=== PATIENT | male | born 1935 | race Caucasian/White ===

== ENCOUNTER → 2016-10-31 | Outpatient (CLI) | payer MEDICARE ==
[2016-10-31 09:50] LABS: APPEARANCE,URINE CLEAR; BILIRUBIN,URINE NEGATIVE (NEGATIVE); GLUCOSE, URINE 50 mg/dL (NEGATIVE); KETONES,URINE NEGATIVE (NEGATIVE); LEUKOCYTE ESTERASE,URINE NEGATIVE (NEGATIVE); NITRITE,URINE NEGATIVE (NEGATIVE); PROTEIN,URINE NEGATIVE (NEGATIVE); URINE SPECIFIC GRAVITY 1.011; UROBILINOGEN,URINE NEGATIVE mg/dL (<2.0)
[2016-10-31 09:57] LABS: ABSOLUTE EOSINOPHILS # (AUTO) 0.1 10^3/uL (0.0-0.6); ABSOLUTE LYMPHOCYTES (AUTO) 1.9 10^3/uL (0.5-4.7); ABSOLUTE MONOCYTES (AUTO) 0.8 10^3/uL (0.1-1.4); ABSOLUTE NEUT (AUTO) 5.6 10^3/uL (1.7-8.2); BASOPHILS % (AUTO) 0.3 % (0-2); HEMATOCRIT 39.9 % (37.9-51.0); HEMOGLOBIN 12.8 g/dL (13.5-17.0); HGB HCT DIFFERENCE -1.5; LYMPHOCYTES % (AUTO) 22.7 % (13-45); MEAN CORPUSCULAR HEMOGLOBIN 29.7 pg (27.0-33.4); MEAN CORPUSCULAR VOLUME 93 fl (80-97); MONOCYTES % (AUTO) 9.5 % (3-13); RED CELL DISTRIBUTION WIDTH 14.5 % (11.5-14.0); SEGMENTED NEUTROPHILS % (AUTO) 66.5 % (42-78); WHITE BLOOD COUNT 8.4 10^3/uL (4.0-10.5)
[2016-10-31 13:05] LABS: ALANINE AMINOTRANSFERASE 29 U/L (21-72); ALBUMIN 4.4 g/dL (3.5-5.0); ALKALINE PHOSPHATASE 82 U/L (38-126); ANION GAP 12 (5-19); ASPARTATE AMINO TRANSFERASE 27 U/L (17-59); BILIRUBIN,TOTAL 0.8 mg/dL (0.2-1.3); BLOOD UREA NITROGEN 13 mg/dL (7-20); CALCIUM 9.2 mg/dL (8.4-10.2); CARBON DIOXIDE 29 mmol/L (22-30); CHLORIDE 98 mmol/L (98-107); CREATININE RESULT 0.77 mg/dL (0.52-1.25); GLUCOSE 151 mg/dL (75-110); MAGNESIUM 2.3 mg/dL (1.6-2.3); POTASSIUM 5.1 mmol/L (3.6-5.0); SODIUM 139.4 mmol/L (137-145); TOTAL PROTEIN 7.5 g/dL (6.3-8.2)
== END ==
LOC: OD 08:20
PROVIDERS: ATTEND Internal Medicine Cardiovascular Disease
DX: Z79.899 Other long term (current) drug therapy (principal); Z79.01 Long term (current) use of anticoagulants
CPT/HCPCS: 36415; 80048; 80076; 81001; 82272; 83735; 85025; 85730

== ENCOUNTER → 2016-12-05 | Outpatient (CLI) | payer MEDICARE ==
[2016-12-05 09:11] LABS: ANION GAP 12 (5-19); BLOOD UREA NITROGEN 12 mg/dL (7-20); CALCIUM 9.6 mg/dL (8.4-10.2); CARBON DIOXIDE 26 mmol/L (22-30); CHLORIDE 100 mmol/L (98-107); CREATININE RESULT 0.72 mg/dL (0.52-1.25); GLUCOSE 146 mg/dL (75-110); MAGNESIUM 2.4 mg/dL (1.6-2.3); POTASSIUM 5.3 mmol/L (3.6-5.0); SODIUM 137.8 mmol/L (137-145)
== END ==
LOC: OD 07:20
PROVIDERS: ATTEND Internal Medicine Cardiovascular Disease
DX: Z79.899 Other long term (current) drug therapy (principal); Z79.01 Long term (current) use of anticoagulants
CPT/HCPCS: 36415; 80048; 83735

== ENCOUNTER → 2016-12-13 | Outpatient (CLI) | payer MEDICARE ==
[2016-12-13 11:03] LABS: ABSOLUTE EOSINOPHILS # (AUTO) 0.1 10^3/uL (0.0-0.6); ABSOLUTE LYMPHOCYTES (AUTO) 1.9 10^3/uL (0.5-4.7); ABSOLUTE MONOCYTES (AUTO) 0.6 10^3/uL (0.1-1.4); BASOPHILS % (AUTO) 0.2 % (0-2); EOSINOPHILS % (AUTO) 1.5 % (0-6); HEMATOCRIT 36.1 % (37.9-51.0); HEMOGLOBIN 12.1 g/dL (13.5-17.0); HGB HCT DIFFERENCE 0.2; LYMPHOCYTES % (AUTO) 21.3 % (13-45); MEAN CORPUSCULAR HEMOGLOBIN 30.5 pg (27.0-33.4); MEAN CORPUSCULAR HGB CONC 33.6 g/dL (32.0-36.0); MEAN CORPUSCULAR VOLUME 91 fl (80-97); MONOCYTES % (AUTO) 7.5 % (3-13); RED BLOOD COUNT 3.98 10^6/uL (4.35-5.55); SEGMENTED NEUTROPHILS % (AUTO) 69.5 % (42-78); WHITE BLOOD COUNT 8.7 10^3/uL (4.0-10.5)
[2016-12-13 11:25] LABS: ALANINE AMINOTRANSFERASE 25 U/L (21-72); ALBUMIN 4.1 g/dL (3.5-5.0); ALKALINE PHOSPHATASE 79 U/L (38-126); ANION GAP 12 (5-19); ASPARTATE AMINO TRANSFERASE 25 U/L (17-59); BLOOD UREA NITROGEN 13 mg/dL (7-20); CALCIUM 9.5 mg/dL (8.4-10.2); CARBON DIOXIDE 28 mmol/L (22-30); CHLORIDE 100 mmol/L (98-107); CHOLESTEROL 104.87 mg/dL (0-200); CREATININE RESULT 0.76 mg/dL (0.52-1.25); Direct HDL 36 mg/dL (>40); GLUCOSE 128 mg/dL (75-110); POTASSIUM 4.7 mmol/L (3.6-5.0); SODIUM 139.8 mmol/L (137-145); TOTAL PROTEIN 7.2 g/dL (6.3-8.2); TRIGLYCERIDES 112 mg/dL (<150)
[2016-12-13 11:28] LABS: ANION GAP 12 (5-19); BLOOD UREA NITROGEN 13 mg/dL (7-20); CALCIUM 9.7 mg/dL (8.4-10.2); CARBON DIOXIDE 28 mmol/L (22-30); CHLORIDE 101 mmol/L (98-107); CREATININE RESULT 0.76 mg/dL (0.52-1.25); GLUCOSE 128 mg/dL (75-110); POTASSIUM 4.8 mmol/L (3.6-5.0); SODIUM 140.7 mmol/L (137-145)
[2016-12-13 11:36] LABS: DIRECT LDL 38 mg/dL (<100)
== END ==
LOC: OD 08:45
PROVIDERS: ATTEND Internal Medicine Geriatric Medicine
DX: E78.5 Hyperlipidemia, unspecified (principal); I10 Essential (primary) hypertension; R06.02 Shortness of breath; E87.5 Hyperkalemia
CPT/HCPCS: 36415; 80048; 80053; 80061; 83880; 85025

== ENCOUNTER → 2017-01-19 | Outpatient (CLI) | payer MEDICARE ==
[2017-01-19 08:55] LABS: ABSOLUTE EOSINOPHILS # (AUTO) 0.1 10^3/uL (0.0-0.6); ABSOLUTE MONOCYTES (AUTO) 0.7 10^3/uL (0.1-1.4); ABSOLUTE NEUT (AUTO) 4.7 10^3/uL (1.7-8.2); BASOPHILS % (AUTO) 0.2 % (0-2); EOSINOPHILS % (AUTO) 1.8 % (0-6); HEMATOCRIT 35.7 % (37.9-51.0); HEMOGLOBIN 11.9 g/dL (13.5-17.0); LYMPHOCYTES % (AUTO) 26.7 % (13-45); MEAN CORPUSCULAR HEMOGLOBIN 30.4 pg (27.0-33.4); MEAN CORPUSCULAR HGB CONC 33.3 g/dL (32.0-36.0); MEAN CORPUSCULAR VOLUME 91 fl (80-97); MONOCYTES % (AUTO) 9.3 % (3-13); RED BLOOD COUNT 3.91 10^6/uL (4.35-5.55); RED CELL DISTRIBUTION WIDTH 15.3 % (11.5-14.0); WHITE BLOOD COUNT 7.5 10^3/uL (4.0-10.5)
[2017-01-19 09:04] LABS: APPEARANCE,URINE CLEAR; BILIRUBIN,URINE NEGATIVE (NEGATIVE); GLUCOSE, URINE NEGATIVE (NEGATIVE); KETONES,URINE NEGATIVE (NEGATIVE); LEUKOCYTE ESTERASE,URINE NEGATIVE (NEGATIVE); NITRITE,URINE NEGATIVE (NEGATIVE); PROTEIN,URINE NEGATIVE (NEGATIVE); URINE SPECIFIC GRAVITY 1.014; UROBILINOGEN,URINE NEGATIVE mg/dL (<2.0)
[2017-01-19 09:18] LABS: ALANINE AMINOTRANSFERASE 19 U/L (21-72); ALKALINE PHOSPHATASE 71 U/L (38-126); ANION GAP 14 (5-19); ASPARTATE AMINO TRANSFERASE 19 U/L (17-59); BILIRUBIN,TOTAL 0.8 mg/dL (0.2-1.3); BLOOD UREA NITROGEN 12 mg/dL (7-20); CALCIUM 8.9 mg/dL (8.4-10.2); CARBON DIOXIDE 26 mmol/L (22-30); CHLORIDE 102 mmol/L (98-107); CREATININE RESULT 0.72 mg/dL (0.52-1.25); Direct HDL 33 mg/dL (>40); GLUCOSE 133 mg/dL (75-110); MAGNESIUM 2.3 mg/dL (1.6-2.3); POTASSIUM 4.4 mmol/L (3.6-5.0); SODIUM 141.7 mmol/L (137-145); TOTAL PROTEIN 6.6 g/dL (6.3-8.2); TRIGLYCERIDES 124 mg/dL (<150)
[2017-01-19 09:29] LABS: DIRECT LDL 49 mg/dL (<100)
== END ==
LOC: OD 08:09
PROVIDERS: ATTEND Internal Medicine Cardiovascular Disease
DX: E78.00 Pure hypercholesterolemia, unspecified (principal); E87.5 Hyperkalemia; Z79.899 Other long term (current) drug therapy; Z79.01 Long term (current) use of anticoagulants
CPT/HCPCS: 36415; 80048; 80061; 80076; 81001; 82272; 83735; 85025; 85730

== ENCOUNTER → 2017-04-27 | Outpatient (CLI) | payer MEDICARE ==
[2017-04-27 08:43] LABS: APPEARANCE,URINE CLEAR; BILIRUBIN,URINE NEGATIVE (NEGATIVE); GLUCOSE, URINE NEGATIVE (NEGATIVE); KETONES,URINE NEGATIVE (NEGATIVE); LEUKOCYTE ESTERASE,URINE NEGATIVE (NEGATIVE); NITRITE,URINE NEGATIVE (NEGATIVE); PROTEIN,URINE NEGATIVE (NEGATIVE); URINE SPECIFIC GRAVITY 1.006; UROBILINOGEN,URINE NEGATIVE mg/dL (<2.0)
[2017-04-27 08:51] LABS: ABSOLUTE EOSINOPHILS # (AUTO) 0.1 10^3/uL (0.0-0.6); ABSOLUTE LYMPHOCYTES (AUTO) 1.5 10^3/uL (0.5-4.7); ABSOLUTE MONOCYTES (AUTO) 0.7 10^3/uL (0.1-1.4); ABSOLUTE NEUT (AUTO) 4.5 10^3/uL (1.7-8.2); BASOPHILS % (AUTO) 0.3 % (0-2); EOSINOPHILS % (AUTO) 1.8 % (0-6); HEMATOCRIT 36.1 % (37.9-51.0); HEMOGLOBIN 12.1 g/dL (13.5-17.0); HGB HCT DIFFERENCE 0.2; LYMPHOCYTES % (AUTO) 21.8 % (13-45); MEAN CORPUSCULAR HEMOGLOBIN 30.7 pg (27.0-33.4); MEAN CORPUSCULAR HGB CONC 33.5 g/dL (32.0-36.0); MEAN CORPUSCULAR VOLUME 92 fl (80-97); RED BLOOD COUNT 3.94 10^6/uL (4.35-5.55); RED CELL DISTRIBUTION WIDTH 15.3 % (11.5-14.0); SEGMENTED NEUTROPHILS % (AUTO) 66.1 % (42-78); WHITE BLOOD COUNT 6.8 10^3/uL (4.0-10.5)
[2017-04-27 09:09] LABS: ALANINE AMINOTRANSFERASE 26 U/L (21-72); ALBUMIN 3.8 g/dL (3.5-5.0); ALKALINE PHOSPHATASE 77 U/L (38-126); ANION GAP 11 (5-19); ASPARTATE AMINO TRANSFERASE 15 U/L (17-59); BILIRUBIN,DIRECT 0.2 mg/dL (0.0-0.4); BILIRUBIN,TOTAL 0.7 mg/dL (0.2-1.3); BLOOD UREA NITROGEN 10 mg/dL (7-20); CALCIUM 8.6 mg/dL (8.4-10.2); CARBON DIOXIDE 26 mmol/L (22-30); CHLORIDE 104 mmol/L (98-107); CREATININE RESULT 0.76 mg/dL (0.52-1.25); GLUCOSE 117 mg/dL (75-110); MAGNESIUM 2.4 mg/dL (1.6-2.3); POTASSIUM 4.5 mmol/L (3.6-5.0); SODIUM 140.5 mmol/L (137-145); TOTAL PROTEIN 6.9 g/dL (6.3-8.2)
== END ==
LOC: OD 08:06
PROVIDERS: ATTEND Internal Medicine Cardiovascular Disease
DX: Z51.81 Encounter for therapeutic drug level monitoring (principal); Z79.899 Other long term (current) drug therapy; Z79.01 Long term (current) use of anticoagulants
CPT/HCPCS: 36415; 80048; 80076; 81001; 82272; 83735; 85025; 85730

== ENCOUNTER 2017-06-26 11:54 | Inpatient (IN) | payer MEDICARE ==
--- NOTE | 2017-06-26 12:36 | ER Document Report ---
ED General - General Chief Complaint: Weakness Stated Complaint: WEAKNESS Time Seen by Provider: 06/26/17 12:17 TRAVEL OUTSIDE OF THE [place] IN LAST 30 DAYS: No - HPI Notes: 81-year-old male with history of atrial fibrillation on Xarelto presents with generalized weakness and profound fatigue. He denies any other new symptoms though finally does admit to a mild amount of nausea this morning. He does have cough but this is chronic as he has a chronic lung condition but is unsure of his COPD. He has had no fever. There is no productive sputum. Denies dysuria hematuria. No fever. Denies any new discomfort, specifically no chest pain or abdominal pain. He has noted no melena or hematochezia. Denies focal weakness numbness or tingling. Symptoms have started over the last [address] Ac. - Related Data Allergies/Adverse Reactions: tetracycline [Tetracycline] Allergy (Verified 08/06/15 14:28) dairy products Allergy (Uncoded 10/28/14 21:21) Home Medications: Current Home Medications Benzonatate [Tessalon Perles 100 mg Capsule] 100 mg PO PRN PRN 06/26/17 [History ] Diltiazem HCl [Cartia Xt] 180 mg PO DAILY 06/26/17 [History] Rivaroxaban [Xarelto] 20 mg PO DAILY 06/26/17 [History] Past Medical History - Social History Smoking Status: Never Smoker Family History: Reviewed & Not Pertinent Patient has suicidal ideation: No - Past Medical History Cardiac Medical History: Reports: Hx Coronary Artery Disease, Hx Heart Attack, Hx Hypertension Pulmonary Medical History: Reports: Hx Bronchitis, Hx COPD, Hx Pneumonia Denies: Hx Asthma Neurological Medical History: Denies: Hx Cerebrovascular Accident, Hx Seizures Renal/ Medical History: Denies: Hx Peritoneal Dialysis Malignancy Medical History: Reports Hx Skin Cancer Musculoskeltal Medical History: Reports Hx Arthritis - RA Psychiatric Medical History: Reports: Hx Depression Past Surgical History: Reports: Hx Appendectomy, Hx Cardiac Catheterization - with stents, Hx Coronary Stent, Hx Orthopedic Surgery - facial, right hand - Immunizations Hx Diphtheria, Pertussis, Tetanus Vaccination: Yes Hx Pneumococcal Vaccination: 07/09/14 Review of Systems - Review of Systems -: Yes All other systems reviewed and negative Physical Exam - Vital signs Vitals: Temp Pulse Resp BP Pulse Ox 98.7 F 79 20 131/65 H 94 06/26/17 12:04 06/26/17 12:04 06/26/17 12:04 06/26/17 12:04 06/26/17 12:04 - Notes Notes: GENERAL: VS as per nursing doc. Well-appearing, well-nourished and in no acute distress. HEAD: Atraumatic, normocephalic. EYES: Pupils equal round and reactive to light, extraocular movements intact, sclera anicteric. ENT: Nares patent, oropharynx clear without exudates, moist mucous membranes. NECK: Normal range of motion, supple without lymphadenopathy. LUNGS: Breath sounds equal bilaterally. Scattered crackles include left basilar region. HEART: Regular rate and rhythm without murmurs. ABDOMEN: Soft, protuberant but non-tender, normoactive bowel sounds. No guarding, no rebound. No masses appreciated. No Herbster sign. BACK: No CVA tenderness. EXTREMITIES: Normal range of motion, no calf tenderness, no edema. NEUROLOGICAL: Cranial nerves grossly intact. Normal speech. Normal sensory and motor exams. No gross cerebellar abnormalities. PSYCH: Normal mood, normal affect. SKIN: Warm, dry, normal turgor. Course - Re-evaluation Re-evalutation: 06/26/17 14:41 Reviewed patient's prior white blood cell counts. This is elevated compared to prior at 16.2. - Vital Signs Vital signs: Temp Pulse Resp BP Pulse Ox 98.7 F 79 19 110/59 L 93 06/26/17 12:04 06/26/17 12:04 06/26/17 13:03 06/26/17 13:03 06/26/17 13:03 - Laboratory Result Diagrams: 06/26/17 12:36 06/26/17 12:36 Laboratory results interpreted by me: 06/26/17 06/26/17 06/26/17 12:36 12:36 13:50 WBC 16.2 H RBC 4.18 L Hgb 13.0 L Hct 37.5 L RDW 15.3 H Seg Neutrophils % 89.2 H Lymphocytes % 6.0 L Absolute Neutrophils 14.5 H Glucose 123 H ALT 19 L Urine Ketones TRACE H Urine Ascorbic Acid 40 H - Diagnostic Test Radiology reviewed: Image reviewed, Reports reviewed - Possible left lower lobe pneumonia. - EKG Interpretation by Me EKG shows normal: Sinus rhythm - Right bundle branch block, borderline first- degree AV block. Normal sinus rhythm. Rate 80. No significant change from October 30, 2014 though rate has decreased - Consults Dr. Ac Time consulted: 14:47 - Recommends admit to Tele Discharge - Discharge Clinical Impression: Pneumonia, Fatigue Condition: Fair Disposition: ADMITTED INPATIENT Admitting Provider: Luz Unit Admitted: Telemetry Referrals: SAMUEL AC MD [Primary Care Provider] - Follow up as needed
[2017-06-26 12:48] LABS: ABSOLUTE MONOCYTES (AUTO) 0.8 10^3/uL (0.1-1.4); ABSOLUTE NEUT (AUTO) 14.5 10^3/uL (1.7-8.2); BASOPHILS % (AUTO) 0.1 % (0-2); HEMATOCRIT 37.5 % (37.9-51.0); HGB HCT DIFFERENCE 1.5; MEAN CORPUSCULAR HGB CONC 34.5 g/dL (32.0-36.0); MEAN CORPUSCULAR VOLUME 90 fl (80-97); MONOCYTES % (AUTO) 4.7 % (3-13); RED BLOOD COUNT 4.18 10^6/uL (4.35-5.55); RED CELL DISTRIBUTION WIDTH 15.3 % (11.5-14.0); SEGMENTED NEUTROPHILS % (AUTO) 89.2 % (42-78); WHITE BLOOD COUNT 16.2 10^3/uL (4.0-10.5)
[2017-06-26 13:12] LABS: ALANINE AMINOTRANSFERASE 19 U/L (21-72); ALBUMIN 4.1 g/dL (3.5-5.0); ALKALINE PHOSPHATASE 89 U/L (38-126); ANION GAP 13 (5-19); ASPARTATE AMINO TRANSFERASE 20 U/L (17-59); BILIRUBIN,DIRECT 0.4 mg/dL (0.0-0.4); BILIRUBIN,TOTAL 1.1 mg/dL (0.2-1.3); BLOOD UREA NITROGEN 15 mg/dL (7-20); CARBON DIOXIDE 26 mmol/L (22-30); CHLORIDE 101 mmol/L (98-107); CREATININE RESULT 0.83 mg/dL (0.52-1.25); GLUCOSE 123 mg/dL (75-110); MAGNESIUM 2.3 mg/dL (1.6-2.3); POTASSIUM 4.4 mmol/L (3.6-5.0); TOTAL PROTEIN 7.3 g/dL (6.3-8.2)
--- NOTE | 2017-06-26 13:13 | RADIOLOGY REPORT (SQ) ---
EXAM DESCRIPTION: CHEST PA/LAT COMPLETED DATE/TIME: 06/26/2017 1:04 pm REASON FOR STUDY: Cough COMPARISON: 10/28/2014 EXAM PARAMETERS: NUMBER OF VIEWS: two views TECHNIQUE: Digital Frontal and Lateral radiographic views of the chest acquired. RADIATION DOSE: NA LIMITATIONS: none FINDINGS: LUNGS AND PLEURA: Chronic interstitial changes are present. There is perhaps slightly inc reased opacification in the retrocardiac area on the left. MEDIASTINUM AND HILAR STRUCTURES: No masses or contour abnormalities. HEART AND VASCULAR STRUCTURES: Heart normal size. No evidence for failure. BONES: No acute findings. HARDWARE: None in the chest. OTHER: No other significant finding. IMPRESSION: Left lower lobe pneumonia cannot be excluded. TECHNICAL DOCUMENTATION: JOB ID: [id number] [employer]- All Rights Reserved
--- NOTE | 2017-06-26 13:14 | EKG REPORT ---
SEVERITY:- ABNORMAL ECG - SINUS RHYTHM RIGHT BUNDLE BRANCH BLOCK : Confirmed by: Carlos Young MD 26-Jun-2017 13:13:36
[2017-06-26 14:16] LABS: APPEARANCE,URINE CLEAR; BILIRUBIN,URINE NEGATIVE (NEGATIVE); GLUCOSE, URINE NEGATIVE (NEGATIVE); KETONES,URINE TRACE mg/dL (NEGATIVE); LEUKOCYTE ESTERASE,URINE NEGATIVE (NEGATIVE); NITRITE,URINE NEGATIVE (NEGATIVE); PROTEIN,URINE NEGATIVE (NEGATIVE); URINE SPECIFIC GRAVITY 1.024; UROBILINOGEN,URINE NEGATIVE mg/dL (<2.0)
[2017-06-26] MEDS ORDERED: LEVOFLOXACIN 750 MG/D5W RTU 750 MG/150 ML RTUPB IV ONE (14:46)
--- NOTE | 2017-06-26 15:50 | PDOC H&P ---
History of Present Illness Admission Date/PCP: 06/26/17 15:18 SAMUEL AC Patient complains of: Weakness and Fatigue History of Present Illness: KEIRY IVERSON JR is a 81 year old male known to my practice who presented to the ED with complain of weakness and fatigue that started since yesterday while he was at [facility]. Patient reported that he administered his biweekly Methotrexate the day before onset of his symptoms. He denied any definite fever or chills. Admitted to productive coughing which is related to his chronic interstitial lung disease. Denied any significant change in the color except intermittent greenish yellow ting. No brownish or bloody component. He denied any significant chest pain. Patient reported nausea but no vomiting. No abdominal pain. He denied any urinary symptoms to suggest any ongoing infection. Morbidities include CAD s/p stent angioplasty, Old AL, Hypertension, Chronic Interstitial Lung Disease, COPD, BPH with outflow symptoms, Rheumatoid arthritis, and Depression. Past Medical History Cardiac Medical History: Reports: Coronary Artery Disease, Myocardial Infarction , Hyperlipidema, Hypertension Pulmonary Medical History: Reports: Bronchitis, Chronic Obstructive Pulmonary Disease (COPD), Pneumonia Denies: Asthma Neurological Medical History: Denies: Seizures Endocrine Medical History: Reports: Diabetes Mellitus Type 2 Malignancy Medical History: Reports: Skin Cancer Musculoskeltal Medical History: Reports: Arthritis - RA Psychiatric Medical History: Reports: Depression Hematology: Denies: Anemia Past Surgical History Past Surgical History: Reports: Appendectomy, Cardiac Catheterization - with stents, Coronary Stent, Orthopedic Surgery - facial, right hand Social History Smoking Status: Never Smoker Frequency of Alcohol Use: Rare Hx Recreational Drug Use: No Hx Prescription Drug Abuse: No Family History Family History: Reviewed & Not Pertinent Parental Family History Reviewed: Yes Children Family History Reviewed: Yes Sibling(s) Family History Reviewed.: Yes Medication/Allergy Home Medications: Methotrexate Sodium [Methotrexate] 2.5 mg PO ASDIR 08/13/13 Tamsulosin HCl [Flomax 0.4 mg Cap.sr] 0.4 mg PO QPM #30 cap.sr.24h 06/03/14 Aclidinium Camilla [Tudorza Pressair for Inh] 1 inhaler IH BID #1 [email or web address] Aspirin [Ecotrin 81 mg EC Tablet] 81 mg PO DAILY #30 tabec 11/03/14 Fluticasone Propionate [Flovent HFA 44 mcg MDI] 2 sprays IH DAILY #1 inhaler Fluticasone/Vilanterol [Breo Ellipta 100-25 Mcg INH] 1 each IH DAILY #1 aer.[email or web address] 11/03/14 Folic Acid 1 mg PO DAILY #30 tablet 11/03/14 Nitroglycerin [Nitrostat 0.4 mg (1/150 Gr) Tabs 25/Bottle] 1 tab SL Q5MP PRN #1 bottle 11/03/14 Rosuvastatin Calcium [Crestor 20 mg Tablet] 20 mg PO QHS #30 tablet 11/03/14 Furosemide [Lasix 40 mg Tablet] 20 mg PO ASDIR PRN 08/06/15 Sotalol HCl [Sotalol] 80 mg PO BID 08/06/15 Benzonatate [Tessalon Perles 100 mg Capsule] 100 mg PO PRN PRN 06/26/17 Diltiazem HCl [Cartia Xt] 180 mg PO DAILY 06/26/17 Rivaroxaban [Xarelto] 20 mg PO DAILY 06/26/17 Allergies/Adverse Reactions: tetracycline [Tetracycline] Allergy (Verified 08/06/15 14:28) dairy products Allergy (Uncoded 10/28/14 21:21) Review of Systems Constitutional: PRESENT: fatigue, weakness. ABSENT: as per HPI, anorexia, chills, fever(s), headache(s), night sweats, weight gain, weight loss, other Eyes: PRESENT: visual disturbances - macula degeneration Ears: ABSENT: hearing changes Nose, Mouth, and Throat: ABSENT: headache(s), sore throat Cardiovascular: ABSENT: chest pain, dyspnea on exertion, edema, orthropnea, palpitations Respiratory: PRESENT: cough, sputum. ABSENT: as per HPI, dyspnea, hemoptysis, other Gastrointestinal: ABSENT: abdominal pain, constipation, diarrhea, hematemesis, hematochezia, nausea, vomiting Musculoskeletal: ABSENT: joint swelling Integumentary: ABSENT: rash, wounds Neurological: ABSENT: abnormal gait, abnormal speech, confusion, dizziness, focal weakness, syncope Psychiatric: ABSENT: anxiety, depression, homidical ideation, suicidal ideation Endocrine: ABSENT: cold intolerance, heat intolerance, polydipsia, polyuria Hematologic/Lymphatic: ABSENT: easy bleeding, easy bruising, lymphadenopathy Allergic/Immunologic: PRESENT: seasonal rhinorrhea Physical Exam Vital Signs: Temp Pulse Resp BP Pulse Ox 98.7 F 79 19 110/59 L 93 06/26/17 12:04 06/26/17 12:04 06/26/17 13:03 06/26/17 13:03 06/26/17 13:03 General appearance: PRESENT: no acute distress Head exam: PRESENT: atraumatic, normocephalic Eye exam: PRESENT: conjunctiva pink, EOMI, PERRLA. ABSENT: conjunctiva pale, scleral icterus Ear exam: PRESENT: normal external ear exam Mouth exam: PRESENT: moist, tongue midline Throat exam: ABSENT: post pharyngeal erythema, tonsillar erythema, tonsillar exudate, tonsillogmegaly, other Neck exam: PRESENT: full ROM. ABSENT: carotid bruit, JVD, lymphadenopathy, thyromegaly Respiratory exam: PRESENT: crackles - scattered, bilateral, posterior, decreased breath sounds - at lung bases Cardiovascular exam: PRESENT: RRR. ABSENT: diastolic murmur, rubs, systolic murmur Pulses: PRESENT: normal dorsalis pedis pul, +2 pedal pulses bilateral Vascular exam: PRESENT: normal capillary refill. ABSENT: pallor GI/Abdominal exam: PRESENT: normal bowel sounds, soft. ABSENT: distended, guarding, mass, organolmegaly, rebound, tenderness Rectal exam: PRESENT: deferred Gentrourinary exam: ABSENT: indwelling catheter Extremities exam: ABSENT: pedal edema Musculoskeletal exam: PRESENT: normal inspection Neurological exam: PRESENT: alert, awake, oriented to person, oriented to place , oriented to time, oriented to situation, CN II-XII grossly intact. ABSENT: motor sensory deficit Psychiatric exam: PRESENT: appropriate affect, normal mood. ABSENT: homicidal ideation, suicidal ideation Skin exam: PRESENT: dry, intact, warm. ABSENT: cyanosis, rash Results Laboratory Results: I reviewed his lab results on [employer] and contribute to my medical decision making Impressions: Chest X-Ray 06/26/17 12:31 IMPRESSION: Left lower lobe pneumonia cannot be excluded. Assessment & Plan - Diagnosis (1) Lobar pneumonia, unspecified organism Is this a current diagnosis for this admission?: Yes Plan: See admitting attending physician orders. (2) COPD (chronic obstructive pulmonary disease) Qualifiers: Emphysema type: unspecified Is this a current diagnosis for this admission?: Yes Plan: See admitting attending physician orders. (3) Rheumatoid arthritis Qualifiers: Laterality: unspecified laterality Is this a current diagnosis for this admission?: Yes Plan: See admitting attending physician orders. (5) HTN (hypertension) Qualifiers: Hypertension type: unspecified Qualified Code(s): I10 - Essential (primary ) hypertension Is this a current diagnosis for this admission?: Yes Plan: See admitting attending physician orders. - Time Time Spent: 50 to 70 Minutes Medications reviewed and adjusted accordingly: Yes Anticipated discharge: Home Within: Other - Inpatient Certification Medical Necessity: Need Close Monitoring Due to Risk of Patient Decompensation, Need For IV Fluids, Need For Continuous Telemetry Monitoring, Need for Nebulizer Therapy and Monitoring of Response, Need for IV Antibiotics, Risk of Complication if Not Cared For in Hospital Post Hospital Care: D/C Systems Support Officer Documentation - Plan Summary Plan Summary: See admitting attending physician orders.
[2017-06-26] MEDS ORDERED: GUAIFENESIN SYRP 200 MG/10 ML UDC PO PRN (15:51)
[2017-06-26] MEDS ORDERED: IPRATROPIUM/ALBUTEROL 0.5-2.5 MG/3 ML AMPUL NEB PRN (15:51)
[2017-06-26] MEDS ORDERED: NITROGLYCERIN 0.4 MG/TAB 25 TAB/BOTTLE SL PRN (15:57)
[2017-06-26 16:22] LABS: PROTHROMBIN TIME 17.9 SEC (11.4-15.4)
[2017-06-26 16:23] LABS: PARTIAL THROMBOPLASTIN TIME 39.9 SEC (23.5-35.8)
[2017-06-26] MEDS ORDERED: ACLIDINIUM BROMIDE IH SCH (18:00)
[2017-06-26] MEDS ORDERED: SOTALOL HCL 80 MG TABLET PO SCH (18:00)
[2017-06-26] MEDS: TAMSULOSIN HCL 0.4 MG CAP.SR.24H PO SCH (18:34)
[2017-06-26] MEDS: RIVAROXABAN 10 MG TABLET PO SCH (18:35)
[2017-06-26] MEDS: CEFEPIME 2 GM/D5W RTU 2 GM/50 ML RTUPB IV SCH (18:39)
[2017-06-26] MEDS: NORMAL SALINE 1000 ML 1,000 ML IV PRN (19:02)
[2017-06-26] MEDS ORDERED: (PENDING PHARMACY ID) (Rosuvastatin Calcium [Crestor 20 Mg Tablet] 20 MG) PO SCH (22:00)
[2017-06-26] MEDS: FLUTICASONE NASAL SPRAY 50 MCG/SPRY 120 SPRAY/16 GM NASL SCH (23:23)
[2017-06-26] MEDS: ATORVASTATIN CALCIUM 40 MG TABLET PO SCH (23:26)
[2017-06-26] MEDS: BENZONATATE 100 MG CAPSULE PO PRN (23:32)
[2017-06-26] MEDS: GUAIFENESIN 600 MG TABLET.SA PO SCH (23:32)
[2017-06-27 04:46] LABS: ABSOLUTE EOSINOPHILS # (AUTO) 0.1 10^3/uL (0.0-0.6); ABSOLUTE LYMPHOCYTES (AUTO) 1.7 10^3/uL (0.5-4.7); ABSOLUTE MONOCYTES (AUTO) 0.8 10^3/uL (0.1-1.4); BASOPHILS % (AUTO) 0.4 % (0-2); EOSINOPHILS % (AUTO) 0.6 % (0-6); HEMATOCRIT 31.7 % (37.9-51.0); HGB HCT DIFFERENCE 1.3; LYMPHOCYTES % (AUTO) 14.4 % (13-45); MEAN CORPUSCULAR HGB CONC 34.6 g/dL (32.0-36.0); MEAN CORPUSCULAR VOLUME 90 fl (80-97); MONOCYTES % (AUTO) 7.2 % (3-13); RED BLOOD COUNT 3.54 10^6/uL (4.35-5.55); RED CELL DISTRIBUTION WIDTH 15.6 % (11.5-14.0); SEGMENTED NEUTROPHILS % (AUTO) 77.4 % (42-78); WHITE BLOOD COUNT 11.6 10^3/uL (4.0-10.5)
[2017-06-27 05:00] LABS: ALANINE AMINOTRANSFERASE 20 U/L (21-72); ALBUMIN 3.2 g/dL (3.5-5.0); ALKALINE PHOSPHATASE 68 U/L (38-126); ANION GAP 9 (5-19); ASPARTATE AMINO TRANSFERASE 14 U/L (17-59); BILIRUBIN,DIRECT 0.3 mg/dL (0.0-0.4); BILIRUBIN,TOTAL 1.1 mg/dL (0.2-1.3); BLOOD UREA NITROGEN 14 mg/dL (7-20); CALCIUM 8.3 mg/dL (8.4-10.2); CARBON DIOXIDE 27 mmol/L (22-30); CHLORIDE 103 mmol/L (98-107); CREATININE RESULT 0.72 mg/dL (0.52-1.25); GLUCOSE 109 mg/dL (75-110); POTASSIUM 4.3 mmol/L (3.6-5.0); SODIUM 138.5 mmol/L (137-145)
[2017-06-27] MEDS: SOTALOL HCL 80 MG TABLET PO SCH ×2 (06:07→18:12)
[2017-06-27] MEDS: LANSOPRAZOLE 30 MG TAB.RAP.DR PO SCH (06:07)
[2017-06-27] MEDS: CEFEPIME 2 GM/D5W RTU 2 GM/50 ML RTUPB IV SCH ×2 (06:57→19:41)
[2017-06-27] MEDS ORDERED: (PENDING PHARMACY ID) (Fluticasone/Vilanterol [Breo Ellipta 100-25 Mcg Inh] 1 EACH) IH SCH (10:00)
[2017-06-27] MEDS ORDERED: DILTIAZEM HCL 180 MG CAPSULE.CR PO SCH (10:00)
[2017-06-27] MEDS ORDERED: FLUTICASONE PROPIONATE IH SCH (10:00)
[2017-06-27] MEDS ORDERED: (PENDING PHARMACY ID) (Diltiazem Hcl [Cartia Xt] 180 MG) PO SCH (10:00)
[2017-06-27] MEDS: FOLIC ACID 1 MG TABLET PO SCH (10:13)
[2017-06-27] MEDS: FUROSEMIDE 20 MG TABLET PO SCH (10:13)
[2017-06-27] MEDS: GUAIFENESIN 600 MG TABLET.SA PO SCH ×2 (10:13→22:41)
[2017-06-27] MEDS: DILTIAZEM HCL 180 MG CAPSULE.CR PO SCH (10:13)
[2017-06-27] MEDS: NORMAL SALINE 1000 ML 1,000 ML IV PRN ×2 (10:15→22:41)
--- NOTE | 2017-06-27 11:06 | Physician Advisory Note ---
Physician Advisor ProgressNote .: Pursuant to the plan for [facility], I have reviewed the medical record for this patient. Physician Advisor Statement: Please consider documenting, if you agree: 1. "LLL Pneumonia, could be gram neg given COPD, ILD, immunocompromise" - giving abx covering Gram negatives 2. "Immunocompromised due to MTX" 3. "Chronic Afib" vs "Paroxysmal Afib" 4. "Pt has risk for acute systolic/diastolic CHF developing while on IVF given EF 45-50% w/LVH & mod pulmonary HTN, so IVF rate is cautious" 5. 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 HR 70s-90s initially despite Sotatol which has kept HR bradycardic as of 06/27, RR as high as 22, sats on RA as low as 90%, BP dropped from 131/65 progressively to as low as 105/52 the first day. WBC 16.2, CXR = LLL PNA. Attending ordered IV Cefepime/Levaquin, NS (only at 75ml/hr, but pt has risk for acute syst/diast CHF based on ECHO of 2014 showing EF 45-50%, mod pulm HTN, mild-mod concentric LVH & RVH), O2, sputum cx, CPAP at hs. -This is not a typical otherwise-healthy adult with a pneumonia that can be managed outpatient. -He is immunocompromised, had prominent leukocytosis, showed tachycardia initially in spite of his Sotatol, and had borderline O2 sats. -His pulmonary decompensation increases risk for cardiac acute decompensation, especially given his advanced age, underlying CAD, and non-optimal O2 sats. -He has risk factors for gram negative PNA, and is being tx'd for that. -His IVF, given because , put him at increased risk for acute syst/diast CHF developing, so attending is giving them cautiously and keeping him closely monitored. -After 1 night of aggressive tx, patient still has leukocytosis. -Coags are elevated on Xarelto & his Hgb has dropped significantly, from 13 to 11, though without evidence of acute bleeding noted by this reviewer (Hgb was baseline 12 recently, so this may not be enough to concern attending unless he documents otherwise). -The anemia increases further the risks for cardiac compromise in this setting. -The stakes of sending him home on insufficient abx therapy are very high, so attending likely wants to see sputum cx results before d/c. -Pt clearly is not sufficiently medically optimized for safe d/c home at this point. Appropriate for Inpatient status. CK
[2017-06-27] MEDS ORDERED: LEVOFLOXACIN 750 MG/D5W RTU 750 MG/150 ML RTUPB IV SCH (18:00)
[2017-06-27] MEDS: TAMSULOSIN HCL 0.4 MG CAP.SR.24H PO SCH (18:12)
[2017-06-27] MEDS: RIVAROXABAN 10 MG TABLET PO SCH (18:13)
--- NOTE | 2017-06-27 20:11 | PDOC PROGRESS REPORT ---
Subjective Progress Note for:: 06/27/17 Subjective:: Patient reported some improvement in his breathing, coughing and overall health status today. No reported fever or chills. Remain on IV Cefepime and Levofloxacin therapy. No chest pain, nausea or vomiting. No abdominal pain. Physical Exam Vital Signs: Temp Pulse Resp BP Pulse Ox 97.5 F 58 L 20 118/55 L 97 06/27/17 15:50 06/27/17 15:50 06/27/17 15:50 06/27/17 15:50 06/27/17 15:50 Intake & Output 06/26/17 06/27/17 06/28/17 06:59 06:59 06:59 Intake Total 1358 2010 Output Total 1150 500 Balance 208 1510 Weight 88.7 kg General appearance: PRESENT: no acute distress Head exam: PRESENT: atraumatic, normocephalic Eye exam: ABSENT: conjunctiva pale, scleral icterus Mouth exam: PRESENT: moist Respiratory exam: PRESENT: crackles - scattered involving both lungs, decreased breath sounds - at lung bases Cardiovascular exam: PRESENT: RRR. ABSENT: diastolic murmur, rubs, systolic murmur Vascular exam: PRESENT: normal capillary refill. ABSENT: pallor GI/Abdominal exam: PRESENT: normal bowel sounds, soft. ABSENT: distended, guarding, mass, organolmegaly, rebound, tenderness Extremities exam: ABSENT: pedal edema Musculoskeletal exam: PRESENT: deformity - due to multuple joints involvement with arthritis Neurological exam: PRESENT: alert, awake, oriented to person, oriented to place , oriented to time, oriented to situation, CN II-XII grossly intact. ABSENT: motor sensory deficit Psychiatric exam: PRESENT: appropriate affect, normal mood. ABSENT: homicidal ideation, suicidal ideation Skin exam: PRESENT: dry, intact, warm. ABSENT: cyanosis, rash Results Laboratory Results: 06/27/17 04:17 06/27/17 04:17 06/27/17 06/27/17 04:17 04:17 WBC 11.6 H RBC 3.54 L Hgb 11.0 L Hct 31.7 L MCV 90 MCH 31.0 MCHC 34.6 RDW 15.6 H Plt Count 216 Seg Neutrophils % 77.4 Lymphocytes % 14.4 Monocytes % 7.2 Eosinophils % 0.6 Basophils % 0.4 Absolute Neutrophils 9.0 H Absolute Lymphocytes 1.7 Absolute Monocytes 0.8 Absolute Eosinophils 0.1 Absolute Basophils 0.0 Sodium 138.5 Potassium 4.3 Chloride 103 Carbon Dioxide 27 Anion Gap 9 BUN 14 Creatinine 0.72 Est GFR ( Amer) > 60 Est GFR (Non-Af Amer) > 60 Glucose 109 Calcium 8.3 L Total Bilirubin 1.1 AST 14 L ALT 20 L Alkaline Phosphatase 68 Total Protein 6.0 L Albumin 3.2 L Impressions: Chest X-Ray 06/26/17 12:31 IMPRESSION: Left lower lobe pneumonia cannot be excluded. Assessment & Plan - Diagnosis (1) Lobar pneumonia, unspecified organism Is this a current diagnosis for this admission?: Yes (2) COPD (chronic obstructive pulmonary disease) Qualifiers: Emphysema type: unspecified Is this a current diagnosis for this admission?: Yes (3) Rheumatoid arthritis Qualifiers: Laterality: unspecified laterality Is this a current diagnosis for this admission?: Yes (5) HTN (hypertension) Qualifiers: Hypertension type: unspecified Qualified Code(s): I10 - Essential (primary ) hypertension Is this a current diagnosis for this admission?: Yes - Time Time Spent with patient: 25-34 minutes Medications reviewed and adjusted accordingly: Yes Anticipated discharge: Home Within: Other - Inpatient Certification Based on my medical assessment, after consideration of the patient's comorbidities, presenting symptoms, or acuity I expect that the services needed warrant INPATIENT care.: Yes I certify that my determination is in accordance with my understanding of Medicare's requirements for reasonable and necessary INPATIENT services [42 CFR 412.3e].: Yes Medical Necessity: Need Close Monitoring Due to Risk of Patient Decompensation, Need For IV Fluids, Need For Continuous Telemetry Monitoring, Need for Nebulizer Therapy and Monitoring of Response, Need for IV Antibiotics, Risk of Complication if Not Cared For in Hospital Post Hospital Care: D/C See Supervisor Documentation - Plan Summary Plan Summary: Continue IV antibiotic coverage. Follow up on sputum and blood culture results. encourage use of incentive spirometer and flutter to aide lung toileting regard sputum production.
[2017-06-27] MEDS: BENZONATATE 100 MG CAPSULE PO PRN (22:41)
[2017-06-27] MEDS: ATORVASTATIN CALCIUM 40 MG TABLET PO SCH (22:41)
[2017-06-27] MEDS: FLUTICASONE NASAL SPRAY 50 MCG/SPRY 120 SPRAY/16 GM NASL SCH (22:43)
[2017-06-28] MEDS: CEFEPIME 2 GM/D5W RTU 2 GM/50 ML RTUPB IV SCH ×2 (06:47→18:17)
[2017-06-28] MEDS: LANSOPRAZOLE 30 MG TAB.RAP.DR PO SCH (06:48)
[2017-06-28] MEDS: SOTALOL HCL 80 MG TABLET PO SCH ×2 (07:37→18:17)
[2017-06-28] MEDS: GUAIFENESIN 600 MG TABLET.SA PO SCH ×2 (09:55→22:12)
[2017-06-28] MEDS: DILTIAZEM HCL 180 MG CAPSULE.CR PO SCH (09:55)
[2017-06-28] MEDS: FOLIC ACID 1 MG TABLET PO SCH (09:55)
--- NOTE | 2017-06-28 14:23 | PDOC PROGRESS REPORT ---
Subjective Progress Note for:: 06/28/17 Subjective:: Patient denied any chest pain. Intolerant of facility BiPAP machine usage. Not willing to bring own machine to hospital. Continue to experience coughing with sputum production but comparatively better. No reported fever or chills. Remain on IV Levaquin and Cefepime coverage. Cultures are no growth to date. No abdominal pain, nausea or vomiting. Physical Exam Vital Signs: Temp Pulse Resp BP Pulse Ox 97.9 F 77 18 126/55 H 96 06/28/17 04:47 06/28/17 08:05 06/28/17 08:05 06/28/17 04:47 06/28/17 08:05 Intake & Output 06/27/17 06/28/17 06/29/17 06:59 06:59 06:59 Intake Total 1358 3055 Output Total 1150 1325 Balance 208 1730 Weight 88.7 kg Physical Exam: General appearance: PRESENT: no acute distress Head exam: PRESENT: atraumatic, normocephalic Eye exam: ABSENT: conjunctiva pale, scleral icterus Mouth exam: PRESENT: moist Respiratory exam: PRESENT: crackles - scattered involving both lungs, decreased breath sounds - at lung bases Cardiovascular exam: PRESENT: RRR. ABSENT: diastolic murmur, rubs, systolic murmur Vascular exam: PRESENT: normal capillary refill. ABSENT: pallor GI/Abdominal exam: PRESENT: normal bowel sounds, soft. ABSENT: distended, guarding, mass, organomegaly, rebound, tenderness Extremities exam: ABSENT: pedal edema Musculoskeletal exam: PRESENT: deformity - due to joints involvement with arthritis Neurological exam: PRESENT: alert, awake, oriented to person, oriented to place , oriented to time, oriented to situation, CN II-XII grossly intact. ABSENT: motor sensory deficit Psychiatric exam: PRESENT: appropriate affect, normal mood. ABSENT: homicidal ideation, suicidal ideation Skin exam: PRESENT: dry, intact, warm. ABSENT: cyanosis, rash Results Laboratory Results: 06/27/17 04:17 06/27/17 04:17 Impressions: Chest X-Ray 06/26/17 12:31 IMPRESSION: Left lower lobe pneumonia cannot be excluded. Assessment & Plan - Diagnosis (1) Lobar pneumonia, unspecified organism Is this a current diagnosis for this admission?: Yes (2) COPD (chronic obstructive pulmonary disease) Qualifiers: Emphysema type: unspecified Is this a current diagnosis for this admission?: Yes (3) Rheumatoid arthritis Qualifiers: Laterality: unspecified laterality Is this a current diagnosis for this admission?: Yes (5) HTN (hypertension) Qualifiers: Hypertension type: unspecified Qualified Code(s): I10 - Essential (primary ) hypertension Is this a current diagnosis for this admission?: Yes (6) Chronic atrial fibrillation Is this a current diagnosis for this admission?: Yes Plan: Continue current anticoagulation therapy with Xarelto. - Time Time Spent with patient: 25-34 minutes Medications reviewed and adjusted accordingly: Yes Anticipated discharge: Home Within: Other - Inpatient Certification Based on my medical assessment, after consideration of the patient's comorbidities, presenting symptoms, or acuity I expect that the services needed warrant INPATIENT care.: Yes I certify that my determination is in accordance with my understanding of Medicare's requirements for reasonable and necessary INPATIENT services [42 CFR 412.3e].: Yes Medical Necessity: Need Close Monitoring Due to Risk of Patient Decompensation, Need For IV Fluids, Need For Continuous Telemetry Monitoring, Need for Nebulizer Therapy and Monitoring of Response, Need for IV Antibiotics, Risk of Complication if Not Cared For in Hospital Post Hospital Care: D/C Neurosurgical Nurse Documentation - Plan Summary Plan Summary: Continue Levofloxacin and Cefepime coverage. Obtain CBC with diff, BMP in AM. Continue all other current medication management.
[2017-06-28] MEDS: LEVOFLOXACIN 500 MG TABLET PO SCH (18:16)
[2017-06-28] MEDS: TAMSULOSIN HCL 0.4 MG CAP.SR.24H PO SCH (18:17)
[2017-06-28] MEDS: RIVAROXABAN 10 MG TABLET PO SCH (18:17)
[2017-06-28] MEDS: FLUTICASONE NASAL SPRAY 50 MCG/SPRY 120 SPRAY/16 GM NASL SCH (22:12)
[2017-06-28] MEDS: ATORVASTATIN CALCIUM 40 MG TABLET PO SCH (22:12)
[2017-06-29] MEDS: SOTALOL HCL 80 MG TABLET PO SCH ×2 (05:45→18:14)
[2017-06-29] MEDS: LANSOPRAZOLE 30 MG TAB.RAP.DR PO SCH (05:46)
[2017-06-29] MEDS: CEFEPIME 2 GM/D5W RTU 2 GM/50 ML RTUPB IV SCH ×2 (06:38→18:13)
[2017-06-29] MEDS: NORMAL SALINE 1000 ML 1,000 ML IV PRN (08:13)
[2017-06-29] MEDS: DILTIAZEM HCL 180 MG CAPSULE.CR PO SCH (09:23)
[2017-06-29] MEDS: FOLIC ACID 1 MG TABLET PO SCH (09:23)
[2017-06-29] MEDS: FUROSEMIDE 20 MG TABLET PO SCH (09:24)
[2017-06-29] MEDS: GUAIFENESIN 600 MG TABLET.SA PO SCH ×2 (09:24→21:24)
[2017-06-29] MEDS ORDERED: LEVOFLOXACIN 750 MG TABLET NG SCH (18:00)
--- NOTE | 2017-06-29 18:02 | PDOC PROGRESS REPORT ---
Subjective Progress Note for:: 06/29/17 Subjective:: Patient denied any chest pain. Breathing is getting better. No abdominal pain, nausea or vomiting. No fever or chills. Physical Exam Vital Signs: Temp Pulse Resp BP Pulse Ox 97.6 F 57 L 18 121/62 99 06/29/17 11:21 06/29/17 15:27 06/29/17 15:27 06/29/17 15:27 06/29/17 15:27 Intake & Output 06/28/17 06/29/17 06/30/17 06:59 06:59 06:59 Intake Total 3055 3997 Output Total 1325 3440 Balance 1730 557 Physical Exam: General appearance: PRESENT: no acute distress Head exam: PRESENT: atraumatic, normocephalic Eye exam: ABSENT: conjunctiva pale, scleral icterus Mouth exam: PRESENT: moist Respiratory exam: PRESENT: minimal scattered crackles - involving both lungs Cardiovascular exam: PRESENT: RRR. ABSENT: diastolic murmur, rubs, systolic murmur Vascular exam: PRESENT: normal capillary refill. ABSENT: pallor GI/Abdominal exam: PRESENT: normal bowel sounds, soft. ABSENT: distended, guarding, mass, organomegaly, rebound, tenderness Extremities exam: ABSENT: pedal edema Musculoskeletal exam: PRESENT: deformity - due to joints involvement with arthritis Neurological exam: PRESENT: alert, awake, oriented to person, oriented to place , oriented to time, oriented to situation, CN II-XII grossly intact. ABSENT: motor sensory deficit Psychiatric exam: PRESENT: appropriate affect, normal mood. ABSENT: homicidal ideation, suicidal ideation Skin exam: PRESENT: dry, intact, warm. ABSENT: cyanosis, rash Results Laboratory Results: 06/27/17 04:17 06/27/17 04:17 06/26/17 21:47 Sputum Gram Stain - Final 06/26/17 21:47 Sputum Sputum Culture - Final C.albicans/C.dubliniensis Normal Karen Impressions: Chest X-Ray 06/26/17 12:31 IMPRESSION: Left lower lobe pneumonia cannot be excluded. Assessment & Plan - Diagnosis (1) Lobar pneumonia, unspecified organism Is this a current diagnosis for this admission?: Yes (2) COPD (chronic obstructive pulmonary disease) Qualifiers: Emphysema type: unspecified Is this a current diagnosis for this admission?: Yes (3) Rheumatoid arthritis Qualifiers: Laterality: unspecified laterality Is this a current diagnosis for this admission?: Yes (5) HTN (hypertension) Qualifiers: Hypertension type: unspecified Qualified Code(s): I10 - Essential (primary ) hypertension Is this a current diagnosis for this admission?: Yes (6) Chronic atrial fibrillation Is this a current diagnosis for this admission?: Yes - Time Time Spent with patient: 25-34 minutes Medications reviewed and adjusted accordingly: Yes Anticipated discharge: Home Within: within 24 hours - Inpatient Certification Based on my medical assessment, after consideration of the patient's comorbidities, presenting symptoms, or acuity I expect that the services needed warrant INPATIENT care.: Yes I certify that my determination is in accordance with my understanding of Medicare's requirements for reasonable and necessary INPATIENT services [42 CFR 412.3e].: Yes Medical Necessity: Need Close Monitoring Due to Risk of Patient Decompensation, Need For IV Fluids, Need For Continuous Telemetry Monitoring, Need for Nebulizer Therapy and Monitoring of Response, Need for IV Antibiotics, Risk of Complication if Not Cared For in Hospital Post Hospital Care: D/C Automation Controls Expert Documentation - Plan Summary Plan Summary: Obtain CBC with diff in AM. Continue Levofloxacin and Cefepime coverage. If he continue to improve, consider discharge home tomorrow. I discussed care plan with patient and spouse at bedside.
[2017-06-29] MEDS: TAMSULOSIN HCL 0.4 MG CAP.SR.24H PO SCH (18:13)
[2017-06-29] MEDS: RIVAROXABAN 10 MG TABLET PO SCH (18:13)
[2017-06-29] MEDS: LEVOFLOXACIN 500 MG TABLET PO SCH (18:13)
[2017-06-29] MEDS: FLUTICASONE NASAL SPRAY 50 MCG/SPRY 120 SPRAY/16 GM NASL SCH (21:24)
[2017-06-29] MEDS: ATORVASTATIN CALCIUM 40 MG TABLET PO SCH (21:24)
[2017-06-30 05:00] LABS: ABSOLUTE EOSINOPHILS # (AUTO) 0.2 10^3/uL (0.0-0.6); ABSOLUTE LYMPHOCYTES (AUTO) 1.8 10^3/uL (0.5-4.7); ABSOLUTE MONOCYTES (AUTO) 0.9 10^3/uL (0.1-1.4); ABSOLUTE NEUT (AUTO) 5.2 10^3/uL (1.7-8.2); BASOPHILS % (AUTO) 0.3 % (0-2); EOSINOPHILS % (AUTO) 2.8 % (0-6); HEMATOCRIT 32.9 % (37.9-51.0); HEMOGLOBIN 11.6 g/dL (13.5-17.0); HGB HCT DIFFERENCE 1.9; LYMPHOCYTES % (AUTO) 21.9 % (13-45); MEAN CORPUSCULAR HEMOGLOBIN 31.6 pg (27.0-33.4); MEAN CORPUSCULAR HGB CONC 35.1 g/dL (32.0-36.0); MEAN CORPUSCULAR VOLUME 90 fl (80-97); RED BLOOD COUNT 3.66 10^6/uL (4.35-5.55); RED CELL DISTRIBUTION WIDTH 15.3 % (11.5-14.0); WHITE BLOOD COUNT 8.1 10^3/uL (4.0-10.5)
[2017-06-30] MEDS: CEFEPIME 2 GM/D5W RTU 2 GM/50 ML RTUPB IV SCH (06:20)
[2017-06-30] MEDS: NORMAL SALINE 1000 ML 1,000 ML IV PRN ×2 (06:20→14:16)
[2017-06-30] MEDS: SOTALOL HCL 80 MG TABLET PO SCH (06:20)
[2017-06-30] MEDS: LANSOPRAZOLE 30 MG TAB.RAP.DR PO SCH (06:25)
[2017-06-30] MEDS: DILTIAZEM HCL 180 MG CAPSULE.CR PO SCH (09:04)
[2017-06-30] MEDS: FOLIC ACID 1 MG TABLET PO SCH (09:04)
[2017-06-30] MEDS: GUAIFENESIN 600 MG TABLET.SA PO SCH (09:04)
[2017-06-30 15:41] VITALS: BP 105/52
--- NOTE | 2017-06-30 15:44 | PDOC DISCHARGE SUMMARY ---
General - Admit/Disc Date/PCP Admission Date/Primary Care Provider: 06/26/17 15:50 SAMUEL AC MD Discharge Date: 06/30/17 - Discharge Diagnosis (1) Lobar pneumonia, unspecified organism Is this a current diagnosis for this admission?: Yes (2) COPD (chronic obstructive pulmonary disease) Is this a current diagnosis for this admission?: Yes (3) Rheumatoid arthritis Is this a current diagnosis for this admission?: Yes (5) HTN (hypertension) Is this a current diagnosis for this admission?: Yes (6) Chronic atrial fibrillation Is this a current diagnosis for this admission?: Yes - Additional Information Resuscitation Status: Full Code Discharge Diet: Cardiac Discharge Activity: Activity As Tolerated, Slowly Increase Activity Home Medications: Acetylcysteine [Mucomist 20% Soln 800 mg/4 mL] 1 ml NEB RTBID 06/26/17 Aclidinium [place] [Tudorza Pressair] 1 puff IH DAILY 06/26/17 Albuterol Sulfate [Proair HFA] 2 puff IH Q4HP PRN 06/26/17 Aspirin [Aspirin EC] 81 mg PO DAILY 06/26/17 Benzonatate [Tessalon Perles 100 mg Capsule] 200 mg PO DAILYP PRN 06/26/17 Codeine Phosphate/Guaifenesin [Cheratussin AC Syrup] 5 ml PO DAILYP PRN Diltiazem HCl [Cartia Xt] 180 mg PO DAILY 06/26/17 Dutasteride [Avodart] 0.5 mg PO DAILY 06/26/17 Fluticasone Propionate [Flonase Nasal [place] 50 Mcg/[place] 16 gm] 2 sprays NASL QHS 06/26/17 Fluticasone/Vilanterol [Breo Ellipta 100-25 Mcg INH] 1 each IH DAILY 06/26/17 Folic Acid [Folvite 1 mg Tablet] 1 mg PO DAILY 06/26/17 Furosemide [Lasix 40 mg Tablet] 20 mg PO Q2D 06/26/17 Ipratropium/Albuterol Sulfate [Duoneb 3 ml Ampul] 1 ml NEB RTBID 06/26/17 Methotrexate Sodium [Methotrexate] 20 mg PO [id number] 06/26/17 Nitroglycerin [Nitrostat 0.4 mg (1/150 Gr) Tabs 25/Bottle] 1 tab SL Q5MP PRN Rivaroxaban [Xarelto] 20 mg PO QPM 06/26/17 Rosuvastatin Calcium [Crestor 20 mg Tablet] 20 mg PO QPM 06/26/17 Sotalol HCl [Sotalol] 80 mg PO BID 06/26/17 Tamsulosin HCl [Flomax 0.4 mg Cap.sr] 0.4 mg PO QPM 06/26/17 Vit C/E/Zn/Coppr/Lutein/Zeaxan [Preservision Areds 2 Softgel] 1 each PO DAILY Levofloxacin [Levaquin 500 mg Tablet] 500 mg PO QPM #7 tablet 06/30/17 History of Present Illness History of Present Illness: KEIRY IVERSON JR is a 81 year old male known to my practice who presented to the ED with complain of weakness and fatigue that started since yesterday while he was at [facility]. Patient reported that he administered his biweekly Methotrexate the day before onset of his symptoms. He denied any definite fever or chills. Admitted to productive coughing which is related to his chronic interstitial lung disease. Denied any significant change in the color except intermittent greenish yellow ting. No brownish or bloody component. He denied any significant chest pain. Patient reported nausea but no vomiting. No abdominal pain. He denied any urinary symptoms to suggest any ongoing infection. Morbidities include CAD s/p stent angioplasty, [place], Hypertension, Chronic Interstitial Lung Disease, COPD, BPH with outflow symptoms, Rheumatoid arthritis, and Depression. Hospital Course Hospital Course: Patient was admitted for lobar pneumonia and COPD exacerbated. He did respond to management including antibiotic and bronchodilators therapy. His presenting symptoms including weakness, coughing with sputum production did improve. Patient's leukocytosis did resolved. Her remain afebrile. No chest pain, nausea , vomiting or abdominal pain. Blood culture remain no growth to date. Sputum culture did grew Elizabeth species with normal elijah which is most likely colonization due to inhaled steroid usage. Patient is agreeable to discharge home to day on oral antibiotic therapy. He will follow up in the office as instructed upon discharge. Physical Exam Vital Signs: Temp Pulse Resp BP Pulse Ox 97.6 F 56 L 18 106/53 L 98 06/30/17 11:13 06/30/17 14:00 06/30/17 11:13 06/30/17 11:13 06/30/17 11:13 Intake & Output 06/29/17 06/30/17 07/01/17 06:59 06:59 06:59 Intake Total 3997 3795 Output Total 3440 2850 Balance 557 945 Weight 94.4 kg Physical Exam: General appearance: PRESENT: no acute distress Head exam: PRESENT: atraumatic, normocephalic Eye exam: ABSENT: conjunctiva pale, scleral icterus Mouth exam: PRESENT: moist Respiratory exam: PRESENT: minimal scattered crackles - involving both lungs Cardiovascular exam: PRESENT: RRR. ABSENT: diastolic murmur, rubs, systolic murmur Vascular exam: PRESENT: normal capillary refill. ABSENT: pallor GI/Abdominal exam: PRESENT: normal bowel sounds, soft. ABSENT: distended, guarding, mass, organomegaly, rebound, tenderness Extremities exam: ABSENT: pedal edema Musculoskeletal exam: PRESENT: deformity - due to joints involvement with arthritis Neurological exam: PRESENT: alert, awake, oriented to person, oriented to place , oriented to time, oriented to situation, CN II-XII grossly intact. ABSENT: motor sensory deficit Psychiatric exam: PRESENT: appropriate affect, normal mood. ABSENT: homicidal ideation, suicidal ideation Skin exam: PRESENT: dry, intact, warm. ABSENT: cyanosis, rash Results Laboratory Results: 06/30/17 04:06 06/27/17 04:17 06/30/17 04:06 WBC 8.1 RBC 3.66 L Hgb 11.6 L Hct 32.9 L MCV 90 MCH 31.6 MCHC 35.1 RDW 15.3 H Plt Count 269 Seg Neutrophils % 64.0 Lymphocytes % 21.9 Monocytes % 11.0 Eosinophils % 2.8 Basophils % 0.3 Absolute Neutrophils 5.2 Absolute Lymphocytes 1.8 Absolute Monocytes 0.9 Absolute Eosinophils 0.2 Absolute Basophils 0.0 06/26/17 21:47 Sputum Gram Stain - Final 06/26/17 21:47 Sputum Sputum Culture - Final C.albicans/C.dubliniensis Normal Elijah Impressions: Chest X-Ray 06/26/17 12:31 IMPRESSION: Left lower lobe pneumonia cannot be excluded. Qualifiers PATEINT BEING DISCHARGED WITH ANY OF THE FOLLOWING DIAGNOSIS?: No Plan Discharge Plan: D/C home today. Follow up in the office as instructed upon discharge. Time Spent: Less than 30 Minutes
== END 2017-06-30 16:02 | disposition home or self-care (01) | DRG 190 ==
LOC: ER 11:54 → UNDOADMIN 15:18 → EH 15:18 → 5 15:50 → EH 16:47
PROVIDERS: ADMIT Internal Medicine Geriatric Medicine; ATTEND Internal Medicine Geriatric Medicine
PROC: 5A09457 Assistance with Respiratory Ventilation, 24-96 Consecutive Hours, Continuous Positive Airway Pressure (ICD-10-PCS; principal; 2017-06-27)
DX: J44.0 Chronic obstructive pulmonary disease with (acute) lower respiratory infection (principal); J18.9 Pneumonia, unspecified organism; I25.10 Atherosclerotic heart disease of native coronary artery without angina pectoris; E78.2 Mixed hyperlipidemia; J44.1 Chronic obstructive pulmonary disease with (acute) exacerbation; I10 Essential (primary) hypertension; I48.2 Chronic atrial fibrillation; E11.9 Type 2 diabetes mellitus without complications; M06.9 Rheumatoid arthritis, unspecified; F32.9 Major depressive disorder, single episode, unspecified; Z95.5 Presence of coronary angioplasty implant and graft; Z90.49 Acquired absence of other specified parts of digestive tract; Z91.011 Allergy to milk products; Z88.8 Allergy status to other drugs, medicaments and biological substances; Z79.02 Long term (current) use of antithrombotics/antiplatelets; Z85.828 Personal history of other malignant neoplasm of skin; Z79.82 Long term (current) use of aspirin; Z79.51 Long term (current) use of inhaled steroids
CPT/HCPCS: 36415; 71020; 80053; 81001; 83735; 84484; 85025; 85610; 85730; 87040; 87070; 87205; 93005; 93010; 94799; 99285; J0692; J1956; J3490; J7030

== ENCOUNTER → 2017-07-13 | Outpatient (CLI) | payer MEDICARE ==
[2017-07-13 08:14] LABS: APPEARANCE,URINE CLEAR; BILIRUBIN,URINE NEGATIVE (NEGATIVE); GLUCOSE, URINE NEGATIVE (NEGATIVE); KETONES,URINE NEGATIVE (NEGATIVE); LEUKOCYTE ESTERASE,URINE NEGATIVE (NEGATIVE); NITRITE,URINE NEGATIVE (NEGATIVE); PROTEIN,URINE NEGATIVE (NEGATIVE); URINE SPECIFIC GRAVITY 1.004; UROBILINOGEN,URINE NEGATIVE mg/dL (<2.0)
[2017-07-13 08:25] LABS: ABSOLUTE EOSINOPHILS # (AUTO) 0.9 10^3/uL (0.0-0.6); ABSOLUTE LYMPHOCYTES (AUTO) 1.7 10^3/uL (0.5-4.7); ABSOLUTE MONOCYTES (AUTO) 0.8 10^3/uL (0.1-1.4); ABSOLUTE NEUT (AUTO) 6.2 10^3/uL (1.7-8.2); BASOPHILS % (AUTO) 0.4 % (0-2); HEMATOCRIT 34.9 % (37.9-51.0); HEMOGLOBIN 12.2 g/dL (13.5-17.0); HGB HCT DIFFERENCE 1.7; LYMPHOCYTES % (AUTO) 17.2 % (13-45); MEAN CORPUSCULAR HGB CONC 34.8 g/dL (32.0-36.0); MEAN CORPUSCULAR VOLUME 89 fl (80-97); MONOCYTES % (AUTO) 8.8 % (3-13); RED BLOOD COUNT 3.91 10^6/uL (4.35-5.55); SEGMENTED NEUTROPHILS % (AUTO) 64.6 % (42-78); WHITE BLOOD COUNT 9.6 10^3/uL (4.0-10.5)
[2017-07-13 08:53] LABS: ALANINE AMINOTRANSFERASE 21 U/L (21-72); ALBUMIN 3.7 g/dL (3.5-5.0); ALKALINE PHOSPHATASE 82 U/L (38-126); ANION GAP 9 (5-19); ASPARTATE AMINO TRANSFERASE 17 U/L (17-59); BILIRUBIN,DIRECT 0.4 mg/dL (0.0-0.4); BILIRUBIN,TOTAL 0.9 mg/dL (0.2-1.3); BLOOD UREA NITROGEN 13 mg/dL (7-20); CARBON DIOXIDE 27 mmol/L (22-30); CHLORIDE 101 mmol/L (98-107); CREATININE RESULT 0.76 mg/dL (0.52-1.25); GLUCOSE 119 mg/dL (75-110); MAGNESIUM 2.2 mg/dL (1.6-2.3); POTASSIUM 4.2 mmol/L (3.6-5.0); SODIUM 137.3 mmol/L (137-145); TOTAL PROTEIN 6.5 g/dL (6.3-8.2)
== END ==
LOC: OD 07:26
PROVIDERS: ATTEND Internal Medicine Cardiovascular Disease
DX: I48.0 Paroxysmal atrial fibrillation (principal); Z79.899 Other long term (current) drug therapy; Z79.01 Long term (current) use of anticoagulants
CPT/HCPCS: 36415; 80048; 80076; 81001; 82272; 83735; 85025; 85730

== ENCOUNTER → 2017-10-17 | Outpatient (CLI) | payer MEDICARE ==
[2017-10-17 09:18] LABS: ABSOLUTE EOSINOPHILS # (AUTO) 0.1 10^3/uL (0.0-0.6); ABSOLUTE LYMPHOCYTES (AUTO) 1.9 10^3/uL (0.5-4.7); ABSOLUTE MONOCYTES (AUTO) 0.8 10^3/uL (0.1-1.4); ABSOLUTE NEUT (AUTO) 4.4 10^3/uL (1.7-8.2); BASOPHILS % (AUTO) 0.3 % (0-2); EOSINOPHILS % (AUTO) 1.8 % (0-6); HEMATOCRIT 36.9 % (37.9-51.0); HEMOGLOBIN 12.2 g/dL (13.5-17.0); LYMPHOCYTES % (AUTO) 25.8 % (13-45); MEAN CORPUSCULAR HEMOGLOBIN 29.8 pg (27.0-33.4); MEAN CORPUSCULAR VOLUME 90 fl (80-97); MONOCYTES % (AUTO) 10.9 % (3-13); PLATELET COUNT 267 10^3/uL (150-450); RED BLOOD COUNT 4.09 10^6/uL (4.35-5.55); RED CELL DISTRIBUTION WIDTH 16.2 % (11.5-14.0); SEGMENTED NEUTROPHILS % (AUTO) 61.2 % (42-78); TOTAL CELLS COUNTED % (AUTO) 100 %; WHITE BLOOD COUNT 7.2 10^3/uL (4.0-10.5)
[2017-10-17 09:21] LABS: APPEARANCE,URINE CLEAR; BILIRUBIN,URINE NEGATIVE (NEGATIVE); COLOR,URINE YELLOW; GLUCOSE, URINE NEGATIVE (NEGATIVE); KETONES,URINE NEGATIVE (NEGATIVE); LEUKOCYTE ESTERASE,URINE NEGATIVE (NEGATIVE); NITRITE,URINE NEGATIVE (NEGATIVE); PROTEIN,URINE NEGATIVE (NEGATIVE); URINE SPECIFIC GRAVITY 1.023; UROBILINOGEN,URINE NEGATIVE mg/dL (<2.0)
[2017-10-17 09:46] LABS: ALANINE AMINOTRANSFERASE 28 U/L (21-72); ALBUMIN 4.2 g/dL (3.5-5.0); ALKALINE PHOSPHATASE 72 U/L (38-126); ANION GAP 12 (5-19); ASPARTATE AMINO TRANSFERASE 26 U/L (17-59); BILIRUBIN,DIRECT 0.2 mg/dL (0.0-0.4); BILIRUBIN,TOTAL 0.7 mg/dL (0.2-1.3); BLOOD UREA NITROGEN 17 mg/dL (7-20); CALCIUM 9.4 mg/dL (8.4-10.2); CARBON DIOXIDE 27 mmol/L (22-30); CHLORIDE 103 mmol/L (98-107); GLUCOSE 119 mg/dL (75-110); MAGNESIUM 2.1 mg/dL (1.6-2.3); POTASSIUM 4.3 mmol/L (3.6-5.0); SODIUM 142.4 mmol/L (137-145)
== END ==
LOC: OD 08:26
PROVIDERS: ATTEND Internal Medicine Cardiovascular Disease
DX: I48.0 Paroxysmal atrial fibrillation (principal); Z79.01 Long term (current) use of anticoagulants; Z79.899 Other long term (current) drug therapy
CPT/HCPCS: 36415; 80048; 80076; 81001; 82272; 83735; 85025; 85730

== ENCOUNTER → 2017-12-12 | Outpatient (CLI) | payer MEDICARE ==
[2017-12-12 09:56] LABS: ABSOLUTE EOSINOPHILS # (AUTO) 0.1 10^3/uL (0.0-0.6); ABSOLUTE LYMPHOCYTES (AUTO) 1.8 10^3/uL (0.5-4.7); ABSOLUTE MONOCYTES (AUTO) 0.8 10^3/uL (0.1-1.4); ABSOLUTE NEUT (AUTO) 5.4 10^3/uL (1.7-8.2); BASOPHILS % (AUTO) 0.2 % (0-2); EOSINOPHILS % (AUTO) 1.3 % (0-6); HEMATOCRIT 38.1 % (37.9-51.0); HEMOGLOBIN 12.8 g/dL (13.5-17.0); LYMPHOCYTES % (AUTO) 21.9 % (13-45); MEAN CORPUSCULAR HEMOGLOBIN 30.6 pg (27.0-33.4); MEAN CORPUSCULAR HGB CONC 33.7 g/dL (32.0-36.0); MEAN CORPUSCULAR VOLUME 91 fl (80-97); MONOCYTES % (AUTO) 9.5 % (3-13); PLATELET COUNT 293 10^3/uL (150-450); RED CELL DISTRIBUTION WIDTH 15.4 % (11.5-14.0); SEGMENTED NEUTROPHILS % (AUTO) 67.1 % (42-78); TOTAL CELLS COUNTED % (AUTO) 100 %; WHITE BLOOD COUNT 8.1 10^3/uL (4.0-10.5)
[2017-12-12 10:02] LABS: APPEARANCE,URINE CLEAR; BILIRUBIN,URINE NEGATIVE (NEGATIVE); COLOR,URINE STRAW; GLUCOSE, URINE NEGATIVE (NEGATIVE); KETONES,URINE NEGATIVE (NEGATIVE); LEUKOCYTE ESTERASE,URINE NEGATIVE (NEGATIVE); NITRITE,URINE NEGATIVE (NEGATIVE); PROTEIN,URINE NEGATIVE (NEGATIVE); URINE SPECIFIC GRAVITY 1.008; UROBILINOGEN,URINE NEGATIVE mg/dL (<2.0)
[2017-12-12 10:26] LABS: ALANINE AMINOTRANSFERASE 23 U/L (21-72); ALBUMIN 4.1 g/dL (3.5-5.0); ALKALINE PHOSPHATASE 68 U/L (38-126); ANION GAP 12 (5-19); ASPARTATE AMINO TRANSFERASE 18 U/L (17-59); BILIRUBIN,DIRECT 0.4 mg/dL (0.0-0.4); BILIRUBIN,TOTAL 0.8 mg/dL (0.2-1.3); BLOOD UREA NITROGEN 12 mg/dL (7-20); CALCIUM 9.3 mg/dL (8.4-10.2); CARBON DIOXIDE 28 mmol/L (22-30); CHLORIDE 101 mmol/L (98-107); GLUCOSE 120 mg/dL (75-110); POTASSIUM 4.8 mmol/L (3.6-5.0); SODIUM 140.7 mmol/L (137-145); TOTAL PROTEIN 7.2 g/dL (6.3-8.2)
== END ==
LOC: OD 08:58
PROVIDERS: ATTEND Internal Medicine Cardiovascular Disease
DX: I48.0 Paroxysmal atrial fibrillation (principal); Z79.899 Other long term (current) drug therapy; Z79.01 Long term (current) use of anticoagulants
CPT/HCPCS: 36415; 80048; 80076; 81001; 82272; 83735; 85025; 85730

== ENCOUNTER → 2018-03-26 | Outpatient (CLI) | payer MEDICARE ==
[2018-03-26 10:05] LABS: ABSOLUTE EOSINOPHILS # (AUTO) 0.1 10^3/uL (0.0-0.6); ABSOLUTE LYMPHOCYTES (AUTO) 1.8 10^3/uL (0.5-4.7); ABSOLUTE MONOCYTES (AUTO) 0.7 10^3/uL (0.1-1.4); ABSOLUTE NEUT (AUTO) 4.4 10^3/uL (1.7-8.2); BASOPHILS % (AUTO) 0.2 % (0-2); EOSINOPHILS % (AUTO) 1.9 % (0-6); HEMOGLOBIN 12.4 g/dL (13.5-17.0); MEAN CORPUSCULAR HEMOGLOBIN 31.6 pg (27.0-33.4); MEAN CORPUSCULAR HGB CONC 34.5 g/dL (32.0-36.0); MEAN CORPUSCULAR VOLUME 91 fl (80-97); MONOCYTES % (AUTO) 9.7 % (3-13); PLATELET COUNT 264 10^3/uL (150-450); RED BLOOD COUNT 3.94 10^6/uL (4.35-5.55); RED CELL DISTRIBUTION WIDTH 14.9 % (11.5-14.0); SEGMENTED NEUTROPHILS % (AUTO) 62.2 % (42-78); TOTAL CELLS COUNTED % (AUTO) 100 %; WHITE BLOOD COUNT 7.1 10^3/uL (4.0-10.5)
[2018-03-26 10:14] LABS: APPEARANCE,URINE CLEAR; BILIRUBIN,URINE NEGATIVE (NEGATIVE); COLOR,URINE YELLOW; GLUCOSE, URINE NEGATIVE (NEGATIVE); KETONES,URINE NEGATIVE (NEGATIVE); LEUKOCYTE ESTERASE,URINE NEGATIVE (NEGATIVE); NITRITE,URINE NEGATIVE (NEGATIVE); PROTEIN,URINE NEGATIVE (NEGATIVE); URINE SPECIFIC GRAVITY 1.012; UROBILINOGEN,URINE NEGATIVE mg/dL (<2.0)
[2018-03-26 10:40] LABS: CHOLESTEROL 108.33 mg/dL (0-200); TRIGLYCERIDES 115 mg/dL (<150)
[2018-03-26 10:44] LABS: ALANINE AMINOTRANSFERASE 19 U/L (21-72); ALBUMIN 3.9 g/dL (3.5-5.0); ALKALINE PHOSPHATASE 68 U/L (38-126); ANION GAP 11 (5-19); ASPARTATE AMINO TRANSFERASE 18 U/L (17-59); BILIRUBIN,DIRECT 0.3 mg/dL (0.0-0.4); BILIRUBIN,TOTAL 0.6 mg/dL (0.2-1.3); BLOOD UREA NITROGEN 13 mg/dL (7-20); CALCIUM 9.2 mg/dL (8.4-10.2); CARBON DIOXIDE 30 mmol/L (22-30); CHLORIDE 102 mmol/L (98-107); GLUCOSE 113 mg/dL (75-110); POTASSIUM 4.9 mmol/L (3.6-5.0); SODIUM 143.2 mmol/L (137-145); TOTAL PROTEIN 6.9 g/dL (6.3-8.2)
[2018-03-26 10:53] LABS: DIRECT LDL 55 mg/dL (<100)
== END ==
LOC: OD 08:43
PROVIDERS: ATTEND Internal Medicine Cardiovascular Disease
DX: E78.00 Pure hypercholesterolemia, unspecified (principal); I48.0 Paroxysmal atrial fibrillation; Z79.01 Long term (current) use of anticoagulants; Z79.899 Other long term (current) drug therapy
CPT/HCPCS: 36415; 80048; 80061; 80076; 81001; 82272; 83735; 85025; 85730

== ENCOUNTER → 2018-07-19 | Outpatient (CLI) | payer MEDICARE ==
[2018-07-19 09:10] LABS: ABSOLUTE EOSINOPHILS # (AUTO) 0.1 10^3/uL (0.0-0.6); ABSOLUTE LYMPHOCYTES (AUTO) 1.9 10^3/uL (0.5-4.7); ABSOLUTE MONOCYTES (AUTO) 0.8 10^3/uL (0.1-1.4); ABSOLUTE NEUT (AUTO) 4.4 10^3/uL (1.7-8.2); BASOPHILS % (AUTO) 0.3 % (0-2); EOSINOPHILS % (AUTO) 1.7 % (0-6); HEMATOCRIT 36.8 % (37.9-51.0); HEMOGLOBIN 12.7 g/dL (13.5-17.0); LYMPHOCYTES % (AUTO) 26.4 % (13-45); MEAN CORPUSCULAR HEMOGLOBIN 31.6 pg (27.0-33.4); MEAN CORPUSCULAR HGB CONC 34.6 g/dL (32.0-36.0); MEAN CORPUSCULAR VOLUME 91 fl (80-97); PLATELET COUNT 291 10^3/uL (150-450); RED BLOOD COUNT 4.04 10^6/uL (4.35-5.55); RED CELL DISTRIBUTION WIDTH 14.9 % (11.5-14.0); SEGMENTED NEUTROPHILS % (AUTO) 60.6 % (42-78); TOTAL CELLS COUNTED % (AUTO) 100 %; WHITE BLOOD COUNT 7.2 10^3/uL (4.0-10.5)
[2018-07-19 09:34] LABS: ALANINE AMINOTRANSFERASE 22 U/L (21-72); ALKALINE PHOSPHATASE 67 U/L (38-126); ANION GAP 9 (5-19); ASPARTATE AMINO TRANSFERASE 21 U/L (17-59); BILIRUBIN,DIRECT 0.1 mg/dL (0.0-0.4); BILIRUBIN,TOTAL 0.9 mg/dL (0.2-1.3); BLOOD UREA NITROGEN 12 mg/dL (7-20); CARBON DIOXIDE 29 mmol/L (22-30); CHLORIDE 101 mmol/L (98-107); GLUCOSE 122 mg/dL (75-110); POTASSIUM 4.6 mmol/L (3.6-5.0); SODIUM 138.9 mmol/L (137-145); TOTAL PROTEIN 7.2 g/dL (6.3-8.2)
[2018-07-19 09:51] LABS: APPEARANCE,URINE CLEAR; BILIRUBIN,URINE NEGATIVE (NEGATIVE); COLOR,URINE YELLOW; GLUCOSE, URINE NEGATIVE (NEGATIVE); KETONES,URINE NEGATIVE (NEGATIVE); LEUKOCYTE ESTERASE,URINE NEGATIVE (NEGATIVE); NITRITE,URINE NEGATIVE (NEGATIVE); PROTEIN,URINE NEGATIVE (NEGATIVE); URINE SPECIFIC GRAVITY 1.013; UROBILINOGEN,URINE NEGATIVE mg/dL (<2.0)
== END ==
LOC: OD 08:23
PROVIDERS: ATTEND Internal Medicine Cardiovascular Disease
DX: I48.0 Paroxysmal atrial fibrillation (principal); Z79.01 Long term (current) use of anticoagulants; Z79.899 Other long term (current) drug therapy
CPT/HCPCS: 36415; 80048; 80076; 81001; 82272; 83735; 85025; 85730

== ENCOUNTER → 2018-08-28 | Outpatient (CLI) | payer MEDICARE ==
--- NOTE | 2018-08-28 12:53 | RADIOLOGY REPORT (SQ) ---
EXAM DESCRIPTION: CT CHEST WITHOUT COMPLETED DATE/TIME: 08/28/2018 12:35 pm REASON FOR STUDY: BRONCHIECTASIS J47.9 BRONCHIECTASIS, UNCOMPLICATED COMPARISON: 03/26/2012 CT chest TECHNIQUE: CT scan performed of the chest without intravenous contrast. Images reviewed with lung, soft tissue and bone windows. Reconstructed coronal and sagittal MPR images reviewed. All images st ored on PACS. All CT scanners at this facility use dose modulation, iterative reconstruction, and/or weight based d osing when appropriate to reduce radiation dose to as low as reasonably achievable (ALARA). [facility]: Dose Right [facility]: CareDose [facility]: Dose Right [facility]: Teradose 4D [facility]: AMERICAN PET RESORT RADIATION DOSE: CT Rad equipment meets quality standard of care and radiation dose reduction techniq ues were employed. CTDIvol: 10.4 mGy. DLP: 409 mGy-cm. mGy. LIMITATIONS: No technical limitations. FINDINGS: LUNGS AND PLEURA: Stable biapical pleuroparenchymal scarring. Scattered areas of lung par enchymal scarring and bronchiectasis along the medial segment right middle lobe and lingula. There i s also parenchymal scarring and bronchiectasis just above the left hemidiaphragm. All of these findi ngs are similar compared to 2011. No acute infiltrates. No pleural effusion. No pneumothorax. No worrisome pulmonary nodules. Airwa ys are patent. HILAR AND MEDIASTINAL STRUCTURES: No identified masses or abnormal nodes. No obvious aneurysm. HEART AND VASCULAR STRUCTURES: No aneurysm. No pericardial effusion. Moderate coronary artery calci fication. UPPER ABDOMEN: Radiopaque stones or debris in the gallbladder. No gallbladder wall thickening. THYROID AND OTHER SOFT TISSUES: No masses. No adenopathy. BONES: No significant finding. HARDWARE: None in the chest. OTHER: No other significant findings. IMPRESSION: No change in appearance of the chest compared to 03/26/2012. TECHNICAL DOCUMENTATION: JOB ID: [id number] Quality ID # [id number]: Final reports with documentation of one or more dose reduction techniques (e.g., Au tomated exposure control, adjustment of the mA and/or kV according to patient size, use of iterative reconstruction technique) 2010 [employer]- All Rights Reserved Reading location - IP/workstation name: [email or web address] [email or web address] BEDS AT THE [facility]
== END ==
LOC: RAD 12:23
PROVIDERS: ATTEND Internal Medicine Pulmonary Disease
DX: J47.9 Bronchiectasis, uncomplicated (principal)
CPT/HCPCS: 71250

== ENCOUNTER → 2018-09-11 | Outpatient (CLI) | payer MEDICARE ==
[~2018-09-11] MED LIST: AMINOPHYLLINE INJ/PF 250 MG/10 ML SDV IV ONE; REGADENOSON INJ 0.4 MG/5 ML DISP.SYRIN IV ONE
--- NOTE | 2018-09-13 07:54 | RADIOLOGY REPORT ---
STRESS TEST REPORT PATIENT NAME: KEIRY IVERSON ROOM#: DATE OF SERVICE: 09/11/2018 AGE: 83Y ORDER#: [id number] REFERRING MD: SALVADOR YAO M.D. INDICATION: Assessment of coronary artery disease, patient has paroxysmal atrial fibrillation, hypertension and hypercholesterolemia and age 83. PROCEDURE PERFORMED: Rest/stress single-isotope Cardiolite SPECT imaging with IV Lexiscan stress and gated SPECT imaging. REPORT The patient received IV Lexiscan 0.4 mg infused over 10 seconds and flushed. The resting heart rate was 58 BPM and increased to 86 BPM at end infusion. The resting blood pressure was 118/70 and this decreased down to 79/51 after infusion, subsequently recovered back to 103/61 prior to the infusion of 250 mL normal saline and 100 mg IV was given. The patient had symptoms of chest pressure, shortness of breath, flushing, and hypotension. Resting 12-lead EKG showed NSR 58 BPM, first-degree AVB, PVC, CRBBB. At end infusion, EKG showed NSR 86, first-degree AVB, CRBBB, no abnormal ST changes aside from the CRBBB. Myocardial perfusion imaging was performed at rest 60 minutes following the injection of 14.85 mCi of Cardiolite. Ten seconds after the IV Lexiscan injection, the patient was injected with 42.8 mCi of Cardiolite and flushed. IV aminophylline was given 3 minutes post IV Lexiscan and IV infusion of 250 mL normal saline was started approximately 5 minutes post Lexiscan. Gated post stress tomographic imaging was performed 60 minutes after stress. SUMMARY OF FINDINGS/IMPRESSION: The overall quality of the study is fair. There are motion artifacts. The left ventricular cavity is noted to be slightly more dilated on the stress and the rest study, but the t.i.d. ratio was calculated at 1.07 and this is not abnormal. The SPECT images showed a moderate-sized area of reversible ischemia in the basal anterior wall and the basal anterolateral wall. There is a moderate-sized inferior wall fixed perfusion defect with katharina-infarctional reversible ischemia in the inferior wall. Gated SPECT imaging showed severe reduced motion contraction in the inferior wall , apex and the basal anterior wall. The left ventricular ejection fraction was calculated to be 50% (low normal). IMPRESSION: MYOCARDIAL PERFUSION IMAGING IS VERY ABNORMAL. THERE IS A MODERATE-SIZED FIXED INFERIOR WALL PERFUSION DEFECT WITH KATHARINA- INFARCTIONAL ISCHEMIA. THERE IS A MODERATE-SIZED REVERSIBLE ISCHEMIA IN THE BASAL ANTERIOR WALL AND THE BASAL ANTEROLATERAL WALL. OVERALL, VENTRICULAR SYSTOLIC FUNCTION WAS LOW NORMAL AT 50% AND REGIONAL WALL MOTION ABNORMALITIES WERE SEEN SEVERE REDUCED MOTION/ CONTRACTION IN THE INFERIOR WALL, THE APEX AND THE BASAL ANTERIOR WALL. NO PRIOR STUDIES/IMAGES FOR COMPARISON. A STRESS TEST REPORT FROM 2016 SHOWED NO REVERSIBLE ISCHEMIA, NO FIXED EFFUSION DEFECT. INTERPRETING PHYSICIAN: SALVADOR YAO M.D. /: [id number] TT: 0948 ID: [id number] /: [id number] TD: 0911 JOB: [id number] cc:SALVADOR YAO M.D. > MTDD
== END ==
LOC: RAD 06:31
PROVIDERS: ATTEND Internal Medicine Cardiovascular Disease
DX: I25.10 Atherosclerotic heart disease of native coronary artery without angina pectoris (principal)
CPT/HCPCS: 93017; 78452; A9500; J2785; J0280; Q9969

== ENCOUNTER → 2018-10-23 | Outpatient (CLI) | payer MEDICARE ==
[2018-10-23 09:19] LABS: HEMATOCRIT 38.2 % (37.9-51.0); HEMOGLOBIN 12.9 g/dL (13.5-17.0); MEAN CORPUSCULAR HGB CONC 33.7 g/dL (32.0-36.0); MEAN CORPUSCULAR VOLUME 92 fl (80-97); PLATELET COUNT 267 10^3/uL (150-450); RED BLOOD COUNT 4.16 10^6/uL (4.35-5.55); RED CELL DISTRIBUTION WIDTH 14.8 % (11.5-14.0); WHITE BLOOD COUNT 6.1 10^3/uL (4.0-10.5)
[2018-10-23 09:25] LABS: APPEARANCE,URINE CLEAR; BILIRUBIN,URINE NEGATIVE (NEGATIVE); COLOR,URINE YELLOW; GLUCOSE, URINE NEGATIVE (NEGATIVE); KETONES,URINE NEGATIVE (NEGATIVE); LEUKOCYTE ESTERASE,URINE NEGATIVE (NEGATIVE); NITRITE,URINE NEGATIVE (NEGATIVE); PROTEIN,URINE NEGATIVE (NEGATIVE); URINE SPECIFIC GRAVITY 1.014; UROBILINOGEN,URINE NEGATIVE mg/dL (<2.0)
[2018-10-23 09:46] LABS: ALANINE AMINOTRANSFERASE 29 U/L (21-72); ALBUMIN 4.4 g/dL (3.5-5.0); ALKALINE PHOSPHATASE 64 U/L (38-126); ANION GAP 11 (5-19); ASPARTATE AMINO TRANSFERASE 27 U/L (17-59); BILIRUBIN,DIRECT 0.2 mg/dL (0.0-0.4); BILIRUBIN,TOTAL 0.8 mg/dL (0.2-1.3); BLOOD UREA NITROGEN 13 mg/dL (7-20); CARBON DIOXIDE 28 mmol/L (22-30); CHLORIDE 103 mmol/L (98-107); GLUCOSE 122 mg/dL (75-110); POTASSIUM 4.3 mmol/L (3.6-5.0); SODIUM 141.6 mmol/L (137-145); TOTAL PROTEIN 7.3 g/dL (6.3-8.2)
[2018-10-23 10:24] LABS: CHOLESTEROL 129.66 mg/dL (0-200); TRIGLYCERIDES 118 mg/dL (<150)
[2018-10-23 10:35] LABS: DIRECT LDL 72 mg/dL (<100)
== END ==
LOC: OD 08:07
PROVIDERS: ATTEND Physician Assistant
DX: I48.0 Paroxysmal atrial fibrillation (principal); I10 Essential (primary) hypertension; E87.5 Hyperkalemia; I25.10 Atherosclerotic heart disease of native coronary artery without angina pectoris; Z79.899 Other long term (current) drug therapy; D53.8 Other specified nutritional anemias; I47.1 Supraventricular tachycardia; Z79.01 Long term (current) use of anticoagulants; I25.9 Chronic ischemic heart disease, unspecified
CPT/HCPCS: 36415; 80048; 80061; 80076; 81001; 82272; 83735; 85027; 85730

== ENCOUNTER 2018-10-25 07:57 | Day surgery (SDC) | payer MEDICARE ==
[~2018-10-25 07:57] MED LIST changes: -AMINOPHYLLINE INJ/PF 250 MG/10 ML SDV IV ONE; +DIPHENHYDRAMINE HCL 50 MG/ML VIAL ONE; +EPINEPHRINE INJ 1 MG/10 ML DISP.SYRIN ONE; +FLUMAZENIL INJ 0.5 MG/5 ML VIAL ONE; +GLUCAGON,HUMAN RECOMB 1 MG INJ ONE; +NALOXONE HCL INJ/PF 0.4 MG/1 ML SDV ONE; +ONDANSETRON HCL INJ/PF 4 MG/2 ML SDV ONE; -REGADENOSON INJ 0.4 MG/5 ML DISP.SYRIN IV ONE
[2018-10-25] MEDS: MIDAZOLAM 2 MG/2 ML INJ ONE ×2 (08:52→08:57)
[2018-10-25] MEDS: FENTANYL CITRATE INJ/PF 100 MCG/2 ML AMPUL ONE ×3 (08:55→09:05)
--- NOTE | 2018-10-25 09:24 | Discharge Summary ---
Discharge Summary (SDC) - Discharge Final Diagnosis: Remote history of colonic polyps Date of Surgery: 10/25/18 Discharge Date: 10/25/18 Condition: Good Treatment or Instructions: [place] [id number] POST ENDOSCOPY DISCHARGE INSTRUCTIONS 1. Diet: Start clear liquids that a regular diet as tolerated. 2. Resume all preoperative medications. All oral anticoagulants and aspirins can be resumed 24 hours after procedure. 3. If a polypectomy was performed some bleeding per rectum may occur. This should stop within 3 days. If not, please contact the office. 4. If you had a colonoscopy you may experience some bloating and delayed return of normal bowel function for several days, your regular bowel movement pattern should resume within a week. 5. Please contact [facility] at to make an appointment with Dr. Oviedo for 1 to 3 weeks following procedure. 6. If you have any questions or concerns regarding your care,treatment plan or follow up, please contact our office. 7. Per clinical guidelines, based on patient's advanced age, he will likely not be required to have a follow-up colonoscopy; will discuss this in detail in the office.. Referrals: SALVADOR YAO MD [Primary Care Provider] - Discharge Diet: As Tolerated Discharge Activity: Activity As Tolerated Home Care Assistance: None Needed Report the Following to Your Physician Immediately: Shortness of Breath, Increase in Pain, Fever over 101 Degrees
--- NOTE | 2018-10-25 09:26 | Operative Report ---
Operative Report DATE OF SURGERY: 10/25/18 PREOPERATIVE DIAGNOSIS: 1. History of colon polyps. 2. Sigmoid diverticulosis POSTOPERATIVE DIAGNOSIS: Same; normal colonoscopy OPERATION: Total colonoscopy to cecum with photodocumentation SURGEON: SAVITA TAPIA ANESTHESIA: Moderate Sedation TISSUE REMOVED OR ALTERED: None COMPLICATIONS: None ESTIMATED BLOOD LOSS: None INTRAOPERATIVE FINDINGS: See below PROCEDURE: Obtaining informed consent the patient was taken from the preoperative holding area to the main endoscopy suite where monitoring devices were attached to the patient. Plan and surgical timeout were conducted The patient was placed in the left lateral decubitus position with knees to chest. A perianal examination was performed. There was no visible or palpable anorectal pathology. Sphincter tone was felt to be normal. The flexible adult colonoscope was advanced through the anal rectal canal, all the way to the cecum. Visualization of the cecum was achieved and the ileocecal valve, the appendiceal orifice and transillumination of the anterior abdominal wall. This was an excellent study on the well-prepped bowel. The colonoscope was withdrawn slowly and methodically checked and the mucosa carefully. There was no evidence of tumor, stricture, bleeding or polyp. There were extensive diverticulosis of the sigmoid colon; The scope was slowly withdrawn through the anal rectal canal. Complete visualization of the rectum was achieved with photodocumentation. The scope was withdrawn to the patient's anus. The patient tolerated the procedure well and was taken to the recovery area in stable condition. *Patient's age, he will likely not require follow-up colonoscopy; this will be discussed with him in detail with a follow-up appointment.
[2018-10-25 10:24] VITALS: BP 124/53
== END 2018-10-25 10:20 | disposition home or self-care (01) ==
LOC: END 07:57
PROVIDERS: ATTEND Surgery
DX: K57.30 Diverticulosis of large intestine without perforation or abscess without bleeding (principal); Z86.010 Personal history of colon polyps; E78.00 Pure hypercholesterolemia, unspecified; I10 Essential (primary) hypertension; I48.91 Unspecified atrial fibrillation; Z88.0 Allergy status to penicillin; D89.9 Disorder involving the immune mechanism, unspecified; G47.30 Sleep apnea, unspecified; J44.9 Chronic obstructive pulmonary disease, unspecified; M19.90 Unspecified osteoarthritis, unspecified site; I25.2 Old myocardial infarction; Z95.5 Presence of coronary angioplasty implant and graft; Z79.82 Long term (current) use of aspirin; Z79.899 Other long term (current) drug therapy; Z79.01 Long term (current) use of anticoagulants; Z79.51 Long term (current) use of inhaled steroids
CPT/HCPCS: 45378; J2250; J3010; J0171; J1200; J1610; J2310; J2405; J3490

== ENCOUNTER → 2019-01-17 | Outpatient (CLI) | payer MEDICARE ==
[2019-01-17 09:38] LABS: HEMATOCRIT 37.2 % (37.9-51.0); HEMOGLOBIN 12.8 g/dL (13.5-17.0); MEAN CORPUSCULAR HEMOGLOBIN 31.7 pg (27.0-33.4); MEAN CORPUSCULAR HGB CONC 34.3 g/dL (32.0-36.0); MEAN CORPUSCULAR VOLUME 92 fl (80-97); PLATELET COUNT 339 10^3/uL (150-450); RED BLOOD COUNT 4.03 10^6/uL (4.35-5.55); RED CELL DISTRIBUTION WIDTH 14.7 % (11.5-14.0); WHITE BLOOD COUNT 5.5 10^3/uL (4.0-10.5)
[2019-01-17 09:40] LABS: APPEARANCE,URINE CLEAR; BILIRUBIN,URINE NEGATIVE (NEGATIVE); COLOR,URINE YELLOW; GLUCOSE, URINE NEGATIVE (NEGATIVE); KETONES,URINE NEGATIVE (NEGATIVE); LEUKOCYTE ESTERASE,URINE NEGATIVE (NEGATIVE); NITRITE,URINE NEGATIVE (NEGATIVE); PROTEIN,URINE NEGATIVE (NEGATIVE); UROBILINOGEN,URINE NEGATIVE mg/dL (<2.0)
[2019-01-17 10:00] LABS: ALANINE AMINOTRANSFERASE 34 U/L (21-72); ALBUMIN 3.8 g/dL (3.5-5.0); ALKALINE PHOSPHATASE 72 U/L (38-126); ANION GAP 9 (5-19); ASPARTATE AMINO TRANSFERASE 27 U/L (17-59); BILIRUBIN,DIRECT 0.2 mg/dL (0.0-0.4); BILIRUBIN,TOTAL 0.7 mg/dL (0.2-1.3); BLOOD UREA NITROGEN 14 mg/dL (7-20); CALCIUM 8.9 mg/dL (8.4-10.2); CARBON DIOXIDE 28 mmol/L (22-30); CHLORIDE 103 mmol/L (98-107); GLUCOSE 126 mg/dL (75-110); POTASSIUM 4.4 mmol/L (3.6-5.0); TOTAL PROTEIN 7.2 g/dL (6.3-8.2)
== END ==
LOC: OD 08:28
PROVIDERS: ATTEND Internal Medicine Cardiovascular Disease
DX: I48.0 Paroxysmal atrial fibrillation (principal); I10 Essential (primary) hypertension; I47.1 Supraventricular tachycardia; Z79.01 Long term (current) use of anticoagulants; I25.9 Chronic ischemic heart disease, unspecified; Z79.899 Other long term (current) drug therapy
CPT/HCPCS: 36415; 80048; 80076; 81001; 82272; 83735; 85027; 85730

== ENCOUNTER → 2019-04-18 | Outpatient (CLI) | payer MEDICARE ==
[2019-04-18 08:52] LABS: HEMATOCRIT 37.5 % (37.9-51.0); HEMOGLOBIN 12.7 g/dL (13.5-17.0); MEAN CORPUSCULAR HGB CONC 33.8 g/dL (32.0-36.0); MEAN CORPUSCULAR VOLUME 92 fl (80-97); PLATELET COUNT 261 10^3/uL (150-450); RED BLOOD COUNT 4.08 10^6/uL (4.35-5.55); RED CELL DISTRIBUTION WIDTH 14.9 % (11.5-14.0); WHITE BLOOD COUNT 6.9 10^3/uL (4.0-10.5)
[2019-04-18 08:58] LABS: APPEARANCE,URINE CLEAR; BILIRUBIN,URINE NEGATIVE (NEGATIVE); COLOR,URINE YELLOW; GLUCOSE, URINE NEGATIVE (NEGATIVE); KETONES,URINE NEGATIVE (NEGATIVE); LEUKOCYTE ESTERASE,URINE NEGATIVE (NEGATIVE); NITRITE,URINE NEGATIVE (NEGATIVE); PROTEIN,URINE NEGATIVE (NEGATIVE); URINE SPECIFIC GRAVITY 1.013; UROBILINOGEN,URINE NEGATIVE mg/dL (<2.0)
[2019-04-18 09:21] LABS: ALANINE AMINOTRANSFERASE 23 U/L (21-72); ALBUMIN 3.9 g/dL (3.5-5.0); ALKALINE PHOSPHATASE 62 U/L (38-126); ANION GAP 10 (5-19); ASPARTATE AMINO TRANSFERASE 23 U/L (17-59); BILIRUBIN,DIRECT 0.1 mg/dL (0.0-0.4); BILIRUBIN,TOTAL 0.8 mg/dL (0.2-1.3); BLOOD UREA NITROGEN 15 mg/dL (7-20); CARBON DIOXIDE 28 mmol/L (22-30); CHLORIDE 101 mmol/L (98-107); GLUCOSE 119 mg/dL (75-110); POTASSIUM 4.4 mmol/L (3.6-5.0); SODIUM 138.8 mmol/L (137-145)
== END ==
LOC: OD 08:12
PROVIDERS: ATTEND Internal Medicine Cardiovascular Disease
DX: I48.0 Paroxysmal atrial fibrillation (principal); I10 Essential (primary) hypertension; Z79.899 Other long term (current) drug therapy; D53.8 Other specified nutritional anemias; Z79.01 Long term (current) use of anticoagulants; I25.9 Chronic ischemic heart disease, unspecified; E87.5 Hyperkalemia
CPT/HCPCS: 36415; 80048; 80076; 81001; 82272; 83735; 85027; 85730

== ENCOUNTER → 2019-07-25 | Outpatient (CLI) | payer MEDICARE ==
[2019-07-25 09:07] LABS: HEMOGLOBIN 12.4 g/dL (13.5-17.0); MEAN CORPUSCULAR HGB CONC 34.3 g/dL (32.0-36.0); MEAN CORPUSCULAR VOLUME 90 fl (80-97); PLATELET COUNT 274 10^3/uL (150-450); RED BLOOD COUNT 3.99 10^6/uL (4.35-5.55); RED CELL DISTRIBUTION WIDTH 14.8 % (11.5-14.0); WHITE BLOOD COUNT 6.9 10^3/uL (4.0-10.5)
[2019-07-25 09:29] LABS: APPEARANCE,URINE CLEAR; BILIRUBIN,URINE NEGATIVE (NEGATIVE); COLOR,URINE YELLOW; GLUCOSE, URINE NEGATIVE (NEGATIVE); KETONES,URINE NEGATIVE (NEGATIVE); LEUKOCYTE ESTERASE,URINE NEGATIVE (NEGATIVE); NITRITE,URINE NEGATIVE (NEGATIVE); PROTEIN,URINE NEGATIVE (NEGATIVE); URINE SPECIFIC GRAVITY 1.015; UROBILINOGEN,URINE NEGATIVE mg/dL (<2.0)
[2019-07-25 09:58] LABS: ALKALINE PHOSPHATASE 68 U/L (38-126); ANION GAP 9 (5-19); ASPARTATE AMINO TRANSFERASE 27 U/L (17-59); BILIRUBIN,DIRECT 0.1 mg/dL (0.0-0.4); BILIRUBIN,TOTAL 0.9 mg/dL (0.2-1.3); BLOOD UREA NITROGEN 12 mg/dL (7-20); CALCIUM 8.8 mg/dL (8.4-10.2); CARBON DIOXIDE 28 mmol/L (22-30); CHLORIDE 101 mmol/L (98-107); GLUCOSE 127 mg/dL (75-110); POTASSIUM 4.4 mmol/L (3.6-5.0); TOTAL PROTEIN 7.2 g/dL (6.3-8.2)
== END ==
LOC: OD 08:24
PROVIDERS: ATTEND Internal Medicine Cardiovascular Disease
DX: E87.5 Hyperkalemia (principal); D53.8 Other specified nutritional anemias; I47.1 Supraventricular tachycardia; I48.0 Paroxysmal atrial fibrillation; I10 Essential (primary) hypertension; I25.9 Chronic ischemic heart disease, unspecified; Z79.01 Long term (current) use of anticoagulants; Z79.899 Other long term (current) drug therapy
CPT/HCPCS: 36415; 80048; 80076; 81001; 82272; 83735; 85027; 85730

== ENCOUNTER → 2019-10-17 | Outpatient (CLI) | payer MEDICARE ==
[2019-10-17 09:28] LABS: HEMATOCRIT 39.4 % (37.9-51.0); HEMOGLOBIN 13.4 g/dL (13.5-17.0); MEAN CORPUSCULAR HEMOGLOBIN 31.9 pg (27.0-33.4); MEAN CORPUSCULAR HGB CONC 34.1 g/dL (32.0-36.0); MEAN CORPUSCULAR VOLUME 94 fl (80-97); PLATELET COUNT 190 10^3/uL (150-450); RED BLOOD COUNT 4.21 10^6/uL (4.35-5.55); RED CELL DISTRIBUTION WIDTH 15.5 % (11.5-14.0); WHITE BLOOD COUNT 4.3 10^3/uL (4.0-10.5)
[2019-10-17 09:28] LABS: APPEARANCE,URINE SLIGHTLY-CLOUDY; BILIRUBIN,URINE NEGATIVE (NEGATIVE); COLOR,URINE YELLOW; GLUCOSE, URINE NEGATIVE (NEGATIVE); KETONES,URINE 20 mg/dL (NEGATIVE); LEUKOCYTE ESTERASE,URINE NEGATIVE (NEGATIVE); NITRITE,URINE NEGATIVE (NEGATIVE); PROTEIN,URINE 30 mg/dL (NEGATIVE); URINE SPECIFIC GRAVITY 1.026; UROBILINOGEN,URINE NEGATIVE mg/dL (<2.0)
[2019-10-17 09:54] LABS: ALBUMIN 4.1 g/dL (3.5-5.0); ALKALINE PHOSPHATASE 73 U/L (38-126); ANION GAP 14 (5-19); ASPARTATE AMINO TRANSFERASE 102 U/L (17-59); BILIRUBIN,DIRECT 0.2 mg/dL (0.0-0.4); BILIRUBIN,TOTAL 0.6 mg/dL (0.2-1.3); BLOOD UREA NITROGEN 17 mg/dL (7-20); CALCIUM 8.5 mg/dL (8.4-10.2); CARBON DIOXIDE 28 mmol/L (22-30); CHLORIDE 96 mmol/L (98-107); GLUCOSE 110 mg/dL (75-110); POTASSIUM 3.9 mmol/L (3.6-5.0); TOTAL PROTEIN 7.5 g/dL (6.3-8.2)
== END ==
LOC: OD 08:30
PROVIDERS: ATTEND Internal Medicine Cardiovascular Disease
DX: I48.0 Paroxysmal atrial fibrillation (principal); I10 Essential (primary) hypertension; I25.9 Chronic ischemic heart disease, unspecified; E87.5 Hyperkalemia; D53.8 Other specified nutritional anemias; I47.1 Supraventricular tachycardia; Z79.01 Long term (current) use of anticoagulants; Z79.899 Other long term (current) drug therapy
CPT/HCPCS: 36415; 80048; 80076; 81001; 82272; 83735; 85027; 85730

== ENCOUNTER 2019-11-13 16:17 | Inpatient (IN) | payer MEDICARE ==
[2019-11-13] MEDS: NORMAL SALINE 1000 ML 1,000 ML IV PRN (17:17)
[2019-11-13 17:33] LABS: ABSOLUTE LYMPHOCYTES (AUTO) 1.3 10^3/uL (0.5-4.7); ABSOLUTE MONOCYTES (AUTO) 0.9 10^3/uL (0.1-1.4); ABSOLUTE NEUT (AUTO) 12.6 10^3/uL (1.7-8.2); BASOPHILS % (AUTO) 0.1 % (0-2); EOSINOPHILS % (AUTO) 0.1 % (0-6); HEMATOCRIT 34.5 % (37.9-51.0); HEMOGLOBIN 11.9 g/dL (13.5-17.0); MEAN CORPUSCULAR HEMOGLOBIN 31.8 pg (27.0-33.4); MEAN CORPUSCULAR HGB CONC 34.6 g/dL (32.0-36.0); MEAN CORPUSCULAR VOLUME 92 fl (80-97); MONOCYTES % (AUTO) 6.3 % (3-13); PLATELET COUNT 271 10^3/uL (150-450); RED BLOOD COUNT 3.75 10^6/uL (4.35-5.55); RED CELL DISTRIBUTION WIDTH 15.9 % (11.5-14.0); SEGMENTED NEUTROPHILS % (AUTO) 84.5 % (42-78); TOTAL CELLS COUNTED % (AUTO) 100 %; WHITE BLOOD COUNT 14.9 10^3/uL (4.0-10.5)
[2019-11-13 18:14] LABS: ALBUMIN 3.6 g/dL (3.5-5.0); ALKALINE PHOSPHATASE 82 U/L (38-126); ANION GAP 11 (5-19); ASPARTATE AMINO TRANSFERASE 27 U/L (17-59); BILIRUBIN,TOTAL 0.8 mg/dL (0.2-1.3); BLOOD UREA NITROGEN 13 mg/dL (7-20); CALCIUM 8.5 mg/dL (8.4-10.2); CARBON DIOXIDE 26 mmol/L (22-30); CHLORIDE 99 mmol/L (98-107); GLUCOSE 120 mg/dL (75-110); POTASSIUM 4.1 mmol/L (3.6-5.0); TOTAL PROTEIN 6.8 g/dL (6.3-8.2)
--- NOTE | 2019-11-13 18:20 | RADIOLOGY REPORT (SQ) ---
EXAM DESCRIPTION: CHEST 2 VIEWS COMPLETED DATE/TIME: 11/13/2019 6:04 pm REASON FOR STUDY: cough and chills COMPARISON: Chest x-ray dated 06/26/2017. Chest CT dated 08/28/2018. EXAM PARAMETERS: NUMBER OF VIEWS: two views TECHNIQUE: Digital Frontal and Lateral radiographic views of the chest acquired. RADIATION DOSE: NA LIMITATIONS: none FINDINGS: LUNGS AND PLEURA: Chronic pleural and parenchymal scarring. No infiltrates, masses or pne umothorax. No pleural effusion. MEDIASTINUM AND HILAR STRUCTURES: No masses or contour abnormalities. HEART AND VASCULAR STRUCTURES: Heart normal size. No evidence for failure. BONES: No acute findings. HARDWARE: None in the chest. OTHER: No other significant finding. IMPRESSION: CHRONIC PLEURAL AND PARENCHYMAL SCARRING. NO ACUTE RADIOGRAPHIC FINDING IN THE CHEST. TECHNICAL DOCUMENTATION: JOB ID: [id number] [employer]- All Rights Reserved Reading location - IP/workstation name: [email or web address]
[2019-11-13] MEDS: AZTREONAM 1 GM in DEXTROSE 5%-WATER 50 ML IV SCH (18:26)
[2019-11-13] MEDS ORDERED: DIPHENOXYLATE HCL/ATROP SULF 2.5-0.025 MG TABLET PO PRN (20:08)
[2019-11-13] MEDS ORDERED: NITROGLYCERIN 0.4 MG/TAB 25 TAB/BOTTLE SL PRN (20:08)
--- NOTE | 2019-11-13 20:38 | PDOC H&P ---
History of Present Illness Admission Date/PCP: 11/13/19 16:17 SAMUEL AC MD Patient complains of: Shaking chills History of Present Illness: KEIRY IVERSON is a 84 year old male patient known to practice who presented with sudden onset of shaking chills. Patient reported that he travelled to [place] for lunch with spouse and upon arriving at the restaurant he suddenly started having shaking chills to the extent that he was unable to feed himself. He was driven from the restaurant directly to my office. He reported associated cold feeling, weakness,fatigue, and wheezing. He reported feeling slowed down all of today. His initial evaluation in the office was significant for low grade fever at 99.6F audible wheezing, rhonchi, wet rales and crackles. His CBC with diff revealed significant leukocytosis with left shift. In view of his leukocytosis, extensive limitation in oral antibiotic choice due to his allergy history and recent completion of a 10 days course of oral Levofloxacin, he was advised hospitalization for further evaluation and management. His morbidities are as listed below. Past Medical History Cardiac Medical History: Reports: Coronary Artery Disease, Myocardial Infarction, Hyperlipidema, Hypertension Pulmonary Medical History: Reports: Bronchitis, Chronic Obstructive Pulmonary Disease (COPD), Pneumonia Denies: Asthma Neurological Medical History: Denies: Seizures Endocrine Medical History: Reports: Other - Impaired Fasting Glucose Malignancy Medical History: Reports: Skin Cancer Musculoskeltal Medical History: Reports: Arthritis - RA Psychiatric Medical History: Reports: Depression Hematology: Denies: Anemia Past Surgical History Past Surgical History: Reports: Appendectomy, Cardiac Catheterization - with stents, Coronary Stent, Orthopedic Surgery - facial, right hand Social History Smoking Status: Never Smoker Frequency of Alcohol Use: None Hx Recreational Drug Use: No Hx Prescription Drug Abuse: No - Advance Directive Resuscitation Status: Full Code Surrogate healthcare decision maker:: Allie Iverson, spouse. Family History Family History: Reviewed & Not Pertinent Parental Family History Reviewed: Yes Children Family History Reviewed: Yes Sibling(s) Family History Reviewed.: Yes Medication/Allergy Home Medications: Aspirin [Aspir-Low] 81 mg PO DAILY 11/13/19 Diltiazem HCl [Diltiazem ER] 90 mg PO 11/13/19 Diphenoxylate HCl/Atrop Sulf [Lomotil 2.5 mg Tablet] 1 tab PO ASDIR PRN 11/13/19 Dutasteride 0.5 mg PO DAILY 11/13/19 Fluticasone Propionate [Flonase Nasal [place] 50 Mcg/[place] 16 gm] 2 sprays NASL QPM 11/13/19 Fluticasone/Vilanterol [Breo 100-25 Mcg Ellipta 14 Dose/Dpi] 1 inh IH DAILY 02/25 Folic Acid 1 mg PO DAILY 11/13/19 Furosemide [Lasix 20 mg Tablet] 20 mg PO QAM 11/13/19 Methotrexate Sodium [Rheumatrex 2.5 mg Tablet] 2.5 mg PO 11/13/19 Nitroglycerin [Nitrostat 0.4 mg (1/150 Gr) Tabs 25/Bottle] 1 tab SL Q5MP PRN 11/13/19 Rivaroxaban [Xarelto] 20 mg PO DAILY 11/13/19 Rosuvastatin Calcium 20 mg PO DAILY 11/13/19 Sotalol HCl [Betapace 80 mg Tablet] 1 tab PO Q12 11/13/19 Tamsulosin HCl [Flomax] 0.4 mg PO DAILY 11/13/19 Vit C/E/Zn/Coppr/Lutein/Zeaxan [Preservision Areds 2 Softgel] 1 each PO Q12 11/13/19 Allergies/Adverse Reactions: tetracycline [Tetracycline] Allergy (Verified 04/26/19 16:42) dairy products Allergy (Uncoded 04/26/19 16:42) Review of Systems Constitutional: PRESENT: chills, fatigue, weakness Eyes: PRESENT: visual disturbances Ears: ABSENT: hearing changes Nose, Mouth, and Throat: ABSENT: headache(s), sore throat, vertigo Cardiovascular: PRESENT: dyspnea on exertion. ABSENT: chest pain, edema, orthropnea, palpitations Respiratory: PRESENT: cough, dyspnea, sputum Gastrointestinal: ABSENT: abdominal pain, constipation, diarrhea, hematemesis, hematochezia, nausea, vomiting Genitourinary: ABSENT: dysuria, hematuria Integumentary: ABSENT: rash, wounds Neurological: ABSENT: abnormal gait, abnormal speech, confusion, dizziness, focal weakness, syncope Psychiatric: ABSENT: anxiety, depression, homidical ideation, suicidal ideation Endocrine: ABSENT: cold intolerance, heat intolerance, polydipsia, polyuria Hematologic/Lymphatic: ABSENT: easy bleeding, easy bruising, lymphadenopathy Allergic/Immunologic: ABSENT: seasonal rhinorrhea Physical Exam Vital Signs: Temp Pulse Resp BP Pulse Ox 98.3 F 77 17 119/54 L 93 11/13/19 16:54 11/13/19 19:00 11/13/19 16:54 11/13/19 16:54 11/13/19 16:54 Intake & Output 11/12/19 11/13/19 11/14/19 06:59 06:59 06:59 Intake Total 0 Output Total 0 Balance 0 Weight 84.9 kg General appearance: PRESENT: mild distress - related to underlying OPD Head exam: PRESENT: atraumatic, normocephalic Eye exam: PRESENT: conjunctiva pink, EOMI, PERRLA. ABSENT: scleral icterus Ear exam: PRESENT: normal external ear exam Mouth exam: PRESENT: moist Throat exam: ABSENT: post pharyngeal erythema, tonsillar erythema, tonsillar exudate, tonsillogmegaly, other Neck exam: PRESENT: full ROM. ABSENT: carotid bruit, JVD, lymphadenopathy, thyromegaly Respiratory exam: PRESENT: crackles, decreased breath sounds, rhonchi, wheezes Cardiovascular exam: PRESENT: diastolic murmur, irregular rhythm, +S1, +S2, systolic murmur Vascular exam: ABSENT: pallor GI/Abdominal exam: PRESENT: normal bowel sounds, soft. ABSENT: distended, guar ding, mass, organolmegaly, rebound, tenderness Rectal exam: PRESENT: deferred Extremities exam: ABSENT: pedal edema Musculoskeletal exam: PRESENT: ambulatory, normal inspection Neurological exam: PRESENT: alert, awake, oriented to person, oriented to place, oriented to time, oriented to situation, CN II-XII grossly intact. ABSENT: motor sensory deficit Psychiatric exam: PRESENT: appropriate affect, normal mood. ABSENT: homicidal ideation, suicidal ideation Skin exam: PRESENT: dry, warm Results Laboratory Results: 11/13/19 17:09 11/13/19 17:09 11/13/19 11/13/19 17:09 17:09 WBC 14.9 H RBC 3.75 L Hgb 11.9 L Hct 34.5 L MCV 92 MCH 31.8 MCHC 34.6 RDW 15.9 H Plt Count 271 Seg Neutrophils % 84.5 H Sodium 135.7 L Potassium 4.1 Chloride 99 Carbon Dioxide 26 Anion Gap 11 BUN 13 Creatinine 0.62 Est GFR ( Amer) > 60 Glucose 120 H Calcium 8.5 Total Bilirubin 0.8 AST 27 Alkaline Phosphatase 82 Total Protein 6.8 Albumin 3.6 Impressions: Chest X-Ray 11/13/19 00:00 IMPRESSION: CHRONIC PLEURAL AND PARENCHYMAL SCARRING. NO ACUTE RADIOGRAPHIC FI NDING IN THE CHEST. Assessment & Plan - Diagnosis (1) Acute bronchitis, bacterial Is this a current diagnosis for this admission?: Yes Plan: See admitting attending physician orders for details about care plan. (2) COPD (chronic obstructive pulmonary disease) Qualifiers: COPD type: emphysema Emphysema type: unspecified Qualified Code(s): J43.9 - Emphysema, unspecified Is this a current diagnosis for this admission?: Yes Plan: See admitting attending physician orders for details about care plan. (3) Chronic atrial fibrillation Is this a current diagnosis for this admission?: Yes Plan: See admitting attending physician orders for details about care plan. (4) HTN (hypertension) Qualifiers: Hypertension type: essential hypertension Qualified Code(s): I10 - Essential (primary) hypertension Is this a current diagnosis for this admission?: Yes Plan: See admitting attending physician orders for details about care plan. (5) HLD (hyperlipidemia) Qualifiers: Hyperlipidemia type: unspecified Qualified Code(s): E78.5 - Hyperlipidemia, unspecified Is this a current diagnosis for this admission?: Yes Plan: See admitting attending physician orders for details about care plan. (6) BPH (benign prostatic hyperplasia) Qualifiers: Lower urinary tract symptom presence: unspecified whether lower urinary tract symptoms present Qualified Code(s): N40.0 - Benign prostatic hyperplasia without lower urinary tract symptoms Is this a current diagnosis for this admission?: Yes Plan: See admitting attending physician orders for details about care plan. (7) Osteoarthritis Qualifiers: Osteoarthritis location: multiple joints Osteoarthritis type: primary Qualified Code(s): M15.0 - Primary generalized (osteo)arthritis Is this a current diagnosis for this admission?: Yes Plan: See admitting attending physician orders for details about care plan. (8) Rheumatoid arthritis Qualifiers: Laterality: unspecified laterality Is this a current diagnosis for this admission?: Yes Plan: See admitting attending physician orders for details about care plan. - Time Time Spent: 50 to 70 Minutes Medications reviewed and adjusted accordingly: Yes Anticipated discharge: Home with Homehealth Within: Other - Inpatient Certification Based on my medical assessment, after consideration of the patient's c omorbidities, presenting symptoms, or acuity I expect that the services needed warrant INPATIENT care.: Yes I certify that my determination is in accordance with my understanding of Medicare's requirements for reasonable and necessary INPATIENT services [42 CFR 412.3e].: Yes Medical Necessity: Significant Comorbidiites Make Outpatient Treatment Too Risky, Need Close Monitoring Due to Risk of Patient Decompensation, Need For IV Fluids, Need For Continuous Telemetry Monitoring, Need for IV Antibiotics, Risk of Complication if Not Cared For in Hospital, Risk of Diagnosis Which Will Require Inpatient Eval/Care/Monitoring Post Hospital 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
[2019-11-13] MEDS ORDERED: METHOTREXATE SODIUM 2.5 MG TABLET PO SCH (20:45)
[2019-11-13] MEDS: SOTALOL HCL 80 MG TABLET PO SCH (21:59)
[2019-11-13] MEDS: RIVAROXABAN 10 MG TABLET PO SCH (21:59)
[2019-11-13] MEDS: DILTIAZEM HCL 90 MG TABLET PO SCH (21:59)
[2019-11-13] MEDS ORDERED: (PENDING PHARMACY ID) (Vit C/E/Zn/Coppr/Lutein/Zeaxan [Preservision Areds 2 Softgel] 1 EAC PO SCH (22:00)
[2019-11-13] MEDS ORDERED: SOTALOL HCL 80 MG TABLET PO SCH (22:00)
[2019-11-14] MEDS: AZTREONAM 1 GM in DEXTROSE 5%-WATER 50 ML IV SCH ×3 (02:13→17:03)
[2019-11-14] MEDS: NORMAL SALINE 1000 ML 1,000 ML IV PRN ×2 (02:14→20:24)
[2019-11-14] MEDS: PANTOPRAZOLE SODIUM 40 MG TABLET.DR PO SCH (05:12)
[2019-11-14 05:49] LABS: ABSOLUTE EOSINOPHILS # (AUTO) 0.1 10^3/uL (0.0-0.6); ABSOLUTE LYMPHOCYTES (AUTO) 2.2 10^3/uL (0.5-4.7); ABSOLUTE NEUT (AUTO) 8.9 10^3/uL (1.7-8.2); BASOPHILS % (AUTO) 0.2 % (0-2); EOSINOPHILS % (AUTO) 0.8 % (0-6); HEMOGLOBIN 10.6 g/dL (13.5-17.0); LYMPHOCYTES % (AUTO) 18.3 % (13-45); MEAN CORPUSCULAR HEMOGLOBIN 31.3 pg (27.0-33.4); MEAN CORPUSCULAR HGB CONC 34.2 g/dL (32.0-36.0); MEAN CORPUSCULAR VOLUME 92 fl (80-97); MONOCYTES % (AUTO) 7.8 % (3-13); PLATELET COUNT 233 10^3/uL (150-450); RED BLOOD COUNT 3.38 10^6/uL (4.35-5.55); SEGMENTED NEUTROPHILS % (AUTO) 72.9 % (42-78); TOTAL CELLS COUNTED % (AUTO) 100 %; WHITE BLOOD COUNT 12.2 10^3/uL (4.0-10.5)
[2019-11-14 06:20] LABS: BLOOD UREA NITROGEN 11 mg/dL (7-20); GLUCOSE 113 mg/dL (75-110)
[2019-11-14 06:21] LABS: ALBUMIN 2.9 g/dL (3.5-5.0); ALKALINE PHOSPHATASE 63 U/L (38-126); ANION GAP 8 (5-19); ASPARTATE AMINO TRANSFERASE 20 U/L (17-59); BILIRUBIN,DIRECT 0.1 mg/dL (0.0-0.4); BILIRUBIN,TOTAL 0.8 mg/dL (0.2-1.3); CARBON DIOXIDE 26 mmol/L (22-30); CHLORIDE 103 mmol/L (98-107); POTASSIUM 3.6 mmol/L (3.6-5.0); TOTAL PROTEIN 5.9 g/dL (6.3-8.2)
[2019-11-14] MEDS: FUROSEMIDE 20 MG TABLET PO SCH (08:05)
[2019-11-14] MEDS: ASPIRIN 81 MG TABLET, ENT COATED PO SCH (09:08)
[2019-11-14] MEDS: FOLIC ACID 1 MG TABLET PO SCH (09:08)
[2019-11-14] MEDS: ATORVASTATIN CALCIUM 80 MG TABLET PO SCH (09:08)
[2019-11-14] MEDS: TAMSULOSIN HCL 0.4 MG CAP.SR.24H PO SCH (09:08)
[2019-11-14] MEDS: FLUTICASONE/VILANTEROL 100-25 MCG/DOSE IH SCH (09:09)
[2019-11-14] MEDS: DUTASTERIDE 0.5 MG CAPSULE PO SCH (09:09)
[2019-11-14] MEDS: SOTALOL HCL 80 MG TABLET PO SCH ×2 (09:16→22:15)
[2019-11-14] MEDS ORDERED: (PENDING PHARMACY ID) (Rosuvastatin Calcium [Rosuvastatin Calcium] 20 MG) PO SCH (10:00)
[2019-11-14] MEDS ORDERED: DILTIAZEM HCL 90 MG PO SCH (18:00)
--- NOTE | 2019-11-14 18:14 | PDOC PROGRESS REPORT ---
Subjective Progress Note for:: 11/14/19 Subjective:: Patient continue to experience intermittent productive cough. No fever or chills. No chest pain. No nausea, vomiting or abdominal pain. Reason For Visit: CHILLS,COUGH,LEUKOCYTOSIS,H/O EMPHYSEMATOUS Physical Exam Vital Signs: Temp Pulse Resp BP Pulse Ox 97.5 F 83 16 110/59 L 90 L 11/14/19 15:26 11/14/19 15:26 11/14/19 15:26 11/14/19 15:26 11/14/19 15:26 Intake & Output 11/13/19 11/14/19 11/15/19 06:59 06:59 06:59 Intake Total 1342 600 Output Total 0 Balance 1342 600 Weight 88.2 kg General appearance: PRESENT: no acute distress Head exam: PRESENT: atraumatic, normocephalic Eye exam: PRESENT: conjunctiva pink. ABSENT: scleral icterus Ear exam: PRESENT: normal external ear exam Mouth exam: PRESENT: moist Respiratory exam: PRESENT: decreased breath sounds - at lung bases, rhonchi - end expiratory phase Cardiovascular exam: PRESENT: RRR. ABSENT: diastolic murmur, rubs, systolic murmur Vascular exam: ABSENT: pallor GI/Abdominal exam: PRESENT: normal bowel sounds, soft. ABSENT: distended, gu arding, mass, organolmegaly, rebound, tenderness Extremities exam: ABSENT: pedal edema Neurological exam: PRESENT: alert, awake, oriented to person, oriented to place, oriented to time, oriented to situation, CN II-XII grossly intact. ABSENT: motor sensory deficit Psychiatric exam: PRESENT: appropriate affect, normal mood. ABSENT: homicidal ideation, suicidal ideation Skin exam: PRESENT: dry, warm Results Laboratory Results: 11/14/19 05:12 11/14/19 05:12 11/13/19 11/14/19 11/14/19 17:09 05:12 05:12 WBC 12.2 H RBC 3.38 L Hgb 10.6 L Hct 31.0 L MCV 92 MCH 31.3 MCHC 34.2 RDW 16.0 H Plt Count 233 Seg Neutrophils % 72.9 Sodium 135.7 L 136.8 L Potassium 4.1 3.6 Chloride 99 103 Carbon Dioxide 26 26 Anion Gap 11 8 BUN 13 11 Creatinine 0.62 0.54 Est GFR ( Amer) > 60 > 60 Glucose 120 H 113 H Calcium 8.5 8.0 L Total Bilirubin 0.8 0.8 AST 27 20 Alkaline Phosphatase 82 63 Total Protein 6.8 5.9 L Albumin 3.6 2.9 L Impressions: Chest X-Ray 11/13/19 00:00 IMPRESSION: CHRONIC PLEURAL AND PARENCHYMAL SCARRING. NO ACUTE RADIOGRAPHIC FINDING IN THE CHEST. Assessment & Plan - Diagnosis (1) Acute bronchitis, bacterial Is this a current diagnosis for this admission?: Yes (2) COPD (chronic obstructive pulmonary disease) Qualifiers: COPD type: emphysema Emphysema type: unspecified Qualified Code(s): J43.9 - Emphysema, unspecified Is this a current diagnosis for this admission?: Yes (3) Chronic atrial fibrillation Is this a current diagnosis for this admission?: Yes (4) HTN (hypertension) Qualifiers: Hypertension type: essential hypertension Qualified Code(s): I10 - Essential (primary) hypertension Is this a current diagnosis for this admission?: Yes (5) HLD (hyperlipidemia) Qualifiers: Hyperlipidemia type: unspecified Qualified Code(s): E78.5 - Hyperlipidemia, unspecified Is this a current diagnosis for this admission?: Yes (6) BPH (benign prostatic hyperplasia) Qualifiers: Lower urinary tract symptom presence: unspecified whether lower urinary tract symptoms present Qualified Code(s): N40.0 - Benign prostatic hyperplasia with out lower urinary tract symptoms Is this a current diagnosis for this admission?: Yes (7) Osteoarthritis Qualifiers: Osteoarthritis location: multiple joints Osteoarthritis type: primary Qualified Code(s): M15.0 - Primary generalized (osteo)arthritis Is this a current diagnosis for this admission?: Yes (8) Rheumatoid arthritis Qualifiers: Laterality: unspecified laterality Is this a current diagnosis for this admission?: Yes - Time Time Spent with patient: 25-34 minutes Level of Care: IMCU Medications reviewed and adjusted accordingly: Yes Anticipated discharge: Home with Homehealth Within: Other - Inpatient Certification Based on my medical assessment, after consideration of the patient's ilana rbidities, presenting symptoms, or acuity I expect that the services needed warrant INPATIENT care.: Yes I certify that my determination is in accordance with my understanding of Medicare's requirements for reasonable and necessary INPATIENT services [42 CFR 412.3e].: Yes Medical Necessity: Significant Comorbidiites Make Outpatient Treatment Too Risky, Need Close Monitoring Due to Risk of Patient Decompensation, Need For IV Fluids, Need For Continuous Telemetry Monitoring, Need for Nebulizer Therapy and Monitoring of Response, Need for IV Antibiotics, Risk of Complication if Not Cared For in Hospital, Risk of Diagnosis Which Will Require Inpatient Eval/Care/Monitoring 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 Follow up on culture findings, I discussed his antibiotic coverage with clinical pharmacist, no comparable oral substitute at this time. Continue all other current medication management.
[2019-11-14] MEDS: RIVAROXABAN 10 MG TABLET PO SCH (22:15)
[2019-11-15] MEDS: DILTIAZEM HCL 90 MG TABLET PO SCH ×2 (00:18→21:11)
[2019-11-15] MEDS: AZTREONAM 1 GM in DEXTROSE 5%-WATER 50 ML IV SCH ×3 (01:08→17:39)
[2019-11-15] MEDS: NORMAL SALINE 1000 ML 1,000 ML IV PRN ×3 (01:09→21:14)
[2019-11-15] MEDS: PANTOPRAZOLE SODIUM 40 MG TABLET.DR PO SCH (05:24)
[2019-11-15] MEDS: ASPIRIN 81 MG TABLET, ENT COATED PO SCH (09:42)
[2019-11-15] MEDS: ATORVASTATIN CALCIUM 80 MG TABLET PO SCH (09:42)
[2019-11-15] MEDS: FOLIC ACID 1 MG TABLET PO SCH (09:42)
[2019-11-15] MEDS: TAMSULOSIN HCL 0.4 MG CAP.SR.24H PO SCH (09:42)
[2019-11-15] MEDS: FUROSEMIDE 20 MG TABLET PO SCH (09:42)
[2019-11-15] MEDS: FLUTICASONE/VILANTEROL 100-25 MCG/DOSE IH SCH (09:44)
[2019-11-15] MEDS: DUTASTERIDE 0.5 MG CAPSULE PO SCH (09:44)
[2019-11-15] MEDS: SOTALOL HCL 80 MG TABLET PO SCH ×2 (09:47→21:11)
--- NOTE | 2019-11-15 17:26 | PDOC PROGRESS REPORT ---
Subjective Progress Note for:: 11/15/19 Subjective:: Patient denied any fever or chills. No chest pain or difficulty with breathing. No nausea, vomiting or abdominal pain. Reason For Visit: CHILLS,COUGH,LEUKOCYTOSIS,H/O EMPHYSEMETOUS Physical Exam Vital Signs: Temp Pulse Resp BP Pulse Ox 98.0 F 63 16 130/56 H 98 11/15/19 12:28 11/15/19 14:00 11/15/19 12:28 11/15/19 12:28 11/15/19 12:28 Intake & Output 11/14/19 11/15/19 11/16/19 06:59 06:59 06:59 Intake Total 1342 3028 Output Total 0 Balance 1342 3028 Weight 88.2 kg 89 kg Physical Exam: General appearance: PRESENT: no acute distress Head exam: PRESENT: atraumatic, normocephalic Eye exam: PRESENT: conjunctiva pink. ABSENT: pallor, scleral icterus Ear exam: PRESENT: normal external ear exam Mouth exam: PRESENT: moist Respiratory exam: PRESENT: decreased breath sounds - at lung bases, rhonchi - end expiratory phase Cardiovascular exam: PRESENT: RRR. ABSENT: diastolic murmur, rubs, systolic m urmur GI/Abdominal exam: PRESENT: normal bowel sounds, soft. ABSENT: distended, guarding, mass, organomegaly, rebound, tenderness Extremities exam: ABSENT: pedal edema Neurological exam: PRESENT: alert, awake, oriented to person, oriented to place, oriented to time, oriented to situation, CN II-XII grossly intact. ABSENT: motor sensory deficit Psychiatric exam: PRESENT: appropriate affect, normal mood. ABSENT: homicidal ideation, suicidal ideation Skin exam: PRESENT: dry, warm Results Laboratory Results: 11/14/19 05:12 11/14/19 05:12 11/13/19 17:28 Sputum Gram Stain - Final Impressions: Chest X-Ray 11/13/19 00:00 IMPRESSION: CHRONIC PLEURAL AND PARENCHYMAL SCARRING. NO ACUTE RADIOGRAPHIC FINDING IN THE CHEST. Assessment & Plan - Diagnosis (1) Acute bronchitis, bacterial Is this a current diagnosis for this admission?: Yes (2) COPD (chronic obstructive pulmonary disease) Qualifiers: COPD type: emphysema Emphysema type: unspecified Qualified Code(s): J43.9 - Emphysema, unspecified Is this a current diagnosis for this admission?: Yes (3) Chronic atrial fibrillation Is this a current diagnosis for this admission?: Yes (4) HTN (hypertension) Qualifiers: Hypertension type: essential hypertension Qualified Code(s): I10 - Essential (primary) hypertension Is this a current diagnosis for this admission?: Yes (5) HLD (hyperlipidemia) Qualifiers: Hyperlipidemia type: unspecified Qualified Code(s): E78.5 - Hyperlipidemia, unspecified Is this a current diagnosis for this admission?: Yes (6) BPH (benign prostatic hyperplasia) Qualifiers: Lower urinary tract symptom presence: unspecified whether lower urinary tract symptoms present Qualified Code(s): N40.0 - Benign prostatic hyperplasia without lower urinary tract symptoms Is this a current diagnosis for this admission?: Yes (7) Osteoarthritis Qualifiers: Osteoarthritis location: multiple joints Osteoarthritis type: primary Qualified Code(s): M15.0 - Primary generalized (osteo)arthritis Is this a current diagnosis for this admission?: Yes (8) Rheumatoid arthritis Qualifiers: Laterality: unspecified laterality Is this a current diagnosis for this admission?: Yes - Time Time Spent with patient: 25-34 minutes Level of Care: IMCU Medications reviewed and adjusted accordingly: Yes Anticipated discharge: Home with Homehealth Within: Other - Inpatient Certification Based on my medical assessment, after consideration of the patient's comorbidities, presenting symptoms, or acuity I expect that the services needed warrant INPATIENT care.: Yes I certify that my determination is in accordance with my understanding of Medicare's requirements for reasonable and necessary INPATIENT services [42 CFR 412.3e].: Yes Medical Necessity: Significant Comorbidiites Make Outpatient Treatment Too Risky, Need Close Monitoring Due to Risk of Patient Decompensation, Need For IV Fluids, Need For Continuous Telemetry Monitoring, Need for IV Antibiotics, Risk of Complication if Not Cared For in Hospital, Risk of Diagnosis Which Will Require Inpatient Eval/Care/Monitoring Post Hospital Care: D/C Singing Teacher Documentation - Plan Summary Plan Summary: Continue IV Aztreonam coverage. Follow up on sputum and blood culture findings. Maintain on all other current medication management.
[2019-11-15] MEDS: RIVAROXABAN 10 MG TABLET PO SCH (21:11)
[2019-11-16] MEDS: AZTREONAM 1 GM in DEXTROSE 5%-WATER 50 ML IV SCH ×3 (02:23→17:09)
[2019-11-16] MEDS: NORMAL SALINE 1000 ML 1,000 ML IV PRN (02:24)
[2019-11-16] MEDS: PANTOPRAZOLE SODIUM 40 MG TABLET.DR PO SCH (05:03)
[2019-11-16] MEDS: FLUTICASONE/VILANTEROL 100-25 MCG/DOSE IH SCH (09:47)
[2019-11-16] MEDS: FOLIC ACID 1 MG TABLET PO SCH (09:49)
[2019-11-16] MEDS: TAMSULOSIN HCL 0.4 MG CAP.SR.24H PO SCH (09:49)
[2019-11-16] MEDS: DUTASTERIDE 0.5 MG CAPSULE PO SCH (09:49)
[2019-11-16] MEDS: FUROSEMIDE 20 MG TABLET PO SCH (09:49)
[2019-11-16] MEDS: ASPIRIN 81 MG TABLET, ENT COATED PO SCH (09:49)
[2019-11-16] MEDS: ATORVASTATIN CALCIUM 80 MG TABLET PO SCH (09:49)
[2019-11-16] MEDS: SOTALOL HCL 80 MG TABLET PO SCH ×2 (09:54→21:17)
--- NOTE | 2019-11-16 20:06 | PDOC PROGRESS REPORT ---
Subjective Progress Note for:: 11/16/19 Subjective:: Patient seen by the bedside he continues to improve Reason For Visit: CHILLS,COUGH,LEUKOCYTOSIS,H/O EMPHYSEMETOUS Physical Exam Vital Signs: Temp Pulse Resp BP Pulse Ox 97.5 F 59 L 16 109/56 L 100 11/16/19 15:22 11/16/19 15:22 11/16/19 15:22 11/16/19 15:22 11/16/19 15:22 Intake & Output 11/15/19 11/16/19 11/17/19 06:59 06:59 06:59 Intake Total 3028 2676 2258 Balance 3028 2676 2258 Weight 89 kg 88.6 kg General appearance: PRESENT: no acute distress Eye exam: PRESENT: PERRLA Respiratory exam: PRESENT: clear to auscultation karthik Cardiovascular exam: PRESENT: +S1, +S2 GI/Abdominal exam: PRESENT: soft Neurological exam: PRESENT: alert Results Laboratory Results: 11/14/19 05:12 11/14/19 05:12 11/13/19 17:28 Sputum Gram Stain - Final Impressions: Chest X-Ray 11/13/19 00:00 IMPRESSION: CHRONIC PLEURAL AND PARENCHYMAL SCARRING. NO ACUTE RADIOGRAPHIC FINDING IN THE CHEST. Assessment & Plan - Diagnosis (1) Acute bronchitis, bacterial Is this a current diagnosis for this admission?: Yes Plan: Continue IV aztreonam, he has allergy to beta-lactam, patient seem to be responding to the antibiotic - Time Time Spent with patient: 15-24 minutes Level of Care: IMCU
[2019-11-16] MEDS: RIVAROXABAN 10 MG TABLET PO SCH (21:17)
[2019-11-16] MEDS: DILTIAZEM HCL 90 MG TABLET PO SCH (21:17)
[2019-11-17] MEDS: AZTREONAM 1 GM in DEXTROSE 5%-WATER 50 ML IV SCH ×3 (01:39→17:50)
[2019-11-17] MEDS: PANTOPRAZOLE SODIUM 40 MG TABLET.DR PO SCH (06:38)
[2019-11-17] MEDS: FLUTICASONE/VILANTEROL 100-25 MCG/DOSE IH SCH (10:21)
[2019-11-17] MEDS: ASPIRIN 81 MG TABLET, ENT COATED PO SCH (10:23)
[2019-11-17] MEDS: ATORVASTATIN CALCIUM 80 MG TABLET PO SCH (10:23)
[2019-11-17] MEDS: SOTALOL HCL 80 MG TABLET PO SCH ×2 (10:23→22:05)
[2019-11-17] MEDS: DUTASTERIDE 0.5 MG CAPSULE PO SCH (10:23)
[2019-11-17] MEDS: TAMSULOSIN HCL 0.4 MG CAP.SR.24H PO SCH (10:23)
[2019-11-17] MEDS: FOLIC ACID 1 MG TABLET PO SCH (10:23)
[2019-11-17] MEDS: FUROSEMIDE 20 MG TABLET PO SCH (10:23)
--- NOTE | 2019-11-17 18:52 | PDOC PROGRESS REPORT ---
Subjective Progress Note for:: 11/17/19 Subjective:: Patient seen by the bedside he has no new complaints Reason For Visit: CHILLS,COUGH,LEUKOCYTOSIS,H/O EMPHYSEMETOUS Physical Exam Vital Signs: Temp Pulse Resp BP Pulse Ox 97.8 F 65 16 119/56 L 100 11/17/19 15:30 11/17/19 15:30 11/17/19 15:30 11/17/19 15:30 11/17/19 15:30 Intake & Output 11/16/19 11/17/19 11/18/19 06:59 06:59 06:59 Intake Total 2676 2458 1703 Balance 2676 2458 1707 Weight 88.6 kg 88.3 kg General appearance: PRESENT: no acute distress Eye exam: PRESENT: PERRLA Respiratory exam: PRESENT: clear to auscultation karthik Cardiovascular exam: PRESENT: +S1, +S2 GI/Abdominal exam: PRESENT: soft Neurological exam: PRESENT: alert Results Laboratory Results: 11/14/19 05:12 11/14/19 05:12 11/13/19 17:28 Sputum Gram Stain - Final 11/13/19 17:28 Sputum Sputum Culture - Final Pseudomonas Aeruginosa Normal Karen Impressions: Chest X-Ray 11/13/19 00:00 IMPRESSION: CHRONIC PLEURAL AND PARENCHYMAL SCARRING. NO ACUTE RADIOGRAPHIC FINDING IN THE CHEST. Assessment & Plan - Diagnosis (1) Acute bronchitis, bacterial Is this a current diagnosis for this admission?: Yes Plan: Continue IV aztreonam, he has allergy to beta-lactam, patient seem to be responding to the antibiotic - Time Time Spent with patient: 15-24 minutes Level of Care: IMCU
[2019-11-17] MEDS: DILTIAZEM HCL 90 MG TABLET PO SCH (22:05)
[2019-11-17] MEDS: RIVAROXABAN 10 MG TABLET PO SCH (22:05)
[2019-11-18] MEDS: AZTREONAM 1 GM in DEXTROSE 5%-WATER 50 ML IV SCH ×3 (02:43→17:28)
[2019-11-18] MEDS: PANTOPRAZOLE SODIUM 40 MG TABLET.DR PO SCH (06:29)
[2019-11-18] MEDS: FUROSEMIDE 20 MG TABLET PO SCH (10:19)
[2019-11-18] MEDS: FLUTICASONE/VILANTEROL 100-25 MCG/DOSE IH SCH (10:20)
[2019-11-18] MEDS: ASPIRIN 81 MG TABLET, ENT COATED PO SCH (10:20)
[2019-11-18] MEDS: ATORVASTATIN CALCIUM 80 MG TABLET PO SCH (10:20)
[2019-11-18] MEDS: TAMSULOSIN HCL 0.4 MG CAP.SR.24H PO SCH (10:20)
[2019-11-18] MEDS: FOLIC ACID 1 MG TABLET PO SCH (10:20)
[2019-11-18] MEDS: DUTASTERIDE 0.5 MG CAPSULE PO SCH (10:20)
[2019-11-18] MEDS: SOTALOL HCL 80 MG TABLET PO SCH ×2 (10:34→21:22)
--- NOTE | 2019-11-18 18:36 | PDOC PROGRESS REPORT ---
Subjective Progress Note for:: 11/18/19 Subjective:: Patient denied any fever or chills. No chest pain or difficulty with breathing. Ambulating on the floor and participating in self care. No nausea, vomiting or abdominal pain. Reason For Visit: CHILLS,COUGH,LEUKOCYTOSIS,H/O EMPHYSEMETOUS Physical Exam Vital Signs: Temp Pulse Resp BP Pulse Ox 97.7 F 55 L 16 102/44 L 96 11/18/19 04:16 11/18/19 04:16 11/18/19 04:16 11/18/19 04:16 11/18/19 04:16 Intake & Output 11/17/19 11/18/19 11/19/19 06:59 06:59 06:59 Intake Total 2458 1907 Balance 2458 1907 Weight 88.3 kg 87 kg Physical Exam: General appearance: PRESENT: no acute distress Head exam: PRESENT: atraumatic, normocephalic Eye exam: PRESENT: conjunctiva pink. ABSENT: pallor, scleral icterus Ear exam: PRESENT: normal external ear exam Mouth exam: PRESENT: moist Respiratory exam: PRESENT: decreased breath sounds - at lung bases, minimal rhonchi - end expiratory phase Cardiovascular exam: PRESENT: RRR. ABSENT: diastolic murmur, rubs, systolic murmur GI/Abdominal exam: PRESENT: normal bowel sounds, soft. ABSENT: distended, guarding, mass, organomegaly, rebound, tenderness Extremities exam: ABSENT: pedal edema Neurological exam: PRESENT: alert, awake, oriented to person, oriented to place, oriented to time, oriented to situation, CN II-XII grossly intact. ABSENT: motor sensory deficit Psychiatric exam: PRESENT: appropriate affect, normal mood. ABSENT: homicidal ideation, suicidal ideation Skin exam: PRESENT: dry, warm Results Laboratory Results: 11/14/19 05:12 11/14/19 05:12 11/13/19 17:28 Sputum Gram Stain - Final 11/13/19 17:28 Sputum Sputum Culture - Final Pseudomonas Aeruginosa Normal Karen Impressions: Chest X-Ray 11/13/19 00:00 IMPRESSION: CHRONIC PLEURAL AND PARENCHYMAL SCARRING. NO ACUTE RADIOGRAPHIC FINDING IN THE CHEST. Assessment & Plan - Diagnosis (1) Pseudomonas aeruginosa infection Is this a current diagnosis for this admission?: Yes Plan: Continue IV Aztreonam coverage for Pseudomonas aeruginosa for 7 days. (2) Acute bronchitis, bacterial Is this a current diagnosis for this admission?: Yes (3) COPD (chronic obstructive pulmonary disease) Qualifiers: COPD type: emphysema Emphysema type: unspecified Qualified Code(s): J43.9 - Emphysema, unspecified Is this a current diagnosis for this admission?: Yes (4) Chronic atrial fibrillation Is this a current diagnosis for this admission?: Yes (5) HTN (hypertension) Qualifiers: Hypertension type: essential hypertension Qualified Code(s): I10 - Essential (primary) hypertension Is this a current diagnosis for this admission?: Yes (6) HLD (hyperlipidemia) Qualifiers: Hyperlipidemia type: unspecified Qualified Code(s): E78.5 - Hyperlipidemia, unspecified Is this a current diagnosis for this admission?: Yes (7) BPH (benign prostatic hyperplasia) Qualifiers: Lower urinary tract symptom presence: unspecified whether lower urinary tract symptoms present Qualified Code(s): N40.0 - Benign prostatic hyperplasia without lower urinary tract symptoms Is this a current diagnosis for this admission?: Yes (8) Osteoarthritis Qualifiers: Osteoarthritis location: multiple joints Osteoarthritis type: primary Qualified Code(s): M15.0 - Primary generalized (osteo)arthritis Is this a current diagnosis for this admission?: Yes (9) Rheumatoid arthritis Qualifiers: Laterality: unspecified laterality Is this a current diagnosis for this admission?: Yes - Time Time Spent with patient: 25-34 minutes Level of Care: IMCU Medications reviewed and adjusted accordingly: Yes Anticipated discharge: SNF Within: Other - Inpatient Certification Based on my medical assessment, after consideration of the patient's comorbidities, presenting symptoms, or acuity I expect that the services needed warrant INPATIENT care.: Yes I certify that my determination is in accordance with my understanding of Medicare's requirements for reasonable and necessary INPATIENT services [42 CFR 412.3e].: Yes Medical Necessity: Significant Comorbidiites Make Outpatient Treatment Too Risky, Need Close Monitoring Due to Risk of Patient Decompensation, Need For IV Fluids, Need For Continuous Telemetry Monitoring, Need for IV Antibiotics, Risk of Complication if Not Cared For in Hospital, Risk of Diagnosis Which Will Require Inpatient Eval/Care/Monitoring 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 Follow up on blood culture findings.
[2019-11-18] MEDS: RIVAROXABAN 10 MG TABLET PO SCH (21:22)
[2019-11-18] MEDS: DILTIAZEM HCL 90 MG TABLET PO SCH (21:22)
[2019-11-19] MEDS: AZTREONAM 1 GM in DEXTROSE 5%-WATER 50 ML IV SCH ×3 (02:30→17:15)
[2019-11-19] MEDS: PANTOPRAZOLE SODIUM 40 MG TABLET.DR PO SCH (05:32)
--- NOTE | 2019-11-19 08:39 | RADIOLOGY REPORT (SQ) ---
EXAM DESCRIPTION: CHEST SINGLE VIEW COMPLETED DATE/TIME: 11/18/2019 7:56 pm REASON FOR STUDY: pseudomonas aeruginosa + sputum culture r/o pna COMPARISON: 11/13/2019. EXAM PARAMETERS: NUMBER OF VIEWS: One view. TECHNIQUE: Single frontal radiographic view of the chest acquired. RADIATION DOSE: NA LIMITATIONS: None. FINDINGS: LUNGS AND PLEURA: Chronic scarring. No infiltrates, masses or pneumothorax. No pleural ef fusion. MEDIASTINUM AND HILAR STRUCTURES: No masses. Contour normal. HEART AND VASCULAR STRUCTURES: Heart normal in size. Normal vasculature. BONES: No acute findings. HARDWARE: None in the chest. OTHER: No other significant finding. IMPRESSION: CHRONIC SCARRING. NO ACUTE RADIOGRAPHIC FINDING IN THE CHEST. TECHNICAL DOCUMENTATION: JOB ID: [id number] 2010 [employer]- All Rights Reserved Reading location - IP/workstation name: [email or web address]
--- NOTE | 2019-11-19 08:50 | PDOC PROGRESS REPORT ---
Subjective Progress Note for:: 11/19/19 Subjective:: Patient denied any fever or chills. No chest pain or difficulty with breathing. No nausea, vomiting or abdominal pain. Reason For Visit: CHILLS,COUGH,LEUKOCYTOSIS,H/O EMPHYSEMETOUS Physical Exam Vital Signs: Temp Pulse Resp BP Pulse Ox 98.3 F 58 L 16 110/54 L 94 11/19/19 04:00 11/19/19 07:00 11/19/19 04:00 11/19/19 04:00 11/19/19 04:00 Intake & Output 11/18/19 11/19/19 11/20/19 06:59 06:59 06:59 Intake Total 1907 Balance 1907 Weight 87 kg 87 kg Physical Exam: General appearance: PRESENT: no acute distress Head exam: PRESENT: atraumatic, normocephalic Eye exam: PRESENT: conjunctiva pink. ABSENT: pallor, scleral icterus Ear exam: PRESENT: normal external ear exam Mouth exam: PRESENT: moist Respiratory exam: PRESENT: decreased breath sounds - at lung bases, minimal rhonchi - end expiratory phase Cardiovascular exam: PRESENT: RRR. ABSENT: diastolic murmur, rubs, systolic murmur GI/Abdominal exam: PRESENT: normal bowel sounds, soft. ABSENT: distended, guarding, mass, organomegaly, rebound, tenderness Extremities exam: ABSENT: pedal edema Neurological exam: PRESENT: alert, awake, oriented to person, oriented to place, oriented to time, oriented to situation, CN II-XII grossly intact. ABSENT: motor sensory deficit Psychiatric exam: PRESENT: appropriate affect, normal mood. ABSENT: homicidal ideation, suicidal ideation Skin exam: PRESENT: dry, warm Results Laboratory Results: 11/14/19 05:12 11/14/19 05:12 11/13/19 17:09 Blood Blood Culture - Final NO GROWTH IN 5 DAYS 11/13/19 17:20 Blood Blood Culture - Final NO GROWTH IN 5 DAYS Impressions: Chest X-Ray 11/18/19 00:00 IMPRESSION: CHRONIC SCARRING. NO ACUTE RADIOGRAPHIC FINDING IN THE CHEST. 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 Emphysema type: unspecified Qualified Code(s): J43.9 - Emphysema, unspecified Is this a current diagnosis for this admission?: Yes (4) Chronic atrial fibrillation Is this a current diagnosis for this admission?: Yes (5) HTN (hypertension) Qualifiers: Hypertension type: essential hypertension Qualified Code(s): I10 - Essential (primary) hypertension Is this a current diagnosis for this admission?: Yes (6) HLD (hyperlipidemia) Qualifiers: Hyperlipidemia type: unspecified Qualified Code(s): E78.5 - Hyperlipidemia, unspecified Is this a current diagnosis for this admission?: Yes (7) BPH (benign prostatic hyperplasia) Qualifiers: Lower urinary tract symptom presence: unspecified whether lower urinary tract symptoms present Qualified Code(s): N40.0 - Benign prostatic hyperplasia without lower urinary tract symptoms Is this a current diagnosis for this admission?: Yes (8) Osteoarthritis Qualifiers: Osteoarthritis location: multiple joints Osteoarthritis type: primary Qualified Code(s): M15.0 - Primary generalized (osteo)arthritis Is this a current diagnosis for this admission?: Yes (9) Rheumatoid arthritis Qualifiers: Laterality: unspecified laterality Is this a current diagnosis for this admission?: Yes - Time Time Spent with patient: 25-34 minutes Level of Care: IMCU Medications reviewed and adjusted accordingly: Yes Anticipated discharge: Home Within: Other - Inpatient Certification Based on my medical assessment, after consideration of the patient's comorbidities, presenting symptoms, or acuity I expect that the services needed warrant INPATIENT care.: Yes I certify that my determination is in accordance with my understanding of Medicare's requirements for reasonable and necessary INPATIENT services [42 CFR 412.3e].: Yes Medical Necessity: Significant Comorbidiites Make Outpatient Treatment Too Risky, Need Close Monitoring Due to Risk of Patient Decompensation, Need For Continuous Telemetry Monitoring, Need for IV Antibiotics, Risk of Complication if Not Cared For in Hospital, Risk of Diagnosis Which Will Require Inpatient Eval/Care/Monitoring 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
[2019-11-19] MEDS: FUROSEMIDE 20 MG TABLET PO SCH (08:57)
[2019-11-19] MEDS: FOLIC ACID 1 MG TABLET PO SCH (09:37)
[2019-11-19] MEDS: SOTALOL HCL 80 MG TABLET PO SCH ×2 (09:37→21:44)
[2019-11-19] MEDS: ASPIRIN 81 MG TABLET, ENT COATED PO SCH (09:37)
[2019-11-19] MEDS: TAMSULOSIN HCL 0.4 MG CAP.SR.24H PO SCH (09:37)
[2019-11-19] MEDS: ATORVASTATIN CALCIUM 80 MG TABLET PO SCH (09:37)
[2019-11-19] MEDS: FLUTICASONE/VILANTEROL 100-25 MCG/DOSE IH SCH (09:37)
[2019-11-19] MEDS: DUTASTERIDE 0.5 MG CAPSULE PO SCH (09:38)
[2019-11-19] MEDS: DILTIAZEM HCL 90 MG TABLET PO SCH (21:43)
[2019-11-19] MEDS: RIVAROXABAN 10 MG TABLET PO SCH (21:44)
[2019-11-20] MEDS: AZTREONAM 1 GM in DEXTROSE 5%-WATER 50 ML IV SCH ×2 (02:01→09:22)
[2019-11-20] MEDS: PANTOPRAZOLE SODIUM 40 MG TABLET.DR PO SCH (05:56)
[2019-11-20] MEDS: FUROSEMIDE 20 MG TABLET PO SCH (09:21)
[2019-11-20] MEDS: DUTASTERIDE 0.5 MG CAPSULE PO SCH (09:22)
[2019-11-20] MEDS: FOLIC ACID 1 MG TABLET PO SCH (09:22)
[2019-11-20] MEDS: TAMSULOSIN HCL 0.4 MG CAP.SR.24H PO SCH (09:22)
[2019-11-20] MEDS: FLUTICASONE/VILANTEROL 100-25 MCG/DOSE IH SCH (09:22)
[2019-11-20] MEDS: ASPIRIN 81 MG TABLET, ENT COATED PO SCH (09:22)
[2019-11-20] MEDS: SOTALOL HCL 80 MG TABLET PO SCH (09:23)
[2019-11-20] MEDS: ATORVASTATIN CALCIUM 80 MG TABLET PO SCH (09:24)
[2019-11-20 10:18] VITALS: BP 122/64
--- NOTE | 2019-11-21 04:17 | PDOC DISCHARGE SUMMARY ---
Impression - Admit/DC Date/PCP Admission Date/Primary Care Provider: 11/13/19 16:17 MAIRA MARIANO Discharge Date: 11/20/19 - Discharge Diagnosis (1) Pseudomonas aeruginosa infection Is this a current diagnosis for this admission?: Yes (2) Acute bronchitis, bacterial Is this a current diagnosis for this admission?: Yes (3) COPD (chronic obstructive pulmonary disease) Is this a current diagnosis for this admission?: Yes (4) Chronic atrial fibrillation Is this a current diagnosis for this admission?: Yes (5) HTN (hypertension) Is this a current diagnosis for this admission?: Yes (6) HLD (hyperlipidemia) Is this a current diagnosis for this admission?: Yes (7) BPH (benign prostatic hyperplasia) Is this a current diagnosis for this admission?: Yes (8) Osteoarthritis Is this a current diagnosis for this admission?: Yes (9) Rheumatoid arthritis Is this a current diagnosis for this admission?: Yes - Assessment Summary: Patient was admitted due to sudden onset shaking chills, worsening productive cough and concern for possible pneumonia with underlying interstitial lung disease and COPD. His antibiotic allergy spectrum made outpatient treatment with oral antibiotic almost impossible. His sputum culture grew pseudomonas aeruginosa. He was treated adequately with IV Aztreonam. His chest X ray did not suggest any acute pulmonary process. He will be discharged home today and follow up in the office as instructed upon discharge. - Additional Information Resuscitation Status: Full Code Discharge Diet: Cardiac Discharge Activity: Activity As Tolerated, Slowly Increase Activity Referrals: JAJA PEREZ FNP-C [Primary Care Provider] - SAMUEL AC MD [ACTIVE STAFF] - 12/03/19 10:00 am Home Medications: Aspirin [Aspir-Low] 81 mg PO DAILY 11/13/19 Diltiazem HCl [Cardizem 90 mg Tablet] 1 tab PO QPM 11/13/19 Diphenoxylate HCl/Atrop Sulf [Lomotil 2.5 mg Tablet] 1 tab PO ASDIR PRN 11/13/19 Dutasteride 0.5 mg PO DAILY 11/13/19 Fluticasone Propionate [Flonase Nasal [place] 50 Mcg/[place] 16 gm] 2 sprays NASL QPM 11/13/19 Fluticasone/Vilanterol [Breo 100-25 Mcg Ellipta 14 Dose/Dpi] 1 inh IH DAILY 11/13/19 Folic Acid 1 mg PO DAILY 11/13/19 Furosemide [Lasix 20 mg Tablet] 20 mg PO QAM 11/13/19 Methotrexate Sodium [Rheumatrex 2.5 mg Tablet] 15 mg PO .EVERY OTHER Monday11/13/19 Nitroglycerin [Nitrostat 0.4 mg (1/150 Gr) Tabs 25/Bottle] 1 tab SL Q5MP PRN 11/13/19 Rivaroxaban [Xarelto] 20 mg PO QPM 11/13/19 Rosuvastatin Calcium 20 mg PO DAILY 11/13/19 Sotalol HCl [Betapace 80 mg Tablet] 1 tab PO Q12 11/13/19 Tamsulosin HCl [Flomax] 0.4 mg PO DAILY 11/13/19 Vit C/E/Zn/Coppr/Lutein/Zeaxan [Preservision Areds 2 Softgel] 1 each PO Q12 11/13/19 History of Present Illiness History of Present Illness: KEIRY IVERSON is a 84 year old male patient known to practice who presented with sudden onset of shaking chills. Patient reported that he travelled to [place] for lunch with spouse and upon arriving at the restaurant he suddenly started having shaking chills to the extent that he was unable to feed himself. He was driven from the restaurant directly to my office. He reported associated cold feeling, weakness,fatigue, and wheezing. He reported feeling slowed down all of today. His initial evaluation in the office was significant for low grade fever at 99.6F audible wheezing, rhonchi, wet rales and crackles. His CBC with diff revealed significant leukocytosis with left shift. In view of his leukocyto sis, extensive limitation in oral antibiotic choice due to his allergy history and recent completion of a 10 days course of oral Levofloxacin, he was advised hospitalization for further evaluation and management. His morbidities are as listed below. Hospital Course Hospital Course: Patient was admitted due to sudden onset shaking chills, leukocytosis, and worsening productive cough and concern for possible pneumonia with underlying interstitial lung disease and COPD. His antibiotic allergy spectrum made outpatient treatment with oral antibiotic almost impossible. His sputum culture grew pseudomonas aeruginosa. He was treated adequately with IV Aztreonam. His chest X ray did not suggest any acute pulmonary process. He will be discharged home today and follow up in the office as instructed upon discharge. Physical Exam Vital Signs: Temp Pulse Resp BP Pulse Ox 98.0 F 60 18 142/66 H 96 11/20/19 07:22 11/20/19 07:22 11/20/19 07:22 11/20/19 07:22 11/20/19 07:22 Intake & Output 11/19/19 11/20/19 11/21/19 06:59 06:59 06:59 Intake Total 200 Balance 200 Weight 87 kg 87.4 kg General appearance: PRESENT: no acute distress Head exam: PRESENT: atraumatic, normocephalic Eye exam: PRESENT: conjunctiva pink. ABSENT: pallor, scleral icterus Ear exam: PRESENT: normal external ear exam Mouth exam: PRESENT: moist Respiratory exam: PRESENT: minimal rhonchi - end expiratory phase Cardiovascular exam: PRESENT: RRR. ABSENT: diastolic murmur, rubs, systolic murmur GI/Abdominal exam: PRESENT: normal bowel sounds, soft. ABSENT: distended, guarding, mass, organomegaly, rebound, tenderness Extremities exam: ABSENT: pedal edema Neurological exam: PRESENT: alert, awake, oriented to person, oriented to place, oriented to time, oriented to situation, CN II-XII grossly intact. ABSENT: motor sensory deficit Psychiatric exam: PRESENT: appropriate affect, normal mood. ABSENT: homicidal ideation, suicidal ideation Skin exam: PRESENT: dry, warm Results Laboratory Results: WBC 12.2 10^3/uL (4.0-10.5) H 11/14/19 05:12 RBC 3.38 10^6/uL (4.35-5.55) L 11/14/19 05:12 Hgb 10.6 g/dL (13.5-17.0) L 11/14/19 05:12 Hct 31.0 % (37.9-51.0) L 11/14/19 05:12 MCV 92 fl (80-97) 11/14/19 05:12 MCH 31.3 pg (27.0-33.4) 11/14/19 05:12 MCHC 34.2 g/dL (32.0-36.0) 11/14/19 05:12 RDW 16.0 % (11.5-14.0) H 11/14/19 05:12 Plt Count 233 10^3/uL (150-450) 11/14/19 05:12 Lymph % (Auto) 18.3 % (13-45) 11/14/19 05:12 [place] % (Auto) 7.8 % (3-13) 11/14/19 05:12 Eos % (Auto) 0.8 % (0-6) 11/14/19 05:12 Baso % (Auto) 0.2 % (0-2) 11/14/19 05:12 Absolute Neuts (auto) 8.9 10^3/uL (1.7-8.2) H 11/14/19 05:12 Absolute Lymphs (auto) 2.2 10^3/uL (0.5-4.7) 11/14/19 05:12 Absolute Monos (auto) 1.0 10^3/uL (0.1-1.4) 11/14/19 05:12 Absolute Eos (auto) 0.1 10^3/uL (0.0-0.6) 11/14/19 05:12 Absolute Basos (auto) 0.0 10^3/uL (0.0-0.2) 11/14/19 05:12 Seg Neutrophils % 72.9 % (42-78) 11/14/19 05:12 Sodium 136.8 mmol/L (137-145) L 11/14/19 05:12 Potassium 3.6 mmol/L (3.6-5.0) 11/14/19 05:12 Chloride 103 mmol/L (98-107) 11/14/19 05:12 Carbon Dioxide 26 mmol/L (22-30) 11/14/19 05:12 Anion Gap 8 (5-19) 11/14/19 05:12 BUN 11 mg/dL (7-20) 11/14/19 05:12 Creatinine 0.54 mg/dL (0.52-1.25) 11/14/19 05:12 Est GFR ( Amer) > 60 (>60) 11/14/19 05:12 Est GFR (MDRD) Non-Af > 60 (>60) 11/14/19 05:12 Glucose 113 mg/dL (75-110) H 11/14/19 05:12 Calcium 8.0 mg/dL (8.4-10.2) L 11/14/19 05:12 Total Bilirubin 0.8 mg/dL (0.2-1.3) 11/14/19 05:12 Direct Bilirubin 0.1 mg/dL (0.0-0.4) 11/14/19 05:12 Neonat Total Bilirubin Not Reportable 11/14/19 05:12 Neonat Direct Bilirubin Not Reportable 11/14/19 05:12 Neonat Indirect Bili Not Reportable 11/14/19 05:12 AST 20 U/L (17-59) 11/14/19 05:12 ALT 13 U/L (<50) 11/14/19 05:12 Alkaline Phosphatase 63 U/L (38-126) 11/14/19 05:12 Total Protein 5.9 g/dL (6.3-8.2) L 11/14/19 05:12 Albumin 2.9 g/dL (3.5-5.0) L 11/14/19 05:12 Impressions: Chest X-Ray 11/13/19 00:00 IMPRESSION: CHRONIC PLEURAL AND PARENCHYMAL SCARRING. NO ACUTE RADIOGRAPHIC FINDING IN THE CHEST. Chest X-Ray 11/18/19 00:00 IMPRESSION: CHRONIC SCARRING. NO ACUTE RADIOGRAPHIC FINDING IN THE CHEST. Plan Health Concerns: High risk for readmission due to underlying lung disease and profound antibiotic spectrum allergy. Plan of Treatment: Continue close monitoring and collaborative care with his pulmonary care teams. Goals: Reduce readmission risk level. Time Spent: Greater than 30 Minutes - care coordination discussion with patient and spouse. Stroke Is this a Stroke Patient?: No Acute Heart Failure - Is this a Heart Failure Patient?: No
== END 2019-11-20 10:50 | disposition home or self-care (01) | DRG 202 ==
LOC: 3S 16:17
PROVIDERS: ADMIT Internal Medicine Geriatric Medicine; ATTEND Internal Medicine Geriatric Medicine
DX: J20.9 Acute bronchitis, unspecified (principal); I48.20 Chronic atrial fibrillation, unspecified; B96.5 Pseudomonas (aeruginosa) (mallei) (pseudomallei) as the cause of diseases classified elsewhere; J43.9 Emphysema, unspecified; E78.5 Hyperlipidemia, unspecified; I10 Essential (primary) hypertension; M06.9 Rheumatoid arthritis, unspecified; M15.0 Primary generalized (osteo)arthritis; F32.9 Major depressive disorder, single episode, unspecified; N40.0 Benign prostatic hyperplasia without lower urinary tract symptoms; G47.30 Sleep apnea, unspecified; Z88.0 Allergy status to penicillin; Z79.82 Long term (current) use of aspirin; Z88.1 Allergy status to other antibiotic agents; Z79.899 Other long term (current) drug therapy; Z79.01 Long term (current) use of anticoagulants; Z85.828 Personal history of other malignant neoplasm of skin; Z90.49 Acquired absence of other specified parts of digestive tract; Z95.5 Presence of coronary angioplasty implant and graft; Z91.011 Allergy to milk products; Z88.8 Allergy status to other drugs, medicaments and biological substances; H35.3290 Exudative age-related macular degeneration, unspecified eye, stage unspecified; Z83.3 Family history of diabetes mellitus; Z80.6 Family history of leukemia
CPT/HCPCS: 36415; 71045; 71046; 80053; 85025; 87040; 87070; 87077; 87186; 87205; J3490; J7030; J7060

== ENCOUNTER → 2020-01-08 | Outpatient (CLI) | payer MEDICARE ==
[2020-01-08 09:05] LABS: HEMATOCRIT 37.1 % (37.9-51.0); HEMOGLOBIN 12.8 g/dL (13.5-17.0); MEAN CORPUSCULAR HEMOGLOBIN 31.7 pg (27.0-33.4); MEAN CORPUSCULAR HGB CONC 34.5 g/dL (32.0-36.0); MEAN CORPUSCULAR VOLUME 92 fl (80-97); PLATELET COUNT 260 10^3/uL (150-450); RED BLOOD COUNT 4.03 10^6/uL (4.35-5.55); RED CELL DISTRIBUTION WIDTH 14.7 % (11.5-14.0); WHITE BLOOD COUNT 7.2 10^3/uL (4.0-10.5)
[2020-01-08 09:07] LABS: APPEARANCE,URINE CLEAR; BILIRUBIN,URINE NEGATIVE (NEGATIVE); COLOR,URINE YELLOW; GLUCOSE, URINE NEGATIVE (NEGATIVE); KETONES,URINE NEGATIVE (NEGATIVE); LEUKOCYTE ESTERASE,URINE NEGATIVE (NEGATIVE); NITRITE,URINE NEGATIVE (NEGATIVE); PROTEIN,URINE NEGATIVE (NEGATIVE); URINE SPECIFIC GRAVITY 1.009; UROBILINOGEN,URINE NEGATIVE mg/dL (<2.0)
[2020-01-08 09:36] LABS: ALKALINE PHOSPHATASE 76 U/L (38-126); ANION GAP 5 (5-19); ASPARTATE AMINO TRANSFERASE 29 U/L (17-59); BILIRUBIN,TOTAL 0.9 mg/dL (0.2-1.3); BLOOD UREA NITROGEN 10 mg/dL (7-20); CARBON DIOXIDE 32 mmol/L (22-30); CHLORIDE 100 mmol/L (98-107); GLUCOSE 126 mg/dL (75-110); POTASSIUM 4.9 mmol/L (3.6-5.0); TOTAL PROTEIN 7.2 g/dL (6.3-8.2)
== END ==
LOC: OD 08:11
PROVIDERS: ATTEND Internal Medicine Cardiovascular Disease
DX: I10 Essential (primary) hypertension (principal); E87.5 Hyperkalemia; D53.8 Other specified nutritional anemias; I47.1 Supraventricular tachycardia; I25.9 Chronic ischemic heart disease, unspecified; Z79.01 Long term (current) use of anticoagulants; Z79.899 Other long term (current) drug therapy
CPT/HCPCS: 36415; 80048; 80076; 81001; 82272; 83735; 85027; 85730

== ENCOUNTER → 2020-04-07 | Outpatient (CLI) | payer MEDICARE ==
[2020-04-07 09:28] LABS: HEMATOCRIT 36.9 % (37.9-51.0); HEMOGLOBIN 12.4 g/dL (13.5-17.0); MEAN CORPUSCULAR HEMOGLOBIN 30.8 pg (27.0-33.4); MEAN CORPUSCULAR HGB CONC 33.7 g/dL (32.0-36.0); MEAN CORPUSCULAR VOLUME 91 fl (80-97); PLATELET COUNT 289 10^3/uL (150-450); RED BLOOD COUNT 4.05 10^6/uL (4.35-5.55); RED CELL DISTRIBUTION WIDTH 14.6 % (11.5-14.0); WHITE BLOOD COUNT 7.2 10^3/uL (4.0-10.5)
[2020-04-07 09:32] LABS: APPEARANCE,URINE CLEAR; BILIRUBIN,URINE NEGATIVE (NEGATIVE); GLUCOSE, URINE NEGATIVE (NEGATIVE); KETONES,URINE NEGATIVE (NEGATIVE); LEUKOCYTE ESTERASE,URINE NEGATIVE (NEGATIVE); NITRITE,URINE NEGATIVE (NEGATIVE); PROTEIN,URINE NEGATIVE (NEGATIVE); URINE SPECIFIC GRAVITY 1.019; UROBILINOGEN,URINE NEGATIVE mg/dL (<2.0)
[2020-04-07 09:33] LABS: COLOR,URINE YELLOW
[2020-04-07 09:49] LABS: ALBUMIN 3.8 g/dL (3.5-5.0); ALKALINE PHOSPHATASE 78 U/L (38-126); ANION GAP 9 (5-19); ASPARTATE AMINO TRANSFERASE 21 U/L (17-59); BILIRUBIN,TOTAL 0.9 mg/dL (0.2-1.3); BLOOD UREA NITROGEN 12 mg/dL (7-20); CALCIUM 8.5 mg/dL (8.4-10.2); CARBON DIOXIDE 28 mmol/L (22-30); CHLORIDE 101 mmol/L (98-107); CHOLESTEROL 109.42 mg/dL (0-200); GLUCOSE 131 mg/dL (75-110); TRIGLYCERIDES 87 mg/dL (<150)
[2020-04-07 09:59] LABS: DIRECT LDL 58 mg/dL (<100)
== END ==
LOC: OD 08:47
PROVIDERS: ATTEND Physician Assistant
DX: I10 Essential (primary) hypertension (principal); E87.5 Hyperkalemia; D53.8 Other specified nutritional anemias; I47.1 Supraventricular tachycardia; Z79.899 Other long term (current) drug therapy; Z79.01 Long term (current) use of anticoagulants; I25.9 Chronic ischemic heart disease, unspecified; E78.00 Pure hypercholesterolemia, unspecified
CPT/HCPCS: 36415; 80048; 80061; 80076; 81001; 82272; 83735; 85027; 85730

== ENCOUNTER 2020-04-21 12:35 | Inpatient (IN) | payer MEDICARE ==
[2020-04-21] MEDS ORDERED: ONDANSETRON HCL INJ/PF 4 MG/2 ML SDV IV ONE (13:21)
--- NOTE | 2020-04-21 13:25 | ER Document Report ---
ED Medical Screen (RME) - General Chief Complaint: Dizziness Stated Complaint: DIZZINESS Time Seen by Provider: 04/21/20 13:15 Primary Care Provider: SALVADOR YAO MD [Primary Care Provider] - Follow up as needed TRAVEL OUTSIDE OF THE [place] IN LAST 30 DAYS: No - HPI Notes: 04/21/20 13:20 84-year-old male came to the ER via EMS with a history of A. fib on anticoagulants , hypertension, RA, COPD with complaints of generalized weakness, chest tightness, shortness of breath, dizziness and vomiting that started at 10 AM this morning. Patient states that he got up and ate breakfast, then showered and states that after he showered he was having issues with standing up without feeling dizzy, chest tightness, vomiting and shortness of breath. Denies any fevers or chills. His states that his doctor thinks he may have had a "small heart attack" but is unsure. Patient is anticoagulated on Eliquis for his chronic A. fib. I have greeted and performed a rapid initial assessment of this patient. A comprehensive ED assessment and evaluation of the patient, analysis of test results and completion of the medical decision making process will be conducted by additional ED providers. PHYSICAL EXAMINATION: GENERAL: chronically ill , well-nourished and in mild distress HEAD: Atraumatic, normocephalic. EYES: Pupils equal round extraocular movements intact, conjunctiva are normal. NECK: Normal range of motion CV: irregular LUNGS: No respiratory distress Musculoskeletal: Normal range of motion NEUROLOGICAL: Normal speech, Awake alert and orientated x3 - Related Data Allergies/Adverse Reactions: acetaminophen [From Tylenol] Allergy (Verified 11/28/19 13:04) amoxicillin Allergy (Verified 11/28/19 13:04) erythromycin base Allergy (Verified 11/28/19 13:04) tetracycline [Tetracycline] Allergy (Verified 11/28/19 13:04) dairy products Allergy (Uncoded 11/28/19 13:04) Past Medical History - Past Medical History Cardiac Medical History: Reports: Hx Coronary Artery Disease, Hx Heart Attack, Hx Hypercholesterolemia, Hx Hypertension Pulmonary Medical History: Reports: Hx Bronchitis, Hx COPD, Hx Pneumonia Denies: Hx Asthma Neurological Medical History: Denies: Hx Cerebrovascular Accident, Hx Seizures Endocrine Medical History: Reports: Hx Diabetes Mellitus Type 2 Renal/ Medical History: Denies: Hx Peritoneal Dialysis Malignancy Medical History: Reports Hx Skin Cancer Musculoskeltal Medical History: Reports Hx Arthritis - RA Psychiatric Medical History: Reports: Hx Depression Past Surgical History: Reports: Hx Appendectomy, Hx Cardiac Catheterization - with stents, Hx Coronary Stent, Hx Orthopedic Surgery - facial, right hand - Immunizations Hx Diphtheria, Pertussis, Tetanus Vaccination: Yes Physical Exam - Vital signs Vitals: Temp Pulse Resp BP Pulse Ox 96.8 F L 76 20 121/71 99 04/21/20 12:39 04/21/20 12:39 04/21/20 12:39 04/21/20 12:39 04/21/20 12:39 Course - Vital Signs Vital signs: Temp Pulse Resp BP Pulse Ox 96.8 F L 76 20 121/71 99 04/21/20 12:39 04/21/20 12:39 04/21/20 12:39 04/21/20 12:39 04/21/20 12:39 Doctor's Discharge - Discharge Referrals: SALVADOR YAO MD [Primary Care Provider] - Follow up as needed
--- NOTE | 2020-04-21 14:26 | ER Document Report ---
ED General - General Chief Complaint: Dizziness Stated Complaint: DIZZINESS Time Seen by Provider: 04/21/20 13:15 Primary Care Provider: SALVADOR YAO MD [Primary Care Provider] - Follow up as needed TRAVEL OUTSIDE OF THE [place] IN LAST 30 DAYS: No - HPI Notes: Patient is an 84-year-old male who presents to the emergency department for evaluation. He states he got up and got a hot shower. He states after getting out of the shower he started feeling very dizzy and lightheaded, stated he developed some chest tightness. He points to the center of his chest, states it was nonradiating. He was able to continue to get dressed, when on the living room to lie down. He states that his chest pain entirely resolved. He still felt slightly weak, but was able to go about his morning. He had taken all of his medications as prescribed. He was out running errands, while in line at the pharmacy he stated the entire world started to spin. He started to feel very weak. He had a near syncopal episode. He lowered himself to the ground slowly, scraping his right forearm on the counter of the pharmacy desk. He did not hit his head. He states he did not have a full syncopal episode. He states that he was spinning for some time, but denies any spinning sensation now. He states he has had some nausea but no emesis. He states that he just feels poorly "all over." He really cannot qualify it for me any better. Again he has not had any recurrence of his chest pain, denies any vertiginous symptoms at this time. 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 No fevers or chills. He is eating and drinking normally. He denies any symptoms yesterday. He denies any tinnitus or acute hearing loss. - Related Data Allergies/Adverse Reactions: acetaminophen [From Tylenol] Allergy (Verified 04/21/20 17:38) amoxicillin Allergy (Verified 04/21/20 17:38) erythromycin base Allergy (Verified 04/21/20 17:38) tetracycline [Tetracycline] Allergy (Verified 04/21/20 17:38) dairy products Allergy (Uncoded 04/21/20 17:38) Home Medications: Aspirin 81 mg daily, Breo 100/25 mcg daily, diltiazem 90 mg as needed, dutasteride 0.5 mg daily, folate 1 mg daily, Lasix 20 mg daily, Lomotil as needed, methotrexate 2.5 mg as directed, PreserVision 2 capsules twice a day, rosuvastatin 20 mg daily, sotalol 80 mg twice a day, Flomax 0.4 mg daily, Xarelto 20 mg daily Past Medical History - General Information source: Patient - Social History Smoking Status: Former Smoker Family History: Reviewed & Not Pertinent - Past Medical History Cardiac Medical History: Reports: Hx Atrial Fibrillation, Hx Coronary Artery Disease, Hx Heart Attack, Hx Hypercholesterolemia, Hx Hypertension Pulmonary Medical History: Reports: Hx Bronchitis, Hx COPD, Hx Pneumonia Denies: Hx Asthma EENT Medical History: Reports: Eyes - Macular degeneration Neurological Medical History: Denies: Hx Cerebrovascular Accident, Hx Seizures Renal/ Medical History: Denies: Hx Peritoneal Dialysis Malignancy Medical History: Reports Hx Skin Cancer Musculoskeletal Medical History: Reports Hx Arthritis - Rheumatoid arthritis Psychiatric Medical History: Reports: Hx Depression Past Surgical History: Reports: Hx Appendectomy, Hx Cardiac Catheterization - with stents, Hx Coronary Stent, Hx Orthopedic Surgery - facial, right hand - Immunizations Hx Diphtheria, Pertussis, Tetanus Vaccination: Yes Hx Pneumococcal Vaccination: 07/09/14 Review of Systems - Review of Systems Constitutional: See HPI Cardiovascular: See HPI Gastrointestinal: See HPI Skin: See HPI Neurological/Psychological: See HPI -: Yes All other systems reviewed and negative Physical Exam - Vital signs Vitals: Temp Pulse Resp BP Pulse Ox 96.8 F L 76 20 121/71 99 04/21/20 12:39 04/21/20 12:39 04/21/20 12:39 04/21/20 12:39 04/21/20 12:39 - Notes Notes: This is an 84-year-old gentleman who appears his stated age. He is nontoxic in appearance, but does appear to not feel well. He was lying in a semi-mccallum's position, eyes closed, but he opens them to verbal stimuli. Intermittently coughing. Vital signs reviewed, please refer to chart. Head is normocephalic, atraumatic. Pupils equal round, reactive to light. Neck is supple without meningismus. Heart is irregularly irregular. Lungs are clear to auscultation bilaterally. Abdomen is soft, nontender, normoactive bowel sounds throughout. Extremities without cyanosis, clubbing. Posterior calves are nontender. Peripheral pulses are equal. Skin is cool and mildly diaphoretic. He is a 4 cm skin tear noted to the proximal dorsal right forearm, no active bleeding or foreign body noted. There is some avulsion of skin noted. Patient is awake, alert, oriented x3. Cranial nerves II - XII are grossly intact, with the exception of some visual field deficits which are chronic per patient, without other focal neurological deficits. Strength is plus 5 out of 5 bilateral upper and lower extremities. Sensation is intact. Reflexes symmetrical. Rapid alternating movements, [id number] are intact. Patient has some difficulty wi th [id number], primarily he states secondary to his macular degeneration and difficulty seeing the superior aspect of his visual acosta. Course - Re-evaluation Re-evalutation: 04/21/20 14:34 Patient presents to the emergency department for evaluation. He is placed on a cardiac monitor technician, labs are obtained. He was treated with Zofran. His neurological exam is largely normal, but I am concerned about the sudden onset of vertigo in this 84-year-old gentleman without history. He states that his vertigo has resolved, but I am concerned about the possibility of a posterior circulatory stroke. Patient's blood pressure is borderline at 99/76, heart rates between 101 120. Tetanus is up-to-date. Awaiting laboratory inve stigations, we will continue to monitor. 04/21/20 14:48 Notified by PCT that they were unable to perform orthostatic vital signs. They recorded supine vitals, patient sat up and immediately became extremely dizzy. She did remark that his heart rate was in the 120s at that point. He asked to lie back down. I will go ahead and give him a liter of normal saline. 04/21/20 16:58 Patient feeling overall weak, states he had a bout of nausea earlier, mildly lightheaded and dizzy, but he denies any vertiginous sensation any longer. He denies feeling or syncopal, he does states he feels poorly. His heart rate has remained elevated, between 98 and 120. His blood pressure is currently 108/80. I gave him mild fluid resuscitation but he does have a CHF history. I am concerned about the possibility of sepsis now in this patient. Blood cultures and lactic are ordered. I am still awaiting his urinalysis. Patient states he would try to provide a sample. Again patient remained stable but still is feeling poorly, we will continue to monitor. 04/21/20 19:03 Patient was unable to urinate. Decision was made to place Rdz catheter. Patient had over 500 cc of urine out. There does not appear to be any signs of infection. Patient remains mildly tachycardic and has borderline blood pressu res. His lactate is normal. He continues to have a normal neurological exam, his CT scan is negative. I do not have a clear etiology for his symptoms. Cultures are pending. I spoke with Dr. Escobar, who will admit the patient. He has requested rapid COVID test, currently discussing with nursing bridges and buildings supervisor. - Vital Signs Vital signs: Temp Pulse Resp BP Pulse Ox 96.8 F L 99 17 108/80 91 L 04/21/20 12:39 04/21/20 14:46 04/21/20 16:38 04/21/20 16:38 04/21/20 16:38 - Laboratory Result Diagrams: 04/21/20 14:19 04/21/20 14:19 Laboratory results interpreted by me: 04/21/20 04/21/20 04/21/20 14:19 14:19 14:19 WBC 12.8 H RBC 3.93 L Hgb 12.2 L Hct 36.1 L RDW 14.8 H Absolute Neuts (auto) 10.5 H Seg Neutrophils % 82.0 H PT Sodium 136.3 L Glucose 178 H NT-Pro-B Natriuret Pep 2510 H Lipase 342.4 H 04/21/20 14:19 WBC RBC Hgb Hct RDW Absolute Neuts (auto) Seg Neutrophils % PT 18.2 H Sodium Glucose NT-Pro-B Natriuret Pep Lipase - Diagnostic Test Radiology reviewed: Reports reviewed Radiology results interpreted by me: 04/21/20 19:[address] 04/21/20 13:16 IMPRESSION: MILD CHRONIC CHANGES OF ATROPHY AND MICROVASCULAR ISCHEMIA. NO ACUTE PROCESS. SINUSITIS. EVIDENCE OF ACUTE STROKE: NO. Chest X-Ray 04/21/20 14:49 IMPRESSION: Stable, chronic changes. - EKG Interpretation by Me Additional EKG results interpreted by me: 04/21/20 19:04 Atrial fibrillation with a rate of 111 bpm. Normal axis. Right bundle branch block. Discharge - Discharge Clinical Impression: Generalized weakness, Near syncope, Urinary retention Condition: Stable Disposition: ADMITTED INPATIENT Unit Admitted: IMCU Referrals: SALVADOR YAO MD [Primary Care Provider] - Follow up as needed
--- NOTE | 2020-04-21 14:34 | EKG REPORT ---
SEVERITY:- ABNORMAL ECG - ATRIAL FIBRILLATION RIGHT BUNDLE BRANCH BLOCK : Confirmed by: Jean Carlos Mna MD 21-Apr-2020 14:32:59
[2020-04-21 14:36] LABS: ABSOLUTE BASOPHILS # (AUTO) 0.1 10^3/uL (0.0-0.2); ABSOLUTE LYMPHOCYTES (AUTO) 1.7 10^3/uL (0.5-4.7); ABSOLUTE MONOCYTES (AUTO) 0.5 10^3/uL (0.1-1.4); ABSOLUTE NEUT (AUTO) 10.5 10^3/uL (1.7-8.2); EOSINOPHILS % (AUTO) 0.1 % (0-6); HEMATOCRIT 36.1 % (37.9-51.0); HEMOGLOBIN 12.2 g/dL (13.5-17.0); LYMPHOCYTES % (AUTO) 13.2 % (13-45); MEAN CORPUSCULAR HGB CONC 33.8 g/dL (32.0-36.0); MEAN CORPUSCULAR VOLUME 92 fl (80-97); MONOCYTES % (AUTO) 3.7 % (3-13); PLATELET COUNT 236 10^3/uL (150-450); RED BLOOD COUNT 3.93 10^6/uL (4.35-5.55); RED CELL DISTRIBUTION WIDTH 14.8 % (11.5-14.0); TOTAL CELLS COUNTED % (AUTO) 100 %; WHITE BLOOD COUNT 12.8 10^3/uL (4.0-10.5)
[2020-04-21 14:40] LABS: PROTHROMBIN TIME 18.2 SEC (11.4-15.4)
[2020-04-21 14:41] LABS: INTERNATIONAL RATION (INR) 1.49
--- NOTE | 2020-04-21 14:47 | RADIOLOGY REPORT (SQ) ---
EXAM DESCRIPTION: CT HEAD WITHOUT IMAGES COMPLETED DATE/TIME: 04/21/2020 2:39 pm REASON FOR STUDY: sudden onset dizziness, vomiting x 3 hrs COMPARISON: None. TECHNIQUE: Axial images acquired through the brain without intravenous contrast. Images reviewed wi th bone, brain and subdural windows. Additional sagittal and coronal reconstructions were generated. Images stored on PACS. All CT scanners at this facility use dose modulation, iterative reconstruction, and/or weight based d osing when appropriate to reduce radiation dose to as low as reasonably achievable (ALARA). [facility]: Dose Right [facility]: CareDose [facility]: Dose Right [facility]: Teradose 4D [facility]: Smart Zapya RADIATION DOSE: CT Rad equipment meets quality standard of care and radiation dose reduction techniq ues were employed. CTDIvol: 53.2 mGy. DLP: 1070 mGy-cm. mGy. LIMITATIONS: None. FINDINGS: VENTRICLES: Prominent. CEREBRUM: No masses. No hemorrhage. No midline shift. Areas of low density in the white matter mos t likely due to chronic micro-vascular ischemic change. No evidence for acute infarction. CEREBELLUM: No masses. No hemorrhage. No alteration of density. No evidence for acute infarction. EXTRAAXIAL SPACES: Mild age-related involutional change. No fluid collections. No masses. ORBITS AND GLOBE: No intra- or extraconal masses. Normal contour of globe without masses. CALVARIUM: No fracture. PARANASAL SINUSES: There is right maxillary sinusitis. Mild ethmoid air cell disease. Minimal mucos al thickening in the left maxillary sinus. SOFT TISSUES: No mass or hematoma. OTHER: No other significant finding. IMPRESSION: MILD CHRONIC CHANGES OF ATROPHY AND MICROVASCULAR ISCHEMIA. NO ACUTE PROCESS. SINUSITIS. EVIDENCE OF ACUTE STROKE: NO. TECHNICAL DOCUMENTATION: JOB ID: [id number] Quality ID # [id number]: Final reports with documentation of one or more dose reduction techniques (e.g., Au tomated exposure control, adjustment of the mA and/or kV according to patient size, use of iterative reconstruction technique) 2010 [employer]- All Rights Reserved Reading location - IP/workstation name: [email or web address]
[2020-04-21] MEDS ORDERED: NORMAL SALINE 1000 ML 1,000 ML IV ONE (14:48)
[2020-04-21 14:55] LABS: ALBUMIN 3.7 g/dL (3.5-5.0); ALKALINE PHOSPHATASE 78 U/L (38-126); ANION GAP 7 (5-19); ASPARTATE AMINO TRANSFERASE 23 U/L (17-59); BLOOD UREA NITROGEN 14 mg/dL (7-20); CALCIUM 8.6 mg/dL (8.4-10.2); CARBON DIOXIDE 26 mmol/L (22-30); CHLORIDE 103 mmol/L (98-107); GLUCOSE 178 mg/dL (75-110); POTASSIUM 4.1 mmol/L (3.6-5.0); TOTAL PROTEIN 6.8 g/dL (6.3-8.2)
[2020-04-21 15:07] LABS: NT PRO BNP 2510 pg/mL (<450)
[2020-04-21 15:27] LABS: TROPONIN I < 0.012 ng/mL
--- NOTE | 2020-04-21 15:52 | RADIOLOGY REPORT (SQ) ---
EXAM DESCRIPTION: CHEST SINGLE VIEW IMAGES COMPLETED DATE/TIME: 04/21/2020 3:32 pm REASON FOR STUDY: chest pain, dizziness COMPARISON: 11/18/2019 EXAM PARAMETERS: NUMBER OF VIEWS: One view. TECHNIQUE: Single frontal radiographic view of the chest acquired. RADIATION DOSE: NA LIMITATIONS: None. FINDINGS: LUNGS AND PLEURA: Chronic scarring in the lung bases and lung apices. No evidence of pulm onary edema or pneumonia. MEDIASTINUM AND HILAR STRUCTURES: Stable. HEART AND VASCULAR STRUCTURES: Stable heart size. Normal vasculature. BONES: No acute findings. HARDWARE: None in the chest. OTHER: No other significant finding. IMPRESSION: Stable, chronic changes. TECHNICAL DOCUMENTATION: JOB ID: [id number] 2010 [employer]- All Rights Reserved Reading location - IP/workstation name: [email or web address]
[2020-04-21 17:57] LABS: APPEARANCE,URINE CLEAR; BILIRUBIN,URINE NEGATIVE (NEGATIVE); COLOR,URINE YELLOW; GLUCOSE, URINE NEGATIVE (NEGATIVE); KETONES,URINE NEGATIVE (NEGATIVE); LEUKOCYTE ESTERASE,URINE NEGATIVE (NEGATIVE); NITRITE,URINE NEGATIVE (NEGATIVE); PROTEIN,URINE NEGATIVE (NEGATIVE); URINE SPECIFIC GRAVITY 1.011; UROBILINOGEN,URINE NEGATIVE mg/dL (<2.0)
[2020-04-22] MEDS ORDERED: NORMAL SALINE 1000 ML 1,000 ML IV PRN (02:17)
[2020-04-22] MEDS ORDERED: DIPHENOXYLATE HCL/ATROP SULF 2.5-0.025 MG TABLET PO PRN (02:19)
[2020-04-22] MEDS: SOTALOL HCL 80 MG TABLET PO SCH ×3 (02:32→21:20)
[2020-04-22] MEDS: RIVAROXABAN 10 MG TABLET PO SCH ×2 (02:32→21:20)
[2020-04-22] MEDS: PANTOPRAZOLE SODIUM 40 MG TABLET.DR PO SCH (05:59)
[2020-04-22] MEDS ORDERED: PRESERVISION AREDS PO SCH (10:00)
[2020-04-22] MEDS ORDERED: FUROSEMIDE 20 MG TABLET PO SCH (10:00)
[2020-04-22 10:24] LABS: ABSOLUTE LYMPHOCYTES (AUTO) 1.7 10^3/uL (0.5-4.7); ABSOLUTE MONOCYTES (AUTO) 0.6 10^3/uL (0.1-1.4); ABSOLUTE NEUT (AUTO) 6.5 10^3/uL (1.7-8.2); BASOPHILS % (AUTO) 0.2 % (0-2); EOSINOPHILS % (AUTO) 0.4 % (0-6); HEMATOCRIT 33.5 % (37.9-51.0); HEMOGLOBIN 11.3 g/dL (13.5-17.0); LYMPHOCYTES % (AUTO) 19.5 % (13-45); MEAN CORPUSCULAR HEMOGLOBIN 30.8 pg (27.0-33.4); MEAN CORPUSCULAR HGB CONC 33.6 g/dL (32.0-36.0); MEAN CORPUSCULAR VOLUME 92 fl (80-97); MONOCYTES % (AUTO) 6.9 % (3-13); PLATELET COUNT 248 10^3/uL (150-450); RED BLOOD COUNT 3.66 10^6/uL (4.35-5.55); RED CELL DISTRIBUTION WIDTH 15.1 % (11.5-14.0); TOTAL CELLS COUNTED % (AUTO) 100 %; WHITE BLOOD COUNT 8.8 10^3/uL (4.0-10.5)
[2020-04-22 10:41] LABS: ANION GAP 5 (5-19); BLOOD UREA NITROGEN 12 mg/dL (7-20); CARBON DIOXIDE 27 mmol/L (22-30); CHLORIDE 103 mmol/L (98-107); CREATINE KINASE 76 U/L (55-170); GLUCOSE 150 mg/dL (75-110); POTASSIUM 3.7 mmol/L (3.6-5.0)
[2020-04-22 10:54] LABS: CREATINE KINASE MB 1.11 ng/mL (<4.55)
[2020-04-22 10:55] LABS: TROPONIN I < 0.012 ng/mL
[2020-04-22] MEDS: ASPIRIN 81 MG TABLET, CHEWABLE PO SCH (11:25)
[2020-04-22] MEDS: TAMSULOSIN HCL 0.4 MG CAP.SR.24H PO SCH (11:25)
[2020-04-22] MEDS: FOLIC ACID 1 MG TABLET PO SCH (11:25)
[2020-04-22] MEDS: FLUTICASONE/VILANTEROL 100-25 MCG/DOSE IH SCH (11:26)
[2020-04-22] MEDS: NORMAL SALINE 1000 ML 1,000 ML IV PRN ×2 (11:33→18:28)
--- NOTE | 2020-04-22 13:18 | EKG REPORT ---
SEVERITY:- ABNORMAL ECG - ATRIAL FIBRILLATION RIGHT BUNDLE BRANCH BLOCK : Confirmed by: Jean Carlos Man MD 22-Apr-2020 13:17:13
--- NOTE | 2020-04-22 13:39 | RADIOLOGY REPORT (SQ) ---
EXAM DESCRIPTION: CHEST SINGLE VIEW IMAGES COMPLETED DATE/TIME: 04/22/2020 1:25 pm REASON FOR STUDY: rhythm change COMPARISON: EXAM PARAMETERS: NUMBER OF VIEWS: One view. TECHNIQUE: Single frontal radiographic view of the chest acquired. RADIATION DOSE: NA LIMITATIONS: None. FINDINGS: LUNGS AND PLEURA: Stable chronic left basilar opacities. Stable biapical scarring and ple ural thickening. No definite superimposed airspace disease. MEDIASTINUM AND HILAR STRUCTURES: No masses. Contour normal. HEART AND VASCULAR STRUCTURES: Stable. Vascular calcifications. BONES: No acute findings. HARDWARE: None in the chest. OTHER: No other significant finding. IMPRESSION: Stable chronic changes without definitive superimposed cardiopulmonary process. TECHNICAL DOCUMENTATION: JOB ID: [id number] 2010 [employer]- All Rights Reserved Reading location - IP/workstation name: [email or web address]
[2020-04-22 14:40] LABS: APPEARANCE,URINE SLIGHTLY-CLOUDY; BILIRUBIN,URINE NEGATIVE (NEGATIVE); COLOR,URINE YELLOW; GLUCOSE, URINE NEGATIVE (NEGATIVE); KETONES,URINE TRACE mg/dL (NEGATIVE); LEUKOCYTE ESTERASE,URINE MODERATE (NEGATIVE); NITRITE,URINE NEGATIVE (NEGATIVE); PROTEIN,URINE NEGATIVE (NEGATIVE); URINE SPECIFIC GRAVITY 1.024; UROBILINOGEN,URINE NEGATIVE mg/dL (<2.0)
[2020-04-22 14:47] LABS: CREATINE KINASE MB 0.96 ng/mL (<4.55)
[2020-04-22 14:51] LABS: TROPONIN I < 0.012 ng/mL
--- NOTE | 2020-04-22 16:08 | RADIOLOGY REPORT (SQ) ---
EXAM DESCRIPTION: CAROTID DOPPLER IMAGES COMPLETED DATE/TIME: 04/22/2020 3:37 pm REASON FOR STUDY: Dizziness COMPARISON: None. TECHNIQUE: Grayscale ultrasound, Doppler velocity and spectra, and color Doppler images acquired of the extra-cranial carotid and vertebral arteries. Images stored on PACS. LIMITATIONS: None. FINDINGS: RIGHT CAROTID CCA Velocities: Within normal limits. ICA Velocities Peak systolic 74 cm/s. End diastolic 26 cm/s. Proximal ICA/CCA peak systolic ratio 1.4. Soft plaque. LEFT CAROTID CCA Velocities: Within normal limits. ICA Velocities Peak systolic 59 cm/s. End diastolic 22 cm/s. Proximal ICA/CCA peak systolic ratio 1.3. Soft plaque VERTEBRAL ARTERIES: Antegrade flow. Normal waveforms. SUBCLAVIAN ARTERIES: No finding. OTHER: No other significant finding. IMPRESSION: NO HEMODYNAMICALLY SIGNIFICANT STENOSIS. COMMENT: Quality ID #[id number]: Velocity criteria are extrapolated from the diameter data as defined by t he Society of Radiologists in Ultrasound Consensus Conference. Radiology 2003: 229; 340-346. TECHNICAL DOCUMENTATION: JOB ID: [id number] 2010 [employer]- All Rights Reserved Reading location - IP/workstation name: [email or web address]
--- NOTE | 2020-04-22 17:03 | PDOC H&P ---
History of Present Illness Admission Date/PCP: 04/21/20 19:45 SALVADOR YAO MD Patient complains of: Dizziness, Weakness History of Present Illness: KEIRY IVERSON is a 84 year old male patient known to my practice who presented to the Ed with complain about feeling dizzy which he described as "the world spinning around him". He reported associated weakness and inability to sustained himself in standing position and found himself right on the floor. he denied associated loss of consciousness, palpitation, or headache. he reported slight left upper chest region marco a and nausea but no vomiting with episode of his dizziness. He denied any definite fever but admitted to intermittent chills and breaking out in sweat. No vomiting or abdominal pain. His initial ED evaluation was remarkable for inability to void urine and eventful placement of Drz catheter with over 500 ml of urine expelled. he was advised hospitalization for further evaluation and management. His morbidities are as listed below. Past Medical History Cardiac Medical History: Reports: Atrial Fibrillation, Coronary Artery Disease, Myocardial Infarction, Hyperlipidema, Hypertension Pulmonary Medical History: Reports: Bronchitis, Chronic Obstructive Pulmonary Disease (COPD), Pneumonia Denies: Asthma EENT Medical History: Reports: Eyes - Macular degeneration Neurological Medical History: Denies: Seizures Endocrine Medical History: Reports: Diabetes Mellitus Type 2 Malignancy Medical History: Reports: Skin Cancer Musculoskeltal Medical History: Reports: Arthritis - Rheumatoid arthritis Psychiatric Medical History: Reports: Depression Hematology: Denies: Anemia Past Surgical History Past Surgical History: Reports: Appendectomy, Cardiac Catheterization - with stents, Coronary Stent, Orthopedic Surgery - facial, right hand Social History Smoking Status: Former Smoker Last Time Smoked: quit 40 yrs ago Frequency of Alcohol Use: None Hx Recreational Drug Use: No Drugs: None Hx Prescription Drug Abuse: No Family History Family History: Reviewed & Not Pertinent Parental Family History Reviewed: Yes Children Family History Reviewed: Yes Sibling(s) Family History Reviewed.: Yes Medication/Allergy Home Medications: Aspirin [Aspir-Low] 81 mg PO DAILY 11/13/19 Diphenoxylate HCl/Atrop Sulf [Lomotil 2.5 mg Tablet] 1 tab PO ASDIR PRN 11/13/19 Dutasteride 0.5 mg PO QPM 11/13/19 Fluticasone Propionate [Flonase Nasal [place] 50 Mcg/[place] 16 gm] 2 sprays NASL QPM 11/13/19 Fluticasone/Vilanterol [Breo 100-25 Mcg Ellipta 14 Dose/Dpi] 1 inh IH DAILY 11/13/19 Folic Acid 1 mg PO DAILY 11/13/19 Furosemide [Lasix 20 mg Tablet] 20 mg PO QAM 11/13/19 Methotrexate Sodium [Rheumatrex 2.5 mg Tablet] 15 mg PO [id number] 11/13/19 Nitroglycerin [Nitrostat 0.4 mg (1/150 Gr) Tabs 25/Bottle] 1 tab SL Q5MP PRN 11/13/19 Rivaroxaban [Xarelto] 20 mg PO QPM 11/13/19 Rosuvastatin Calcium 20 mg PO QPM 11/13/19 Sotalol HCl [Betapace 80 mg Tablet] 80 mg PO Q12 11/13/19 Tamsulosin HCl [Flomax] 0.4 mg PO QPM 11/13/19 Vit C/E/Zn/Coppr/Lutein/Zeaxan [Preservision Areds 2 Softgel] 1 each PO Q12 11/13/19 Benzonatate [Tessalon Perles 100 mg Capsule] 100 mg PO BIDP PRN 04/21/20 Allergies/Adverse Reactions: lactose Allergy (Intermediate, Verified 04/22/20 07:11) acetaminophen [From Tylenol] Allergy (Verified 04/21/20 17:38) amoxicillin Allergy (Verified 04/21/20 17:38) erythromycin base Allergy (Verified 04/21/20 17:38) tetracycline [Tetracycline] Allergy (Verified 04/21/20 17:38) Review of Systems Constitutional: PRESENT: chills, weakness. ABSENT: fever(s), headache(s), weight gain, weight loss Eyes: ABSENT: visual disturbances Ears: ABSENT: hearing changes Nose, Mouth, and Throat: PRESENT: vertigo. ABSENT: headache(s), sore throat Cardiovascular: PRESENT: chest pain. ABSENT: dyspnea on exertion, edema, orthropnea, palpitations Respiratory: ABSENT: cough, hemoptysis Gastrointestinal: PRESENT: nausea. ABSENT: abdominal pain, constipation, diarrhea, hematemesis, hematochezia, vomiting Genitourinary: PRESENT: difficulty urinating. ABSENT: dysuria, hematuria Musculoskeletal: PRESENT: muscle weakness - generalized. ABSENT: joint swelling Integumentary: ABSENT: diaphoresis, rash, wounds Neurological: PRESENT: dizziness, vertigo. ABSENT: abnormal gait, abnormal speech, confusion, focal weakness, syncope Psychiatric: PRESENT: depression - episodic, like last night. ABSENT: anxiety, homidical ideation, suicidal ideation Endocrine: ABSENT: cold intolerance, heat intolerance, menstrual abnormalities, polydipsia, polyuria Hematologic/Lymphatic: ABSENT: easy bleeding, easy bruising, lymphadenopathy Allergic/Immunologic: ABSENT: seasonal rhinorrhea Physical Exam Vital Signs: Temp Pulse Resp BP Pulse Ox 98.0 F 105 H 15 104/50 L 96 04/22/20 07:44 04/22/20 07:44 04/22/20 07:44 04/22/20 07:44 04/22/20 07:44 Intake & Output 04/21/20 04/22/20 04/23/20 06:59 06:59 06:59 Intake Total 1640 Output Total 600 Balance 1040 Weight 85.5 kg General appearance: PRESENT: no acute distress, well-developed, well-nourished Head exam: PRESENT: atraumatic, normocephalic Eye exam: PRESENT: conjunctiva pink, EOMI, PERRLA. ABSENT: scleral icterus Ear exam: PRESENT: normal external ear exam Mouth exam: PRESENT: moist, tongue midline Neck exam: PRESENT: full ROM. ABSENT: carotid bruit, JVD, lymphadenopathy, thyromegaly Respiratory exam: PRESENT: crackles - scattered, decreased breath sounds - at lung bases Cardiovascular exam: PRESENT: irregular rhythm, +S1, +S2. ABSENT: diastolic murmur, rubs, systolic murmur Pulses: PRESENT: normal dorsalis pedis pul, +2 pedal pulses bilateral Vascular exam: PRESENT: normal capillary refill. ABSENT: pallor GI/Abdominal exam: PRESENT: normal bowel sounds, soft. ABSENT: distended, guarding, mass, organolmegaly, rebound, tenderness Rectal exam: PRESENT: deferred Extremities exam: ABSENT: pedal edema Neurological exam: PRESENT: alert, awake, oriented to person, oriented to place, oriented to time, oriented to situation, CN II-XII grossly intact. ABSENT: motor sensory deficit Psychiatric exam: PRESENT: appropriate affect, normal mood. ABSENT: homicidal ideation, suicidal ideation Skin exam: PRESENT: dry, intact, warm. ABSENT: cyanosis, rash Results Laboratory Results: 04/21/20 14:19 04/21/20 14:19 04/21/20 04/21/20 04/21/20 14:19 14:19 17:30 WBC 12.8 H RBC 3.93 L Hgb 12.2 L Hct 36.1 L MCV 92 MCH 31.0 MCHC 33.8 RDW 14.8 H Plt Count 236 Seg Neutrophils % 82.0 H Sodium 136.3 L Potassium 4.1 Chloride 103 Carbon Dioxide 26 Anion Gap 7 BUN 14 Creatinine 0.73 Est GFR ( Amer) > 60 Glucose 178 H Lactic Acid 1.6 Calcium 8.6 Total Bilirubin 1.0 AST 23 Alkaline Phosphatase 78 Total Protein 6.8 Albumin 3.7 Lipase 342.4 H Urine Color Urine Appearance Urine pH Ur Specific Jadwin Urine Protein Urine Glucose (UA) Urine Ketones Urine Blood Urine Nitrite Ur Leukocyte Esterase Urine WBC (Auto) Urine RBC (Auto) 04/21/20 17:35 WBC RBC Hgb Hct MCV MCH MCHC RDW Plt Count Seg Neutrophils % Sodium Potassium Chloride Carbon Dioxide Anion Gap BUN Creatinine Est GFR ( Amer) Glucose Lactic Acid Calcium Total Bilirubin AST Alkaline Phosphatase Total Protein Albumin Lipase Urine Color YELLOW Urine Appearance CLEAR Urine pH 5.0 Ur Specific Jadwin 1.011 Urine Protein NEGATIVE Urine Glucose (UA) NEGATIVE Urine Ketones NEGATIVE Urine Blood NEGATIVE Urine Nitrite NEGATIVE Ur Leukocyte Esterase NEGATIVE Urine WBC (Auto) 0 Urine RBC (Auto) 0 04/21/20 14:19 Troponin I < 0.012 NT-Pro-B Natriuret Pep 2510 H Impressions: Head CT 04/21/20 13:16 IMPRESSION: MILD CHRONIC CHANGES OF ATROPHY AND MICROVASCULAR ISCHEMIA. NO ACUTE PROCESS. SINUSITIS. EVIDENCE OF ACUTE STROKE: NO. Chest X-Ray 04/21/20 14:49 IMPRESSION: Stable, chronic changes. Assessment & Plan - Diagnosis (1) Near syncope Is this a current diagnosis for this admission?: Yes Plan: See admitting attending physician orders for details about care plan. (2) Generalized weakness Is this a current diagnosis for this admission?: Yes Plan: See admitting attending physician orders for details about care plan. (3) Vertigo, benign paroxysmal Qualifiers: Laterality: unspecified laterality Qualified Code(s): H81.10 - Benign paroxysmal vertigo, unspecified ear Is this a current diagnosis for this admission?: Yes Plan: See admitting attending physician orders for details about care plan. (4) UTI (urinary tract infection) Qualifiers: Urinary tract infection type: site unspecified Hematuria presence: with hematuria Qualified Code(s): N39.0 - Urinary tract infection, site not specified; R31.9 - Hematuria, unspecified Is this a current diagnosis for this admission?: Yes Plan: See admitting attending physician orders for details about care plan. (5) Chronic atrial fibrillation with rapid ventricular response Is this a current diagnosis for this admission?: Yes Plan: See admitting attending physician orders for details about care plan. (6) Urinary retention Is this a current diagnosis for this admission?: Yes Plan: See admitting attending physician orders for details about care plan. (7) BPH (benign prostatic hyperplasia) Qualifiers: Lower urinary tract symptom presence: symptoms present Lower urinary tract symptom detail: urinary retention Qualified Code(s): N40.1 - Benign prostatic hyperplasia with lower urinary tract symptoms; R33.8 - Other retention of urine Is this a current diagnosis for this admission?: Yes Plan: See admitting attending physician orders for details about care plan. (8) COPD (chronic obstructive pulmonary disease) Qualifiers: COPD type: emphysema Emphysema type: unspecified Qualified Code(s): J43.9 - Emphysema, unspecified Is this a current diagnosis for this admission?: Yes Plan: See admitting attending physician orders for details about care plan. (9) HLD (hyperlipidemia) Qualifiers: Hyperlipidemia type: unspecified Qualified Code(s): E78.5 - Hyperlipidemia, unspecified Is this a current diagnosis for this admission?: Yes Plan: See admitting attending physician orders for details about care plan. (10) HTN (hypertension) Qualifiers: Hypertension type: essential hypertension Qualified Code(s): I10 - Essential (primary) hypertension Is this a current diagnosis for this admission?: Yes Plan: See admitting attending physician orders for details about care plan. (11) Rheumatoid arthritis Qualifiers: Laterality: unspecified laterality Is this a current diagnosis for this admission?: Yes Plan: See admitting attending physician orders for details about care plan. - Time Time Spent: 50 to 70 Minutes Medications reviewed and adjusted accordingly: Yes Anticipated discharge: Home with Homehealth Within: Other - Inpatient Certification Based on my medical assessment, after consideration of the patient's comorbidities, presenting symptoms, or acuity I expect that the services needed warrant INPATIENT care.: Yes I certify that my determination is in accordance with my understanding of Medicare's requirements for reasonable and necessary INPATIENT services [42 CFR 412.3e].: Yes Medical Necessity: Significant Comorbidiites Make Outpatient Treatment Too Risky, Need Close Monitoring Due to Risk of Patient Decompensation, Need For IV Fluids, Need For Continuous Telemetry Monitoring, Need for IV Antibiotics, Risk of Complication if Not Cared For in Hospital, Risk of Diagnosis Which Will Require Inpatient Eval/Care/Monitoring Post Hospital Care: D/C Office Runner Documentation - Plan Summary Plan Summary: See admitting attending physician orders for details about care plan.
[2020-04-22] MEDS: AZTREONAM 1 GM in DEXTROSE 5%-WATER 50 ML IV SCH (18:22)
[2020-04-22] MEDS: FLUTICASONE NASAL SPRAY 50 MCG/SPRY 120 SPRAY/16 GM NASL SCH (21:19)
[2020-04-22] MEDS: DUTASTERIDE 0.5 MG CAPSULE PO SCH (21:20)
[2020-04-22] MEDS: ATORVASTATIN CALCIUM 40 MG TABLET PO SCH (21:20)
[2020-04-22 21:30] LABS: CREATINE KINASE MB 1.04 ng/mL (<4.55)
[2020-04-22 21:31] LABS: TROPONIN I < 0.012 ng/mL
[2020-04-23] MEDS: AZTREONAM 1 GM in DEXTROSE 5%-WATER 50 ML IV SCH ×3 (01:39→18:45)
[2020-04-23] MEDS: PANTOPRAZOLE SODIUM 40 MG TABLET.DR PO SCH (05:24)
[2020-04-23] MEDS: TAMSULOSIN HCL 0.4 MG CAP.SR.24H PO SCH (10:00)
[2020-04-23] MEDS: FOLIC ACID 1 MG TABLET PO SCH (10:01)
[2020-04-23] MEDS: SOTALOL HCL 80 MG TABLET PO SCH ×2 (10:01→21:33)
[2020-04-23] MEDS: ASPIRIN 81 MG TABLET, CHEWABLE PO SCH (10:01)
[2020-04-23] MEDS: NORMAL SALINE 1000 ML 1,000 ML IV PRN (10:01)
[2020-04-23] MEDS: FLUTICASONE/VILANTEROL 100-25 MCG/DOSE IH SCH (10:03)
[2020-04-23 11:08] LABS: ABSOLUTE EOSINOPHILS # (AUTO) 0.1 10^3/uL (0.0-0.6); ABSOLUTE LYMPHOCYTES (AUTO) 1.7 10^3/uL (0.5-4.7); ABSOLUTE MONOCYTES (AUTO) 0.5 10^3/uL (0.1-1.4); ABSOLUTE NEUT (AUTO) 4.8 10^3/uL (1.7-8.2); BASOPHILS % (AUTO) 0.3 % (0-2); EOSINOPHILS % (AUTO) 1.8 % (0-6); HEMOGLOBIN 11.1 g/dL (13.5-17.0); LYMPHOCYTES % (AUTO) 23.8 % (13-45); MEAN CORPUSCULAR HGB CONC 33.8 g/dL (32.0-36.0); MEAN CORPUSCULAR VOLUME 92 fl (80-97); MONOCYTES % (AUTO) 7.1 % (3-13); PLATELET COUNT 228 10^3/uL (150-450); RED BLOOD COUNT 3.59 10^6/uL (4.35-5.55); RED CELL DISTRIBUTION WIDTH 14.7 % (11.5-14.0); TOTAL CELLS COUNTED % (AUTO) 100 %; WHITE BLOOD COUNT 7.1 10^3/uL (4.0-10.5)
[2020-04-23 11:29] LABS: ALBUMIN 2.8 g/dL (3.5-5.0); ALKALINE PHOSPHATASE 63 U/L (38-126); ANION GAP 6 (5-19); ASPARTATE AMINO TRANSFERASE 22 U/L (17-59); BILIRUBIN,TOTAL 0.9 mg/dL (0.2-1.3); BLOOD UREA NITROGEN 10 mg/dL (7-20); CALCIUM 7.9 mg/dL (8.4-10.2); CARBON DIOXIDE 25 mmol/L (22-30); CHLORIDE 104 mmol/L (98-107); GLUCOSE 144 mg/dL (75-110); TOTAL PROTEIN 5.6 g/dL (6.3-8.2)
--- NOTE | 2020-04-23 13:25 | EKG REPORT ---
SEVERITY:- ABNORMAL ECG - ATRIAL FIBRILLATION RIGHT BUNDLE BRANCH BLOCK : Confirmed by: Jean Carlos Man MD 23-Apr-2020 13:24:47
[2020-04-23] MEDS ORDERED: NITROGLYCERIN 0.4 MG/TAB 25 TAB/BOTTLE SL PRN (13:54)
[2020-04-23] MEDS ORDERED: DILTIAZEM HCL 90 MG TABLET PO ONE (14:00)
--- NOTE | 2020-04-23 21:17 | PDOC PROGRESS REPORT ---
Subjective Progress Note for:: 04/23/20 Subjective:: Patient reported feeling better at the timeof my evaluation today. He had episode of RVR despite optimal dose of his Sotolol. He had remote consultation with Dr. Young, neurosurgery spine physician, earlier today with addition f Cardizem to his medication region and improvement in his heart rate and rhythm. No chest pain or difficulty with breathing. No fever or chills. No nausea, vomiting, or abdominal pain. PO intake remain fair. Reason For Visit: GENERALIZED WEAKNESS NEAR SYNCOPE URINARY Physical Exam Vital Signs: Temp Pulse Resp BP Pulse Ox 97.5 F 102 H 17 111/71 97 04/23/20 11:43 04/23/20 14:00 04/23/20 11:43 04/23/20 11:43 04/23/20 11:43 Intake & Output 04/22/20 04/23/20 04/24/20 06:59 06:59 06:59 Intake Total 1640 4602 1818 Output Total 600 1750 1200 Balance 1040 2852 618 Weight 85.5 kg 90.8 kg General appearance: PRESENT: no acute distress, well-developed, well-nourished Head exam: PRESENT: atraumatic, normocephalic Eye exam: PRESENT: conjunctiva pink. ABSENT: scleral icterus Mouth exam: PRESENT: moist Respiratory exam: PRESENT: clear to auscultation karthik, decreased breath sounds - at lung bases Cardiovascular exam: PRESENT: irregular rhythm, +S1, +S2. ABSENT: diastolic murmur, rubs, systolic murmur Vascular exam: ABSENT: pallor GI/Abdominal exam: PRESENT: normal bowel sounds, soft. ABSENT: distended, guarding, mass, organolmegaly, rebound, tenderness Extremities exam: ABSENT: pedal edema Neurological exam: PRESENT: alert, awake, oriented to person, oriented to place, oriented to time, oriented to situation, CN II-XII grossly intact. ABSENT: motor sensory deficit Psychiatric exam: PRESENT: appropriate affect, normal mood. ABSENT: homicidal ideation, suicidal ideation Skin exam: PRESENT: dry, warm Results Laboratory Results: 04/23/20 10:54 04/23/20 10:54 04/23/20 04/23/20 10:54 10:54 WBC 7.1 RBC 3.59 L Hgb 11.1 L Hct 33.0 L MCV 92 MCH 31.0 MCHC 33.8 RDW 14.7 H Plt Count 228 Seg Neutrophils % 67.0 Sodium 134.5 L Potassium 4.0 Chloride 104 Carbon Dioxide 25 Anion Gap 6 BUN 10 Creatinine 0.59 Est GFR ( Amer) > 60 Glucose 144 H Calcium 7.9 L Magnesium 2.2 Total Bilirubin 0.9 AST 22 Alkaline Phosphatase 63 Total Protein 5.6 L Albumin 2.8 L 04/21/20 04/22/20 04/22/20 14:19 09:46 09:46 Creatine Kinase 76 CK-MB (CK-2) 1.11 Troponin I < 0.012 < 0.012 NT-Pro-B Natriuret Pep 2510 H 04/22/20 04/22/20 04/22/20 13:35 13:55 20:34 Creatine Kinase 79 97 CK-MB (CK-2) 0.96 Troponin I < 0.012 NT-Pro-B Natriuret Pep 04/22/20 04/23/20 20:34 10:54 Creatine Kinase CK-MB (CK-2) 1.04 Troponin I < 0.012 NT-Pro-B Natriuret Pep 3920 H Impressions: Head CT 04/21/20 13:16 IMPRESSION: MILD CHRONIC CHANGES OF ATROPHY AND MICROVASCULAR ISCHEMIA. NO ACUTE PROCESS. SINUSITIS. EVIDENCE OF ACUTE STROKE: NO. Carotid Doppler Study 04/22/20 00:00 IMPRESSION: NO HEMODYNAMICALLY SIGNIFICANT STENOSIS. Chest X-Ray 04/22/20 00:00 IMPRESSION: Stable chronic changes without definitive superimposed cardiopulmonary process. Assessment & Plan - Diagnosis (1) Near syncope Is this a current diagnosis for this admission?: Yes (2) Generalized weakness Is this a current diagnosis for this admission?: Yes (3) Vertigo, benign paroxysmal Qualifiers: Laterality: unspecified laterality Qualified Code(s): H81.10 - Benign paroxysmal vertigo, unspecified ear Is this a current diagnosis for this admission?: Yes (4) UTI (urinary tract infection) Qualifiers: Urinary tract infection type: site unspecified Hematuria presence: with hematuria Qualified Code(s): N39.0 - Urinary tract infection, site not specified; R31.9 - Hematuria, unspecified Is this a current diagnosis for this admission?: Yes (5) Chronic atrial fibrillation with rapid ventricular response Is this a current diagnosis for this admission?: Yes (6) Urinary retention Is this a current diagnosis for this admission?: Yes (7) BPH (benign prostatic hyperplasia) Qualifiers: Lower urinary tract symptom presence: symptoms present Lower urinary tract symptom detail: urinary retention Qualified Code(s): N40.1 - Benign prostatic hyperplasia with lower urinary tract symptoms; R33.8 - Other retention of urine Is this a current diagnosis for this admission?: Yes (8) COPD (chronic obstructive pulmonary disease) Qualifiers: COPD type: emphysema Emphysema type: unspecified Qualified Code(s): J43.9 - Emphysema, unspecified Is this a current diagnosis for this admission?: Yes (9) HLD (hyperlipidemia) Qualifiers: Hyperlipidemia type: unspecified Qualified Code(s): E78.5 - Hyperlipidemia, unspecified Is this a current diagnosis for this admission?: Yes (10) HTN (hypertension) Qualifiers: Hypertension type: essential hypertension Qualified Code(s): I10 - Essential (primary) hypertension Is this a current diagnosis for this admission?: Yes (11) Rheumatoid arthritis Qualifiers: Laterality: unspecified laterality Is this a current diagnosis for this admission?: Yes - Time Time Spent with patient: 25-34 minutes Level of Care: IMCU Medications reviewed and adjusted accordingly: Yes Anticipated discharge: Home with Homehealth Within: Other - Inpatient Certification Based on my medical assessment, after consideration of the patient's comorbidities, presenting symptoms, or acuity I expect that the services needed warrant INPATIENT care.: Yes I certify that my determination is in accordance with my understanding of Medicare's requirements for reasonable and necessary INPATIENT services [42 CFR 412.3e].: Yes Medical Necessity: Significant Comorbidiites Make Outpatient Treatment Too Risky, Need Close Monitoring Due to Risk of Patient Decompensation, Need For IV Fluids, Need for IV Antibiotics, Risk of Complication if Not Cared For in Hospital, Risk of Diagnosis Which Will Require Inpatient Eval/Care/Monitoring Post Hospital Care: D/C Hydrology Technician Documentation - Plan Summary Plan Summary: Decrease Cardizem to 120 mg, CD formulation, po daily in view of his significant response and near bradycardia thereafter. Maintain on all other current me dication management. Follow up on final organism identification and sensitivities on his urine and sputum culture. His blood culture is no growth to date.
[2020-04-23] MEDS: DUTASTERIDE 0.5 MG CAPSULE PO SCH (21:34)
[2020-04-23] MEDS: RIVAROXABAN 10 MG TABLET PO SCH (21:34)
[2020-04-23] MEDS: ATORVASTATIN CALCIUM 40 MG TABLET PO SCH (21:35)
[2020-04-23] MEDS: FLUTICASONE NASAL SPRAY 50 MCG/SPRY 120 SPRAY/16 GM NASL SCH (21:35)
[2020-04-23] MEDS ORDERED: DILTIAZEM HCL 120 MG CAP.SR.24H PO SCH (22:00)
[2020-04-24] MEDS: NORMAL SALINE 1000 ML 1,000 ML IV PRN ×2 (00:30→18:00)
[2020-04-24] MEDS: AZTREONAM 1 GM in DEXTROSE 5%-WATER 50 ML IV SCH ×3 (01:31→18:00)
[2020-04-24] MEDS: PANTOPRAZOLE SODIUM 40 MG TABLET.DR PO SCH (06:14)
--- NOTE | 2020-04-24 06:42 | EKG REPORT ---
SEVERITY:- ABNORMAL ECG - ATRIAL FIBRILLATION RIGHT BUNDLE BRANCH BLOCK : Confirmed by: Jean Carlos Man MD 24-Apr-2020 06:41:25
[2020-04-24 08:17] LABS: ABSOLUTE EOSINOPHILS # (AUTO) 0.2 10^3/uL (0.0-0.6); ABSOLUTE MONOCYTES (AUTO) 0.6 10^3/uL (0.1-1.4); ABSOLUTE NEUT (AUTO) 3.2 10^3/uL (1.7-8.2); BASOPHILS % (AUTO) 0.2 % (0-2); EOSINOPHILS % (AUTO) 3.2 % (0-6); HEMATOCRIT 33.4 % (37.9-51.0); HEMOGLOBIN 11.4 g/dL (13.5-17.0); LYMPHOCYTES % (AUTO) 33.6 % (13-45); MEAN CORPUSCULAR HEMOGLOBIN 31.2 pg (27.0-33.4); MEAN CORPUSCULAR HGB CONC 34.2 g/dL (32.0-36.0); MEAN CORPUSCULAR VOLUME 91 fl (80-97); MONOCYTES % (AUTO) 9.8 % (3-13); PLATELET COUNT 256 10^3/uL (150-450); RED BLOOD COUNT 3.67 10^6/uL (4.35-5.55); RED CELL DISTRIBUTION WIDTH 14.5 % (11.5-14.0); SEGMENTED NEUTROPHILS % (AUTO) 53.2 % (42-78); TOTAL CELLS COUNTED % (AUTO) 100 %; WHITE BLOOD COUNT 5.9 10^3/uL (4.0-10.5)
[2020-04-24 08:34] LABS: BLOOD UREA NITROGEN 9 mg/dL (7-20); CALCIUM 8.2 mg/dL (8.4-10.2); GLUCOSE 114 mg/dL (75-110); POTASSIUM 4.3 mmol/L (3.6-5.0)
[2020-04-24 08:40] LABS: CARBON DIOXIDE 28 mmol/L (22-30); CHLORIDE 106 mmol/L (98-107)
[2020-04-24 08:45] LABS: ANION GAP 3 (5-19)
[2020-04-24] MEDS ORDERED: DILTIAZEM HCL 120 MG CAP.SR.24H PO SCH (10:00)
[2020-04-24] MEDS: SOTALOL HCL 80 MG TABLET PO SCH ×2 (10:30→21:52)
[2020-04-24] MEDS: FOLIC ACID 1 MG TABLET PO SCH (10:30)
[2020-04-24] MEDS: ASPIRIN 81 MG TABLET, CHEWABLE PO SCH (10:30)
[2020-04-24] MEDS: TAMSULOSIN HCL 0.4 MG CAP.SR.24H PO SCH (10:30)
[2020-04-24] MEDS: FLUTICASONE/VILANTEROL 100-25 MCG/DOSE IH SCH (10:31)
[2020-04-24] MEDS: RIVAROXABAN 10 MG TABLET PO SCH (21:52)
[2020-04-24] MEDS: ATORVASTATIN CALCIUM 40 MG TABLET PO SCH (21:53)
[2020-04-24] MEDS: DILTIAZEM HCL 60 MG TABLET PO SCH (21:53)
[2020-04-24] MEDS: DUTASTERIDE 0.5 MG CAPSULE PO SCH (21:53)
[2020-04-24] MEDS: FLUTICASONE NASAL SPRAY 50 MCG/SPRY 120 SPRAY/16 GM NASL SCH (21:53)
[2020-04-25] MEDS: AZTREONAM 1 GM in DEXTROSE 5%-WATER 50 ML IV SCH ×3 (02:16→17:24)
[2020-04-25] MEDS: DILTIAZEM HCL 60 MG TABLET PO SCH ×3 (05:49→21:32)
[2020-04-25] MEDS: PANTOPRAZOLE SODIUM 40 MG TABLET.DR PO SCH (05:54)
[2020-04-25] MEDS: NORMAL SALINE 1000 ML 1,000 ML IV PRN ×2 (07:55→21:15)
[2020-04-25] MEDS: FLUTICASONE/VILANTEROL 100-25 MCG/DOSE IH SCH (09:39)
[2020-04-25] MEDS: SOTALOL HCL 80 MG TABLET PO SCH ×2 (09:39→21:33)
[2020-04-25] MEDS: ASPIRIN 81 MG TABLET, CHEWABLE PO SCH (09:39)
[2020-04-25] MEDS: TAMSULOSIN HCL 0.4 MG CAP.SR.24H PO SCH (09:39)
[2020-04-25] MEDS: FOLIC ACID 1 MG TABLET PO SCH (09:39)
--- NOTE | 2020-04-25 13:03 | PDOC PROGRESS REPORT ---
Subjective Progress Note for:: 04/25/20 Subjective:: Patient seen by the bedside, he was admitted for the management of atrial fibrillation with RVR, UTI, presently on Cardizem and sotalol, is still an episode of RVR. Reason For Visit: GENERALIZED WEAKNESS NEAR SYNCOPE URINARY Physical Exam Vital Signs: Temp Pulse Resp BP Pulse Ox 97.5 F 89 16 110/65 96 04/25/20 11:43 04/25/20 11:43 04/25/20 11:43 04/25/20 11:43 04/25/20 11:43 Intake & Output 04/24/20 04/25/20 04/26/20 06:59 06:59 06:59 Intake Total 3218 3197 1000 Output Total 3600 2475 Balance -542 400 0167 Weight 90.2 kg 91.3 kg General appearance: PRESENT: no acute distress Eye exam: PRESENT: PERRLA Respiratory exam: PRESENT: clear to auscultation karthik Cardiovascular exam: PRESENT: +S1, +S2 GI/Abdominal exam: PRESENT: soft Neurological exam: PRESENT: alert Results Laboratory Results: 04/24/20 07:31 04/24/20 07:32 04/21/20 04/22/20 04/22/20 14:19 09:46 09:46 Creatine Kinase 76 CK-MB (CK-2) 1.11 Troponin I < 0.012 < 0.012 NT-Pro-B Natriuret Pep 2510 H 04/22/20 04/22/20 04/22/20 13:35 13:55 20:34 Creatine Kinase 79 97 CK-MB (CK-2) 0.96 Troponin I < 0.012 NT-Pro-B Natriuret Pep 04/22/20 04/23/20 20:34 10:54 Creatine Kinase CK-MB (CK-2) 1.04 Troponin I < 0.012 NT-Pro-B Natriuret Pep 3920 H Impressions: Head CT 04/21/20 13:16 IMPRESSION: MILD CHRONIC CHANGES OF ATROPHY AND MICROVASCULAR ISCHEMIA. NO ACUTE PROCESS. SINUSITIS. EVIDENCE OF ACUTE STROKE: NO. Carotid Doppler Study 04/22/20 00:00 IMPRESSION: NO HEMODYNAMICALLY SIGNIFICANT STENOSIS. Chest X-Ray 04/22/20 00:00 IMPRESSION: Stable chronic changes without definitive superimposed cardiopulmo nary process. Assessment & Plan - Diagnosis (1) Atrial fibrillation with rapid ventricular response Is this a current diagnosis for this admission?: Yes Plan: Continue sotalol and Cardizem (2) UTI (urinary tract infection) Qualifiers: Urinary tract infection type: site unspecified Hematuria presence: with hematuria Qualified Code(s): N39.0 - Urinary tract infection, site not specified; R31.9 - Hematuria, unspecified Is this a current diagnosis for this admission?: Yes Plan: Continue IV antibiotic - Time Time Spent with patient: 35 or more minutes Level of Care: IMCU Medications reviewed and adjusted accordingly: Yes Anticipated discharge: Home Within: within 72 hours
[2020-04-25] MEDS: ATORVASTATIN CALCIUM 40 MG TABLET PO SCH (21:32)
[2020-04-25] MEDS: RIVAROXABAN 10 MG TABLET PO SCH (21:33)
[2020-04-25] MEDS: DUTASTERIDE 0.5 MG CAPSULE PO SCH (21:33)
[2020-04-25] MEDS: FLUTICASONE NASAL SPRAY 50 MCG/SPRY 120 SPRAY/16 GM NASL SCH ×2 (21:45→21:59)
[2020-04-26] MEDS: AZTREONAM 1 GM in DEXTROSE 5%-WATER 50 ML IV SCH ×3 (01:30→17:40)
[2020-04-26] MEDS: PANTOPRAZOLE SODIUM 40 MG TABLET.DR PO SCH (05:24)
[2020-04-26] MEDS: DILTIAZEM HCL 60 MG TABLET PO SCH (05:24)
[2020-04-26] MEDS: DILTIAZEM HCL 120 MG CAP.SR.24H PO SCH ×2 (09:39→21:47)
[2020-04-26] MEDS: SOTALOL HCL 80 MG TABLET PO SCH ×2 (09:40→21:47)
[2020-04-26] MEDS: FOLIC ACID 1 MG TABLET PO SCH (09:40)
[2020-04-26] MEDS: ASPIRIN 81 MG TABLET, CHEWABLE PO SCH (09:40)
[2020-04-26] MEDS: TAMSULOSIN HCL 0.4 MG CAP.SR.24H PO SCH (09:40)
[2020-04-26] MEDS: FLUTICASONE/VILANTEROL 100-25 MCG/DOSE IH SCH (09:41)
[2020-04-26 09:48] LABS: ALBUMIN 3.1 g/dL (3.5-5.0); ALKALINE PHOSPHATASE 75 U/L (38-126); ANION GAP 6 (5-19); ASPARTATE AMINO TRANSFERASE 19 U/L (17-59); BLOOD UREA NITROGEN 9 mg/dL (7-20); CALCIUM 8.2 mg/dL (8.4-10.2); CARBON DIOXIDE 25 mmol/L (22-30); CHLORIDE 104 mmol/L (98-107); GLUCOSE 156 mg/dL (75-110); POTASSIUM 4.3 mmol/L (3.6-5.0); TOTAL PROTEIN 6.1 g/dL (6.3-8.2)
[2020-04-26] MEDS: NORMAL SALINE 1000 ML 1,000 ML IV PRN (12:10)
--- NOTE | 2020-04-26 15:11 | PDOC PROGRESS REPORT ---
Subjective Progress Note for:: 04/26/20 Subjective:: He has polymicrobial infection in the sputum most likely colonization, the dosage of the Cardizem was changed today by Dr. Young Reason For Visit: GENERALIZED WEAKNESS NEAR SYNCOPE URINARY Physical Exam Vital Signs: Temp Pulse Resp BP Pulse Ox 98.1 F 115 H 16 120/79 94 04/26/20 11:48 04/26/20 14:00 04/26/20 11:48 04/26/20 11:48 04/26/20 11:48 Intake & Output 04/25/20 04/26/20 04/27/20 06:59 06:59 06:59 Intake Total 3197 3700 1480 Output Total 2475 3100 725 Balance 722 600 755 Weight 91.3 kg 91.3 kg General appearance: PRESENT: no acute distress Eye exam: PRESENT: PERRLA Respiratory exam: PRESENT: clear to auscultation karthik Cardiovascular exam: PRESENT: +S1, +S2 GI/Abdominal exam: PRESENT: soft Results Laboratory Results: 04/24/20 07:31 04/26/20 08:58 04/26/20 08:58 Sodium 135.2 L Potassium 4.3 Chloride 104 Carbon Dioxide 25 Anion Gap 6 BUN 9 Creatinine 0.68 Est GFR ( Amer) > 60 Glucose 156 H Calcium 8.2 L Total Bilirubin 1.0 AST 19 Alkaline Phosphatase 75 Total Protein 6.1 L Albumin 3.1 L 04/22/20 11:30 Sputum Gram Stain - Final 04/22/20 11:30 Sputum Sputum Culture - Final Klebsiella Pneumoniae Pseudomonas Aeruginosa Haemophilus Influenzae Normal Karen 04/21/20 04/22/20 04/22/20 14:19 09:46 09:46 Creatine Kinase 76 CK-MB (CK-2) 1.11 Troponin I < 0.012 < 0.012 NT-Pro-B Natriuret Pep 2510 H 04/22/20 04/22/20 04/22/20 13:35 13:55 20:34 Creatine Kinase 79 97 CK-MB (CK-2) 0.96 Troponin I < 0.012 NT-Pro-B Natriuret Pep 04/22/20 04/23/20 04/26/20 20:34 10:54 08:58 Creatine Kinase CK-MB (CK-2) 1.04 Troponin I < 0.012 NT-Pro-B Natriuret Pep 3920 H 3840 H Impressions: Head CT 04/21/20 13:16 IMPRESSION: MILD CHRONIC CHANGES OF ATROPHY AND MICROVASCULAR ISCHEMIA. NO ACUTE PROCESS. SINUSITIS. EVIDENCE OF ACUTE STROKE: NO. Carotid Doppler Study 04/22/20 00:00 IMPRESSION: NO HEMODYNAMICALLY SIGNIFICANT STENOSIS. Chest X-Ray 04/22/20 00:00 IMPRESSION: Stable chronic changes without definitive superimposed cardiopulmonary process. Assessment & Plan - Diagnosis (1) Atrial fibrillation with rapid ventricular response Is this a current diagnosis for this admission?: Yes Plan: Continue sotalol and Cardizem (2) UTI (urinary tract infection) Qualifiers: Urinary tract infection type: site unspecified Hematuria presence: with hematuria Qualified Code(s): N39.0 - Urinary tract infection, site not specified; R31.9 - Hematuria, unspecified Is this a current diagnosis for this admission?: Yes Plan: Continue IV antibiotic - Time Time Spent with patient: 25-34 minutes Level of Care: IMCU Medications reviewed and adjusted accordingly: Yes
[2020-04-26] MEDS: DUTASTERIDE 0.5 MG CAPSULE PO SCH (21:47)
[2020-04-26] MEDS: ATORVASTATIN CALCIUM 40 MG TABLET PO SCH (21:47)
[2020-04-26] MEDS: RIVAROXABAN 10 MG TABLET PO SCH (21:47)
[2020-04-26] MEDS: FLUTICASONE NASAL SPRAY 50 MCG/SPRY 120 SPRAY/16 GM NASL SCH (21:47)
[2020-04-27] MEDS: AZTREONAM 1 GM in DEXTROSE 5%-WATER 50 ML IV SCH ×3 (01:20→17:08)
[2020-04-27] MEDS: NORMAL SALINE 1000 ML 1,000 ML IV PRN ×2 (01:20→19:07)
[2020-04-27] MEDS: PANTOPRAZOLE SODIUM 40 MG TABLET.DR PO SCH (05:04)
[2020-04-27] MEDS ORDERED: METOPROLOL TARTRATE 50 MG TABLET PO SCH ×2 (08:30→10:00)
[2020-04-27] MEDS: FOLIC ACID 1 MG TABLET PO SCH (09:29)
[2020-04-27] MEDS: METOPROLOL TARTRATE 50 MG TABLET PO SCH ×2 (09:29→22:43)
[2020-04-27] MEDS: DILTIAZEM HCL 120 MG CAP.SR.24H PO SCH ×2 (09:29→22:44)
[2020-04-27] MEDS: TAMSULOSIN HCL 0.4 MG CAP.SR.24H PO SCH (09:29)
[2020-04-27] MEDS: SOTALOL HCL 80 MG TABLET PO SCH ×2 (09:30→22:44)
[2020-04-27] MEDS: ASPIRIN 81 MG TABLET, CHEWABLE PO SCH (09:30)
[2020-04-27] MEDS: FLUTICASONE/VILANTEROL 100-25 MCG/DOSE IH SCH (09:30)
--- NOTE | 2020-04-27 13:16 | PDOC PROGRESS REPORT ---
Subjective Progress Note for:: 04/24/20 Subjective:: Patient denied chest pain or difficulty with breathing. No fever or chills. No nausea, vomiting, or abdominal pain. 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 Reason For Visit: GENERALIZED WEAKNESS NEAR SYNCOPE URINARY Physical Exam Vital Signs: Temp Pulse Resp BP Pulse Ox 97.4 F 65 20 118/84 97 04/24/20 11:24 04/24/20 11:24 04/24/20 11:24 04/24/20 11:24 04/24/20 11:24 Intake & Output 04/23/20 04/24/20 04/25/20 06:59 06:59 06:59 Intake Total 4602 3218 Output Total 1750 3600 Balance 2852 -382 Weight 90.8 kg 90.2 kg Physical Exam: General appearance: PRESENT: no acute distress, well-developed, well-nourished Head exam: PRESENT: atraumatic, normocephalic Eye exam: PRESENT: conjunctiva pink. ABSENT: pallor, scleral icterus Mouth exam: PRESENT: moist Respiratory exam: PRESENT: clear to auscultation karthik, decreased breath sounds - at lung bases Cardiovascular exam: PRESENT: irregular rhythm, +S1, +S2. ABSENT: diastolic murmur, rubs, systolic murmur GI/Abdominal exam: PRESENT: normal bowel sounds, soft. ABSENT: distended, guarding, mass, organomegaly, rebound, tenderness Extremities exam: ABSENT: pedal edema Neurological exam: PRESENT: alert, awake, oriented to person, oriented to place, oriented to time, oriented to situation, CN II-XII grossly intact. ABSENT: motor sensory deficit Psychiatric exam: PRESENT: appropriate affect, normal mood. ABSENT: homicidal ideation, suicidal ideation Skin exam: PRESENT: dry, warm Results Laboratory Results: 04/24/20 07:31 04/24/20 07:32 04/24/20 04/24/20 07:31 07:32 WBC 5.9 RBC 3.67 L Hgb 11.4 L Hct 33.4 L MCV 91 MCH 31.2 MCHC 34.2 RDW 14.5 H Plt Count 256 Seg Neutrophils % 53.2 Sodium 136.7 L Potassium 4.3 Chloride 106 Carbon Dioxide 28 Anion Gap 3 L BUN 9 Creatinine 0.63 Est GFR ( Amer) > 60 Glucose 114 H Calcium 8.2 L 04/22/20 11:30 Sputum Gram Stain - Final 04/22/20 11:30 Catheterized Urine Urine Culture - Final Citrobacter Koseri 04/21/20 04/22/20 04/22/20 14:19 09:46 09:46 Creatine Kinase 76 CK-MB (CK-2) 1.11 Troponin I < 0.012 < 0.012 NT-Pro-B Natriuret Pep 2510 H 04/22/20 04/22/20 04/22/20 13:35 13:55 20:34 Creatine Kinase 79 97 CK-MB (CK-2) 0.96 Troponin I < 0.012 NT-Pro-B Natriuret Pep 04/22/20 04/23/20 20:34 10:54 Creatine Kinase CK-MB (CK-2) 1.04 Troponin I < 0.012 NT-Pro-B Natriuret Pep 3920 H Impressions: Head CT 04/21/20 13:16 IMPRESSION: MILD CHRONIC CHANGES OF ATROPHY AND MICROVASCULAR ISCHEMIA. NO ACUTE PROCESS. SINUSITIS. EVIDENCE OF ACUTE STROKE: NO. Carotid Doppler Study 04/22/20 00:00 IMPRESSION: NO HEMODYNAMICALLY SIGNIFICANT STENOSIS. Chest X-Ray 04/22/20 00:00 IMPRESSION: Stable chronic changes without definitive superimposed cardiop ulmonary process. Assessment & Plan - Diagnosis (1) Near syncope Is this a current diagnosis for this admission?: Yes (2) Generalized weakness Is this a current diagnosis for this admission?: Yes (3) Vertigo, benign paroxysmal Qualifiers: Laterality: unspecified laterality Qualified Code(s): H81.10 - Benign paroxysmal vertigo, unspecified ear Is this a current diagnosis for this admission?: Yes (4) UTI (urinary tract infection) Qualifiers: Urinary tract infection type: site unspecified Hematuria presence: with hematuria Qualified Code(s): N39.0 - Urinary tract infection, site not specified; R31.9 - Hematuria, unspecified Is this a current diagnosis for this admission?: Yes (5) Chronic atrial fibrillation with rapid ventricular response Is this a current diagnosis for this admission?: Yes (6) Urinary retention Is this a current diagnosis for this admission?: Yes (7) BPH (benign prostatic hyperplasia) Qualifiers: Lower urinary tract symptom presence: symptoms present Lower urinary tract symptom detail: urinary retention Qualified Code(s): N40.1 - Benign prostatic hyperplasia with lower urinary tract symptoms; R33.8 - Other retention of urine Is this a current diagnosis for this admission?: Yes (8) COPD (chronic obstructive pulmonary disease) Qualifiers: COPD type: emphysema Emphysema type: unspecified Qualified Code(s): J43.9 - Emphysema, unspecified Is this a current diagnosis for this admission?: Yes (9) HLD (hyperlipidemia) Qualifiers: Hyperlipidemia type: unspecified Qualified Code(s): E78.5 - Hyperlipidemia, unspecified Is this a current diagnosis for this admission?: Yes (10) HTN (hypertension) Qualifiers: Hypertension type: essential hypertension Qualified Code(s): I10 - Essential (primary) hypertension Is this a current diagnosis for this admission?: Yes (11) Rheumatoid arthritis Qualifiers: Laterality: unspecified laterality Is this a current diagnosis for this admission?: Yes - Time Time Spent with patient: 25-34 minutes Level of Care: IMCU Medications reviewed and adjusted accordingly: Yes Anticipated discharge: Home with Homehealth Within: Other - Inpatient Certification Based on my medical assessment, after consideration of the patient's comorbidities, presenting symptoms, or acuity I expect that the services needed warrant INPATIENT care.: Yes I certify that my determination is in accordance with my understanding of Medicare's requirements for reasonable and necessary INPATIENT services [42 CFR 412.3e].: Yes Medical Necessity: Significant Comorbidiites Make Outpatient Treatment Too Risky, Need Close Monitoring Due to Risk of Patient Decompensation, Need For IV Fluids, Need For Continuous Telemetry Monitoring, Need for IV Antibiotics, Risk of Complication if Not Cared For in Hospital, Risk of Diagnosis Which Will Require Inpatient Eval/Care/Monitoring Post Hospital Care: D/C Medical Office Receptionist Assistant 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 Follow up on organism sensitivity report on sputum culture. Change Cardizem to regular formulary at 60 mg po q 8 hours. Maintain on all other current medication management.
--- NOTE | 2020-04-27 13:21 | PDOC PROGRESS REPORT ---
Subjective Progress Note for:: 04/27/20 Subjective:: Patient continue to demonstrate heart rate variability with rapid response and need for addition of beta kylah to his medication management today. He denied chest pain or difficulty with breathing. No fever or chills. No nausea, vomiting, or abdominal pain. Reason For Visit: GENERALIZED WEAKNESS NEAR SYNCOPE URINARY Physical Exam Vital Signs: Temp Pulse Resp BP Pulse Ox 97.6 F 107 H 21 H 118/85 91 L 04/27/20 07:30 04/27/20 07:30 04/27/20 07:30 04/27/20 07:30 04/27/20 07:30 Intake & Output 04/26/20 04/27/20 04/28/20 06:59 06:59 06:59 Intake Total 3700 3428 240 Output Total 3100 3225 Balance 600 203 240 Weight 91.3 kg 90.9 kg 90.9 kg Physical Exam: General appearance: PRESENT: no acute distress, well-developed, well-nourished Head exam: PRESENT: atraumatic, normocephalic Eye exam: PRESENT: conjunctiva pink. ABSENT: pallor, scleral icterus Mouth exam: PRESENT: moist Respiratory exam: PRESENT: clear to auscultation karthik, decreased breath sounds - at lung bases Cardiovascular exam: PRESENT: irregular rhythm, +S1, +S2. ABSENT: diastolic murmur, rubs, systolic murmur GI/Abdominal exam: PRESENT: normal bowel sounds, soft. ABSENT: distended, guarding, mass, organomegaly, rebound, tenderness Extremities exam: ABSENT: pedal edema Neurological exam: PRESENT: alert, awake, oriented to person, oriented to place, oriented to time, oriented to situation, CN II-XII grossly intact. ABSENT: motor sensory deficit Psychiatric exam: PRESENT: appropriate affect, normal mood. ABSENT: homicidal ideation, suicidal ideation Skin exam: PRESENT: dry, warm Results Laboratory Results: 04/24/20 07:31 04/26/20 08:58 04/21/20 19:01 Blood Blood Culture - Final NO GROWTH IN 5 DAYS 04/21/20 17:30 Blood Blood Culture - Final NO GROWTH IN 5 DAYS 04/22/20 11:30 Sputum Gram Stain - Final 04/22/20 11:30 Sputum Sputum Culture - Final Klebsiella Pneumoniae Pseudomonas Aeruginosa Haemophilus Influenzae Normal Karen 04/21/20 04/22/20 04/22/20 14:19 09:46 09:46 Creatine Kinase 76 CK-MB (CK-2) 1.11 Troponin I < 0.012 < 0.012 NT-Pro-B Natriuret Pep 2510 H 04/22/20 04/22/20 04/22/20 13:35 13:55 20:34 Creatine Kinase 79 97 CK-MB (CK-2) 0.96 Troponin I < 0.012 NT-Pro-B Natriuret Pep 04/22/20 04/23/20 04/26/20 20:34 10:54 08:58 Creatine Kinase CK-MB (CK-2) 1.04 Troponin I < 0.012 NT-Pro-B Natriuret Pep 3920 H 3840 H Impressions: Head CT 04/21/20 13:16 IMPRESSION: MILD CHRONIC CHANGES OF ATROPHY AND MICROVASCULAR ISCHEMIA. NO ACUTE PROCESS. SINUSITIS. EVIDENCE OF ACUTE STROKE: NO. Carotid Doppler Study 04/22/20 00:00 IMPRESSION: NO HEMODYNAMICALLY SIGNIFICANT STENOSIS. Chest X-Ray 04/22/20 00:00 IMPRESSION: Stable chronic changes without definitive superimposed cardiopulmonary process. Assessment & Plan - Diagnosis (1) Near syncope Is this a current diagnosis for this admission?: Yes (2) Generalized weakness Is this a current diagnosis for this admission?: Yes (3) Vertigo, benign paroxysmal Qualifiers: Laterality: unspecified laterality Qualified Code(s): H81.10 - Benign paroxysmal vertigo, unspecified ear Is this a current diagnosis for this admission?: Yes (4) UTI (urinary tract infection) Qualifiers: Urinary tract infection type: site unspecified Hematuria presence: with hematuria Qualified Code(s): N39.0 - Urinary tract infection, site not specified; R31.9 - Hematuria, unspecified Is this a current diagnosis for this admission?: Yes (5) Chronic atrial fibrillation with rapid ventricular response Is this a current diagnosis for this admission?: Yes (6) Urinary retention Is this a current diagnosis for this admission?: Yes (7) BPH (benign prostatic hyperplasia) Qualifiers: Lower urinary tract symptom presence: symptoms present Lower urinary tract symptom detail: urinary retention Qualified Code(s): N40.1 - Benign prostatic hyperplasia with lower urinary tract symptoms; R33.8 - Other retention of urine Is this a current diagnosis for this admission?: Yes (8) COPD (chronic obstructive pulmonary disease) Qualifiers: COPD type: emphysema Emphysema type: unspecified Qualified Code(s): J43.9 - Emphysema, unspecified Is this a current diagnosis for this admission?: Yes (9) HLD (hyperlipidemia) Qualifiers: Hyperlipidemia type: unspecified Qualified Code(s): E78.5 - Hyperlipidemia, unspecified Is this a current diagnosis for this admission?: Yes (10) HTN (hypertension) Qualifiers: Hypertension type: essential hypertension Qualified Code(s): I10 - Essential (primary) hypertension Is this a current diagnosis for this admission?: Yes (11) Rheumatoid arthritis Qualifiers: Laterality: unspecified laterality Is this a current diagnosis for this admission?: Yes (12) Acute bronchitis, bacterial Is this a current diagnosis for this admission?: Yes Plan: Continue IV Aztreonam coverage. - Time Time Spent with patient: 25-34 minutes Level of Care: IMCU Medications reviewed and adjusted accordingly: Yes Anticipated discharge: Home with Homehealth Within: Other - Inpatient Certification Based on my medical assessment, after consideration of the patient's comorbidities, presenting symptoms, or acuity I expect that the services needed warrant INPATIENT care.: Yes I certify that my determination is in accordance with my understanding of Medic are's requirements for reasonable and necessary INPATIENT services [42 CFR 412.3e].: Yes Medical Necessity: Significant Comorbidiites Make Outpatient Treatment Too Risky, Need Close Monitoring Due to Risk of Patient Decompensation, Need For IV Fluids, Need For Continuous Telemetry Monitoring, Need for IV Antibiotics, Risk of Complication if Not Cared For in Hospital, Risk of Diagnosis Which Will Require Inpatient Eval/Care/Monitoring Post Hospital Care: D/C Mottler Operator Documentation - Plan Summary Plan Summary: Continue IV Aztreonam coverage which as been adequate for both his sputum and urine culture growths. He would need total of 10 days therapy in view of his extensive antibiotic allergy and culture findings.
[2020-04-27] MEDS: RIVAROXABAN 10 MG TABLET PO SCH (22:43)
[2020-04-27] MEDS: ATORVASTATIN CALCIUM 40 MG TABLET PO SCH (22:43)
[2020-04-27] MEDS: DUTASTERIDE 0.5 MG CAPSULE PO SCH (22:44)
[2020-04-27] MEDS: FLUTICASONE NASAL SPRAY 50 MCG/SPRY 120 SPRAY/16 GM NASL SCH (22:44)
[2020-04-28] MEDS: AZTREONAM 1 GM in DEXTROSE 5%-WATER 50 ML IV SCH ×3 (02:11→17:13)
[2020-04-28] MEDS: PANTOPRAZOLE SODIUM 40 MG TABLET.DR PO SCH (05:21)
[2020-04-28] MEDS: NORMAL SALINE 1000 ML 1,000 ML IV PRN (08:28)
[2020-04-28] MEDS: FLUTICASONE/VILANTEROL 100-25 MCG/DOSE IH SCH (09:27)
[2020-04-28] MEDS: METOPROLOL TARTRATE 50 MG TABLET PO SCH ×2 (09:28→22:28)
[2020-04-28] MEDS: TAMSULOSIN HCL 0.4 MG CAP.SR.24H PO SCH (09:28)
[2020-04-28] MEDS: DILTIAZEM HCL 120 MG CAP.SR.24H PO SCH ×2 (09:28→22:28)
[2020-04-28] MEDS: FOLIC ACID 1 MG TABLET PO SCH (09:28)
[2020-04-28] MEDS: SOTALOL HCL 80 MG TABLET PO SCH ×2 (09:28→22:27)
[2020-04-28] MEDS: ASPIRIN 81 MG TABLET, CHEWABLE PO SCH (09:28)
--- NOTE | 2020-04-28 17:15 | PDOC PROGRESS REPORT ---
Subjective Progress Note for:: 04/28/20 Subjective:: Patient denied chest pain or difficulty with breathing. He continue to demonstrate tachycardia, even at rest at times. No fever or chills. No nausea, vomiting, or abdominal pain. Reason For Visit: GENERALIZED WEAKNESS NEAR SYNCOPE URINARY Physical Exam Vital Signs: Temp Pulse Resp BP Pulse Ox 97.4 F 96 18 128/67 H 97 04/28/20 07:28 04/28/20 07:28 04/28/20 07:28 04/28/20 07:28 04/28/20 07:28 Intake & Output 04/27/20 04/28/20 04/29/20 06:59 06:59 06:59 Intake Total 3428 3030 1000 Output Total 3225 2950 Balance 516 12 1987 Weight 90.9 kg 90.9 kg Physical Exam: General appearance: PRESENT: no acute distress, well-developed, well-nourished Head exam: PRESENT: atraumatic, normocephalic Eye exam: PRESENT: conjunctiva pink. ABSENT: pallor, scleral icterus Mouth exam: PRESENT: moist Respiratory exam: PRESENT: clear to auscultation karthik, decreased breath sounds - at lung bases Cardiovascular exam: PRESENT: irregular rhythm, +S1, +S2. ABSENT: diastolic murmur, rubs, systolic murmur GI/Abdominal exam: PRESENT: normal bowel sounds, soft. ABSENT: distended, guarding, mass, organomegaly, rebound, tenderness Extremities exam: ABSENT: pedal edema Neurological exam: PRESENT: alert, awake, oriented to person, oriented to place, oriented to time, oriented to situation, CN II-XII grossly intact. ABSENT: motor sensory deficit Psychiatric exam: PRESENT: appropriate affect, normal mood. ABSENT: homicidal ideation, suicidal ideation Skin exam: PRESENT: dry, warm Results Laboratory Results: 04/24/20 07:31 04/26/20 08:58 04/21/20 04/22/20 04/22/20 14:19 09:46 09:46 Creatine Kinase 76 CK-MB (CK-2) 1.11 Troponin I < 0.012 < 0.012 NT-Pro-B Natriuret Pep 2510 H 04/22/20 04/22/20 04/22/20 13:35 13:55 20:34 Creatine Kinase 79 97 CK-MB (CK-2) 0.96 Troponin I < 0.012 NT-Pro-B Natriuret Pep 04/22/20 04/23/20 04/26/20 20:34 10:54 08:58 Creatine Kinase CK-MB (CK-2) 1.04 Troponin I < 0.012 NT-Pro-B Natriuret Pep 3920 H 3840 H Impressions: Head CT 04/21/20 13:16 IMPRESSION: MILD CHRONIC CHANGES OF ATROPHY AND MICROVASCULAR ISCHEMIA. NO ACUTE PROCESS. SINUSITIS. EVIDENCE OF ACUTE STROKE: NO. Carotid Doppler Study 04/22/20 00:00 IMPRESSION: NO HEMODYNAMICALLY SIGNIFICANT STENOSIS. Chest X-Ray 04/22/20 00:00 IMPRESSION: Stable chronic changes without definitive superimposed cardiopul monary process. Assessment & Plan - Diagnosis (1) Near syncope Is this a current diagnosis for this admission?: Yes (2) Generalized weakness Is this a current diagnosis for this admission?: Yes (3) Vertigo, benign paroxysmal Qualifiers: Laterality: unspecified laterality Qualified Code(s): H81.10 - Benign paroxysmal vertigo, unspecified ear Is this a current diagnosis for this admission?: Yes (4) UTI (urinary tract infection) Qualifiers: Urinary tract infection type: site unspecified Hematuria presence: with hematuria Qualified Code(s): N39.0 - Urinary tract infection, site not specified; R31.9 - Hematuria, unspecified Is this a current diagnosis for this admission?: Yes (5) Chronic atrial fibrillation with rapid ventricular response Is this a current diagnosis for this admission?: Yes (6) Urinary retention Is this a current diagnosis for this admission?: Yes (7) BPH (benign prostatic hyperplasia) Qualifiers: Lower urinary tract symptom presence: symptoms present Lower urinary tract symptom detail: urinary retention Qualified Code(s): N40.1 - Benign prostatic hyperplasia with lower urinary tract symptoms; R33.8 - Other retention of urine Is this a current diagnosis for this admission?: Yes Plan: Increase Tamsulosin dose to 0.8 mg p.o daily after dinner. (8) COPD (chronic obstructive pulmonary disease) Qualifiers: COPD type: emphysema Emphysema type: unspecified Qualified Code(s): J43.9 - Emphysema, unspecified Is this a current diagnosis for this admission?: Yes (9) HLD (hyperlipidemia) Qualifiers: Hyperlipidemia type: unspecified Qualified Code(s): E78.5 - Hyperlipidemia, unspecified Is this a current diagnosis for this admission?: Yes (10) HTN (hypertension) Qualifiers: Hypertension type: essential hypertension Qualified Code(s): I10 - Essential (primary) hypertension Is this a current diagnosis for this admission?: Yes (11) Rheumatoid arthritis Qualifiers: Laterality: unspecified laterality Is this a current diagnosis for this admission?: Yes (12) Acute bronchitis, bacterial Is this a current diagnosis for this admission?: Yes - Time Time Spent with patient: 25-34 minutes Level of Care: IMCU Medications reviewed and adjusted accordingly: Yes Anticipated discharge: Home with Homehealth Within: Other - Inpatient Certification Based on my medical assessment, after consideration of the patient's comorbidities, presenting symptoms, or acuity I expect that the services needed warrant INPATIENT care.: Yes I certify that my determination is in accordance with my understanding of Medicare's requirements for reasonable and necessary INPATIENT services [42 CFR 412.3e].: Yes Medical Necessity: Significant Comorbidiites Make Outpatient Treatment Too Risky, Need Close Monitoring Due to Risk of Patient Decompensation, Need For IV Fluids, Need For Continuous Telemetry Monitoring, Need for IV Antibiotics, Risk of Complication if Not Cared For in Hospital, Risk of Diagnosis Which Will Require Inpatient Eval/Care/Monitoring Post Hospital Care: D/C Aviation Safety Inspector Documentation - Plan Summary Plan Summary: Increase Tamsulosin dose to 0.8 mg po daily. Continue all other current medication management. I will discuss further with Dr. Young, valet cashier, regarding arrhythmia medication management adjustment.
[2020-04-28] MEDS: FLUTICASONE NASAL SPRAY 50 MCG/SPRY 120 SPRAY/16 GM NASL SCH (22:24)
[2020-04-28] MEDS: ATORVASTATIN CALCIUM 40 MG TABLET PO SCH (22:26)
[2020-04-28] MEDS: DUTASTERIDE 0.5 MG CAPSULE PO SCH (22:26)
[2020-04-28] MEDS: RIVAROXABAN 10 MG TABLET PO SCH (22:28)
[2020-04-29] MEDS: NORMAL SALINE 1000 ML 1,000 ML IV PRN ×2 (00:13→12:08)
[2020-04-29] MEDS: AZTREONAM 1 GM in DEXTROSE 5%-WATER 50 ML IV SCH ×2 (01:33→09:28)
[2020-04-29] MEDS: PANTOPRAZOLE SODIUM 40 MG TABLET.DR PO SCH (06:24)
[2020-04-29 08:44] LABS: ALKALINE PHOSPHATASE 74 U/L (38-126); ANION GAP 7 (5-19); ASPARTATE AMINO TRANSFERASE 20 U/L (17-59); BILIRUBIN,TOTAL 0.7 mg/dL (0.2-1.3); BLOOD UREA NITROGEN 11 mg/dL (7-20); CALCIUM 8.2 mg/dL (8.4-10.2); CARBON DIOXIDE 23 mmol/L (22-30); CHLORIDE 107 mmol/L (98-107); GLUCOSE 123 mg/dL (75-110); POTASSIUM 3.8 mmol/L (3.6-5.0); TOTAL PROTEIN 6.1 g/dL (6.3-8.2)
[2020-04-29] MEDS: FOLIC ACID 1 MG TABLET PO SCH (09:29)
[2020-04-29] MEDS: ASPIRIN 81 MG TABLET, CHEWABLE PO SCH (09:29)
[2020-04-29] MEDS: DILTIAZEM HCL 120 MG CAP.SR.24H PO SCH ×2 (09:29→21:19)
[2020-04-29] MEDS: METOPROLOL TARTRATE 50 MG TABLET PO SCH ×2 (09:29→21:21)
[2020-04-29] MEDS: SOTALOL HCL 80 MG TABLET PO SCH ×2 (09:30→21:22)
[2020-04-29] MEDS: TAMSULOSIN HCL 0.4 MG CAP.SR.24H PO SCH (09:30)
[2020-04-29] MEDS: FLUTICASONE/VILANTEROL 100-25 MCG/DOSE IH SCH (09:30)
[2020-04-29] MEDS ORDERED: AZTREONAM 1.5 GM in DEXTROSE 5%-WATER 100 ML IV SCH (18:30)
[2020-04-29] MEDS: RIVAROXABAN 10 MG TABLET PO SCH (21:20)
[2020-04-29] MEDS: DUTASTERIDE 0.5 MG CAPSULE PO SCH (21:20)
[2020-04-29] MEDS: ATORVASTATIN CALCIUM 40 MG TABLET PO SCH (21:20)
--- NOTE | 2020-04-29 21:20 | PDOC PROGRESS REPORT ---
Subjective Progress Note for:: 04/29/20 Subjective:: Patient denied chest pain or difficulty with breathing. He continue to demonstrate tachycardia. No fever or chills. No nausea, vomiting, or abdominal pain. Awaiting echocardiogram findings. Reason For Visit: GENERALIZED WEAKNESS NEAR SYNCOPE URINARY Physical Exam Vital Signs: Temp Pulse Resp BP Pulse Ox 97.5 F 103 H 18 145/79 H 92 04/29/20 17:09 04/29/20 17:09 04/29/20 17:09 04/29/20 17:09 04/29/20 17:09 Intake & Output 04/28/20 04/29/20 04/30/20 06:59 06:59 06:59 Intake Total 3030 3530 1854 Output Total 2950 2575 200 Balance 80 955 1654 Weight 90.9 kg 90.4 kg Physical Exam: General appearance: PRESENT: no acute distress, well-developed, well-nourished Head exam: PRESENT: atraumatic, normocephalic Eye exam: PRESENT: conjunctiva pink. ABSENT: pallor, scleral icterus Mouth exam: PRESENT: moist Respiratory exam: PRESENT: clear to auscultation karthik, decreased breath sounds - at lung bases Cardiovascular exam: PRESENT: irregular rhythm, +S1, +S2. ABSENT: diastolic murmur, rubs, systolic murmur GI/Abdominal exam: PRESENT: normal bowel sounds, soft. ABSENT: distended, guarding, mass, organomegaly, rebound, tenderness Extremities exam: ABSENT: pedal edema Neurological exam: PRESENT: alert, awake, oriented to person, oriented to place, oriented to time, oriented to situation, CN II-XII grossly intact. ABSENT: motor sensory deficit Psychiatric exam: PRESENT: appropriate affect, normal mood. ABSENT: homicidal ideation, suicidal ideation Skin exam: PRESENT: dry, warm Results Laboratory Results: 04/24/20 07:31 04/29/20 08:15 04/29/20 08:15 Sodium 136.6 L Potassium 3.8 Chloride 107 Carbon Dioxide 23 Anion Gap 7 BUN 11 Creatinine 0.61 Est GFR ( Amer) > 60 Glucose 123 H Calcium 8.2 L Total Bilirubin 0.7 AST 20 Alkaline Phosphatase 74 Total Protein 6.1 L Albumin 3.0 L 04/21/20 04/22/20 04/22/20 14:19 09:46 09:46 Creatine Kinase 76 CK-MB (CK-2) 1.11 Troponin I < 0.012 < 0.012 NT-Pro-B Natriuret Pep 2510 H 04/22/20 04/22/20 04/22/20 13:35 13:55 20:34 Creatine Kinase 79 97 CK-MB (CK-2) 0.96 Troponin I < 0.012 NT-Pro-B Natriuret Pep 04/22/20 04/23/20 04/26/20 20:34 10:54 08:58 Creatine Kinase CK-MB (CK-2) 1.04 Troponin I < 0.012 NT-Pro-B Natriuret Pep 3920 H 3840 H 04/29/20 08:15 Creatine Kinase CK-MB (CK-2) Troponin I NT-Pro-B Natriuret Pep 3200 H Impressions: Head CT 04/21/20 13:16 IMPRESSION: MILD CHRONIC CHANGES OF ATROPHY AND MICROVASCULAR ISCHEMIA. NO ACUTE PROCESS. SINUSITIS. EVIDENCE OF ACUTE STROKE: NO. Carotid Doppler Study 04/22/20 00:00 IMPRESSION: NO HEMODYNAMICALLY SIGNIFICANT STENOSIS. Chest X-Ray 04/22/20 00:00 IMPRESSION: Stable chronic changes without definitive superimposed cardiopulmonary process. Assessment & Plan - Diagnosis (1) Near syncope Is this a current diagnosis for this admission?: Yes (2) Generalized weakness Is this a current diagnosis for this admission?: Yes (3) Vertigo, benign paroxysmal Qualifiers: Laterality: unspecified laterality Qualified Code(s): H81.10 - Benign paroxysmal vertigo, unspecified ear Is this a current diagnosis for this admission?: Yes (4) UTI (urinary tract infection) Qualifiers: Urinary tract infection type: site unspecified Hematuria presence: with hematuria Qualified Code(s): N39.0 - Urinary tract infection, site not specified; R31.9 - Hematuria, unspecified Is this a current diagnosis for this admission?: Yes (5) Chronic atrial fibrillation with rapid ventricular response Is this a current diagnosis for this admission?: Yes (6) Urinary retention Is this a current diagnosis for this admission?: Yes (7) BPH (benign prostatic hyperplasia) Qualifiers: Lower urinary tract symptom presence: symptoms present Lower urinary tract symptom detail: urinary retention Qualified Code(s): N40.1 - Benign prostatic hyperplasia with lower urinary tract symptoms; R33.8 - Other retention of urine Is this a current diagnosis for this admission?: Yes (8) COPD (chronic obstructive pulmonary disease) Qualifiers: COPD type: emphysema Emphysema type: unspecified Qualified Code(s): J43.9 - Emphysema, unspecified Is this a current diagnosis for this admission?: Yes (9) HLD (hyperlipidemia) Qualifiers: Hyperlipidemia type: unspecified Qualified Code(s): E78.5 - Hyperlipidemia, unspecified Is this a current diagnosis for this admission?: Yes (10) HTN (hypertension) Qualifiers: Hypertension type: essential hypertension Qualified Code(s): I10 - Essential (primary) hypertension Is this a current diagnosis for this admission?: Yes (11) Rheumatoid arthritis Qualifiers: Laterality: unspecified laterality Is this a current diagnosis for this admission?: Yes (12) Acute bronchitis, bacterial Is this a current diagnosis for this admission?: Yes - Time Time Spent with patient: 25-34 minutes Level of Care: IMCU Medications reviewed and adjusted accordingly: Yes Anticipated discharge: Home with Homehealth Within: Other - Inpatient Certification Based on my medical assessment, after consideration of the patient's comorbidities, presenting symptoms, or acuity I expect that the services needed warrant INPATIENT care.: Yes I certify that my determination is in accordance with my understanding of Medicare's requirements for reasonable and necessary INPATIENT services [42 CFR 412.3e].: Yes Medical Necessity: Significant Comorbidiites Make Outpatient Treatment Too Risky, Need Close Monitoring Due to Risk of Patient Decompensation, Need For IV Fluids, Need For Continuous Telemetry Monitoring, Need for IV Antibiotics, Risk of Complication if Not Cared For in Hospital, Risk of Diagnosis Which Will Require Inpatient Eval/Care/Monitoring Post Hospital Care: D/C Motor Setter 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 Maintain on IV Aztreonam coverage in view of his sputum culture findings and persistence of tachycardia.
[2020-04-29] MEDS: BENZONATATE 100 MG CAPSULE PO PRN (21:26)
[2020-04-29] MEDS: FLUTICASONE NASAL SPRAY 50 MCG/SPRY 120 SPRAY/16 GM NASL SCH (21:27)
[2020-04-29] MEDS: AZTREONAM 2 GM in DEXTROSE 5%-WATER 100 ML IV SCH (23:38)
[2020-04-30] MEDS: NORMAL SALINE 1000 ML 1,000 ML IV PRN (03:31)
[2020-04-30] MEDS: AZTREONAM 2 GM in DEXTROSE 5%-WATER 100 ML IV SCH ×3 (05:25→21:43)
[2020-04-30] MEDS: PANTOPRAZOLE SODIUM 40 MG TABLET.DR PO SCH (05:25)
--- NOTE | 2020-04-30 08:10 | XCELERA REPORT ---
[address] [address] Transthoracic Echocardiogram Report Name: JAIDENGARETHKEIRY VALENZUELA JR Age: 84 yrs Gender: Male : 1935 Patient Status: [facility] Date: 04/29/2020 06:23 PM Height: 71 in Weight: 199 lb BSA: 2.1 m2 Reason For Study: r/r enlargement, asess LVF, regional wall motion Ordering Physician: SALVADOR YOUNG Performed By: Moni Heck Interpretation Summary Technically poor study, no biplane LVEF done, poor Apical 2 chamber view, error in M-mode measurements.(refer to my measurements in report. Pt in atrial fibrillation. Small posterior pericardial effusion. Mild aortic root calcification, no enlargement (37 mm). Mild Non-stenotic calcific aortic valvular disease, mild thickening of 3 cusps AV, No , mild AR. Mild mitral annular calcification with mild thickening of anterior mitral leaflet, no mitral stenosis, trace mitral regurgitation. No MVP. Mild left atrial enlargement (m-mode 42mm). LV shows mild concentric LVH (IVS/PW both 11 mm), no LV apical clot, LVEF is visually normal, with no L ventricular diastolic dysfunction by TDI. Multiple segmental regional wall motion abnormality = mild IVS hypokinesis with conduction abnormality, post wall normal, inferior wall hypokinetic, anterior wall poorly imaged, lateral wall normal. There is no LV enlargement (LVESD 34mm). No LVOT obstruction. No RV or RA enlargement, TAPSE suggests normal RV function. Mild TR, RVSP estimated at 27mm Hg, RAP 3 mm Hg, ie, no pulm. hypertension. Trace pulm. regurgitation. No ASD. Summary = small posterior pericardial effusion. Mild non-stenotic calcific aortic valvular disease. Mild mitral annular calcification, trace mitral regurgitation, mild left atrial enlargement. Mild concentric LVH, but LVEF is visually normal, with no L ventricular diastolic dysfunction, and multiple segmental regional wall motion abnormalities. NO pulm. hypertension, RVSP 27mm Hg. Dr Salvador Young. MMode/2D Measurements & Calculations RVDd: 3.6 cm LVIDd: 5.8 cm FS: 25.7 % Ao root diam: 3.3 cm IVSd: 1.1 cm LVIDs: 4.3 cm EDV(Teich): 169.3 ml LVPWd: 1.1 cm ESV(Teich): 84.8 ml Ao root area: 8.3 cm2 LA dimension: 4.4 cm EF(Teich): 49.9 % Doppler Measurements & Calculations MV E max aubrey: MV P1/2t max aubrey: Ao V2 max: AI max aubrey: 106.1 cm/sec 119.4 cm/sec 108.6 cm/sec 292.0 cm/sec MV P1/2t: 75.5 msec Ao max PG: AI max PG: MVA(P1/2t): 2.9 cm2 4.7 mmHg 34.1 mmHg MV dec slope: AI dec slope: 113.3 cm/sec2 463.2 cm/sec2 AI P1/2t: MV dec time: 754.5 msec 0.22 sec LV V1 max PG: PA V2 max: PI end-d aubrey: TR max aubrey: 3.4 mmHg 94.8 cm/sec 211.4 cm/sec 243.0 cm/sec LV V1 max: PA max P.6 mmHg TR max P.8 cm/sec 23.6 mmHg AV P1/2t-pr_phl: MV P1/2t-pr_phl: 754.5 msec 75.5 msec : SALVADOR YOUNG Andre
[2020-04-30] MEDS ORDERED: FUROSEMIDE 20 MG TABLET PO ONE (09:00)
[2020-04-30] MEDS ORDERED: POTASSIUM CHLORIDE 10 MEQ TABLET.ER PO ONE (09:00)
[2020-04-30] MEDS: METOPROLOL TARTRATE 50 MG TABLET PO SCH ×2 (09:26→21:48)
[2020-04-30] MEDS: TAMSULOSIN HCL 0.4 MG CAP.SR.24H PO SCH (09:26)
[2020-04-30] MEDS: ASPIRIN 81 MG TABLET, CHEWABLE PO SCH (09:26)
[2020-04-30] MEDS: SOTALOL HCL 80 MG TABLET PO SCH ×2 (09:26→21:46)
[2020-04-30] MEDS: FOLIC ACID 1 MG TABLET PO SCH (09:26)
[2020-04-30] MEDS: DILTIAZEM HCL 120 MG CAP.SR.24H PO SCH ×2 (09:27→21:47)
[2020-04-30] MEDS: FLUTICASONE/VILANTEROL 100-25 MCG/DOSE IH SCH (09:42)
--- NOTE | 2020-04-30 13:29 | PDOC PROGRESS REPORT ---
Subjective Progress Note for:: 04/30/20 Subjective:: Patient denied chest pain or difficulty with breathing. He continue to demonstrate tachycardia. No fever or chills. No nausea, vomiting, or abdominal pain. Reason For Visit: GENERALIZED WEAKNESS NEAR SYNCOPE URINARY Physical Exam Vital Signs: Temp Pulse Resp BP Pulse Ox 97.4 F 115 H 16 119/84 91 L 04/30/20 07:31 04/30/20 07:31 04/30/20 07:31 04/30/20 07:31 04/30/20 07:31 Intake & Output 04/29/20 04/30/20 05/01/20 06:59 06:59 06:59 Intake Total 3530 4036 Output Total 2575 2600 Balance 955 1436 Weight 90.4 kg 90.7 kg Physical Exam: General appearance: PRESENT: no acute distress, well-developed, well-nourished Head exam: PRESENT: atraumatic, normocephalic Eye exam: PRESENT: conjunctiva pink. ABSENT: pallor, scleral icterus Mouth exam: PRESENT: moist Respiratory exam: PRESENT: clear to auscultation karthik, decreased breath sounds - at lung bases Cardiovascular exam: PRESENT: irregular rhythm, +S1, +S2. ABSENT: diastolic murmur, rubs, systolic murmur GI/Abdominal exam: PRESENT: normal bowel sounds, soft. ABSENT: distended, guarding, mass, organomegaly, rebound, tenderness Extremities exam: ABSENT: pedal edema Neurological exam: PRESENT: alert, awake, oriented to person, oriented to place, oriented to time, oriented to situation, CN II-XII grossly intact. ABSENT: motor sensory deficit Psychiatric exam: PRESENT: appropriate affect, normal mood. ABSENT: homicidal ideation, suicidal ideation Skin exam: PRESENT: dry, warm Results Laboratory Results: 04/24/20 07:31 04/29/20 08:15 04/21/20 04/22/20 04/22/20 14:19 09:46 09:46 Creatine Kinase 76 CK-MB (CK-2) 1.11 Troponin I < 0.012 < 0.012 NT-Pro-B Natriuret Pep 2510 H 04/22/20 04/22/20 04/22/20 13:35 13:55 20:34 Creatine Kinase 79 97 CK-MB (CK-2) 0.96 Troponin I < 0.012 NT-Pro-B Natriuret Pep 04/22/20 04/23/20 04/26/20 20:34 10:54 08:58 Creatine Kinase CK-MB (CK-2) 1.04 Troponin I < 0.012 NT-Pro-B Natriuret Pep 3920 H 3840 H 04/29/20 08:15 Creatine Kinase CK-MB (CK-2) Troponin I NT-Pro-B Natriuret Pep 3200 H Impressions: Head CT 04/21/20 13:16 IMPRESSION: MILD CHRONIC CHANGES OF ATROPHY AND MICROVASCULAR ISCHEMIA. NO ACUTE PROCESS. SINUSITIS. EVIDENCE OF ACUTE STROKE: NO. Carotid Doppler Study 04/22/20 00:00 IMPRESSION: NO HEMODYNAMICALLY SIGNIFICANT STENOSIS. Chest X-Ray 04/22/20 00:00 IMPRESSION: Stable chronic changes without definitive superimposed cardiopulmonary process. Assessment & Plan - Diagnosis (1) Near syncope Is this a current diagnosis for this admission?: Yes (2) Generalized weakness Is this a current diagnosis for this admission?: Yes (3) Vertigo, benign paroxysmal Qualifiers: Laterality: unspecified laterality Qualified Code(s): H81.10 - Benign paroxysmal vertigo, unspecified ear Is this a current diagnosis for this admission?: Yes (4) UTI (urinary tract infection) Qualifiers: Urinary tract infection type: site unspecified Hematuria presence: with hematuria Qualified Code(s): N39.0 - Urinary tract infection, site not specified; R31.9 - Hematuria, unspecified Is this a current diagnosis for this admission?: Yes (5) Chronic atrial fibrillation with rapid ventricular response Is this a current diagnosis for this admission?: Yes (6) Urinary retention Is this a current diagnosis for this admission?: Yes (7) BPH (benign prostatic hyperplasia) Qualifiers: Lower urinary tract symptom presence: symptoms present Lower urinary tract symptom detail: urinary retention Qualified Code(s): N40.1 - Benign prostatic hyperplasia with lower urinary tract symptoms; R33.8 - Other retention of urine Is this a current diagnosis for this admission?: Yes (8) COPD (chronic obstructive pulmonary disease) Qualifiers: COPD type: emphysema Emphysema type: unspecified Qualified Code(s): J43.9 - Emphysema, unspecified Is this a current diagnosis for this admission?: Yes (9) HLD (hyperlipidemia) Qualifiers: Hyperlipidemia type: unspecified Qualified Code(s): E78.5 - Hyperlipidemia, unspecified Is this a current diagnosis for this admission?: Yes (10) HTN (hypertension) Qualifiers: Hypertension type: essential hypertension Qualified Code(s): I10 - Essential (primary) hypertension Is this a current diagnosis for this admission?: Yes (11) Rheumatoid arthritis Qualifiers: Laterality: unspecified laterality Is this a current diagnosis for this admission?: Yes (12) Acute bronchitis, bacterial Is this a current diagnosis for this admission?: Yes - Time Time Spent with patient: 25-34 minutes Level of Care: IMCU Medications reviewed and adjusted accordingly: Yes Anticipated discharge: Home with Homehealth Within: Other - Inpatient Certification Based on my medical assessment, after consideration of the patient's comorbidities, presenting symptoms, or acuity I expect that the services needed warrant INPATIENT care.: Yes I certify that my determination is in accordance with my understanding of Medicare's requirements for reasonable and necessary INPATIENT services [42 CFR 412.3e].: Yes Medical Necessity: Significant Comorbidiites Make Outpatient Treatment Too Risky, Need Close Monitoring Due to Risk of Patient Decompensation, Need For Continuous Telemetry Monitoring, Risk of Complication if Not Cared For in Hospital, Risk of Diagnosis Which Will Require Inpatient Eval/Care/Monitoring Post Hospital Care: D/C Regulatory Affairs Consultant Documentation - Plan Summary Plan Summary: Continue IV Aztreonam coverage and benzonatate therapy. I emphasized use of Flutter and incentive spirometer at bedside. Follow up with rating specialist regarding possible cardioversion therapy
[2020-04-30] MEDS: DUTASTERIDE 0.5 MG CAPSULE PO SCH (21:45)
[2020-04-30] MEDS: ATORVASTATIN CALCIUM 40 MG TABLET PO SCH (21:48)
[2020-04-30] MEDS: RIVAROXABAN 10 MG TABLET PO SCH (21:49)
[2020-04-30] MEDS: BENZONATATE 100 MG CAPSULE PO PRN (21:52)
[2020-04-30] MEDS: FLUTICASONE NASAL SPRAY 50 MCG/SPRY 120 SPRAY/16 GM NASL SCH (21:54)
[2020-05-01] MEDS: NORMAL SALINE 1000 ML 1,000 ML IV PRN (01:46)
[2020-05-01] MEDS: AZTREONAM 2 GM in DEXTROSE 5%-WATER 100 ML IV SCH (05:44)
[2020-05-01] MEDS: PANTOPRAZOLE SODIUM 40 MG TABLET.DR PO SCH (05:44)
[2020-05-01 08:39] LABS: ANION GAP 6 (5-19); BLOOD UREA NITROGEN 10 mg/dL (7-20); CALCIUM 8.5 mg/dL (8.4-10.2); CARBON DIOXIDE 24 mmol/L (22-30); CHLORIDE 106 mmol/L (98-107); GLUCOSE 134 mg/dL (75-110); POTASSIUM 4.2 mmol/L (3.6-5.0)
[2020-05-01] MEDS: TAMSULOSIN HCL 0.4 MG CAP.SR.24H PO SCH (10:17)
[2020-05-01] MEDS: FOLIC ACID 1 MG TABLET PO SCH (10:17)
[2020-05-01] MEDS: METOPROLOL TARTRATE 50 MG TABLET PO SCH (10:17)
[2020-05-01] MEDS: SOTALOL HCL 80 MG TABLET PO SCH (10:17)
[2020-05-01] MEDS: FLUTICASONE/VILANTEROL 100-25 MCG/DOSE IH SCH (10:18)
[2020-05-01] MEDS: ASPIRIN 81 MG TABLET, CHEWABLE PO SCH (10:18)
[2020-05-01] MEDS: DILTIAZEM HCL 120 MG CAP.SR.24H PO SCH (10:18)
--- NOTE | 2020-05-01 14:35 | PDOC DISCHARGE SUMMARY ---
Impression - Admit/DC Date/PCP Admission Date/Primary Care Provider: 04/21/20 19:45 SALVADOR YOUNG MD Discharge Date: 05/01/20 - Discharge Diagnosis (1) Near syncope Is this a current diagnosis for this admission?: Yes (2) Generalized weakness Is this a current diagnosis for this admission?: Yes (3) Vertigo, benign paroxysmal Is this a current diagnosis for this admission?: Yes (4) UTI (urinary tract infection) Is this a current diagnosis for this admission?: Yes (5) Chronic atrial fibrillation with rapid ventricular response Is this a current diagnosis for this admission?: Yes (6) Urinary retention Is this a current diagnosis for this admission?: Yes (7) BPH (benign prostatic hyperplasia) Is this a current diagnosis for this admission?: Yes (8) COPD (chronic obstructive pulmonary disease) Is this a current diagnosis for this admission?: Yes (9) HLD (hyperlipidemia) Is this a current diagnosis for this admission?: Yes (10) HTN (hypertension) Is this a current diagnosis for this admission?: Yes (11) Rheumatoid arthritis Is this a current diagnosis for this admission?: Yes (12) Acute bronchitis, bacterial Is this a current diagnosis for this admission?: Yes - Assessment Summary: Patient was admitted for near syncope episode with dizziness and falling to the ground. His initial ED evaluation revealed chronic atrial fibrillation with RVR and urinary retention. He had distance consultation with Dr. Young with addition of Diltiazem and Lopressor to his rate control medication management. He was started on IV Aztreonam coverage due to abnormal urinalysis. His sputum culture grew Pseudomonas and klebsella and urine culture grew Citrobacter Koseri all sensitive to Aztreonam. He was treated for total 10 days. He will be discharged home today and follow up with Dr Young and myself as instructed upon discharge. - Additional Information Resuscitation Status: Full Code Discharge Diet: As Tolerated Discharge Activity: Activity As Tolerated, Slowly Increase Activity Referrals: SALVADOR YOUNG MD [Primary Care Provider] - Follow up as needed SAMUEL AC MD [ACTIVE STAFF] - 05/06/20 10:00 am Prescriptions: Diltiazem HCl [Cardizem Cd 120 mg Capsule] 120 mg PO Q12 #60 cap.sr.24h Tamsulosin HCl [Flomax 0.4 mg Cap.sr] 0.8 mg PO QPM #60 cap.sr.24h Metoprolol Tartrate [Lopressor 50 mg Tablet] 100 mg PO Q12 #60 tablet Home Medications: Aspirin [Aspir-Low] 81 mg PO DAILY 11/13/19 Diphenoxylate HCl/Atrop Sulf [Lomotil 2.5 mg Tablet] 1 tab PO ASDIR PRN 11/13/19 Dutasteride 0.5 mg PO QPM 11/13/19 Fluticasone Propionate [Flonase Nasal [place] 50 Mcg/[place] 16 gm] 2 sprays NASL QPM 11/13/19 Fluticasone/Vilanterol [Breo 100-25 Mcg Ellipta 14 Dose/Dpi] 1 inh IH DAILY 11/13/19 Folic Acid 1 mg PO DAILY 11/13/19 Furosemide [Lasix 20 mg Tablet] 20 mg PO QAM 11/13/19 Methotrexate Sodium [Rheumatrex 2.5 mg Tablet] 15 mg PO [id number] 11/13/19 Nitroglycerin [Nitrostat 0.4 mg (1/150 Gr) Tabs 25/Bottle] 1 tab SL Q5MP PRN 11/13/19 Rivaroxaban [Xarelto] 20 mg PO QPM 11/13/19 Rosuvastatin Calcium 20 mg PO QPM 11/13/19 Sotalol HCl [Betapace 80 mg Tablet] 80 mg PO Q12 11/13/19 Vit C/E/Zn/Coppr/Lutein/Zeaxan [Preservision Areds 2 Softgel] 1 each PO Q12 11/13/19 Benzonatate [Tessalon Perles 100 mg Capsule] 100 mg PO BIDP PRN 04/21/20 Diltiazem HCl [Cardizem Cd 120 mg Capsule] 120 mg PO Q12 #60 cap.sr.24h 05/01/20 Metoprolol Tartrate [Lopressor 50 mg Tablet] 100 mg PO Q12 #60 tablet 05/01/20 Tamsulosin HCl [Flomax 0.4 mg Cap.sr] 0.8 mg PO QPM #60 cap.sr.24h 05/01/20 History of Present Illiness History of Present Illness: KEIRY IVERSON is a 84 year old male patient known to my practice who presented to the ED with complain about feeling dizzy which he described as "the world spinning around him". He reported associated weakness and inability to sustained himself in standing position and found himself right on the floor. he denied associated loss of consciousness, palpitation, or headache. He reported slight left upper chest region marco a and nausea but no vomiting with episode of his dizziness. He denied any definite fever but admitted to intermittent chills and breaking out in sweat. No vomiting or abdominal pain. His initial ED evaluation was remarkable for inability to void urine and eventful placement of Rdz catheter with over 500 ml of urine expelled. He was advised hospitalization for further evaluation and management. His morbidities are as listed below. Hospital Course Hospital Course: Patient was admitted for near syncope episode with dizziness and falling to the ground. His initial ED evaluation revealed chronic atrial fibrillation with RVR and urinary retention. He had distance consultation with Dr. Young with addition of Diltiazem and Lopressor to his rate control medication management. He was started on IV Aztreonam coverage due to abnormal urinalysis. His sputum culture grew Pseudomonas and klebsella and urine culture grew Citrobacter Koseri all sensitive to Aztreonam. He was treated for total 10 days. He will be discharged home today and follow up with Dr Young and myself as instructed upon discharge. Physical Exam Vital Signs: Temp Pulse Resp BP Pulse Ox 97.3 F 129 H 18 129/81 H 94 05/01/20 07:40 05/01/20 07:40 05/01/20 07:40 05/01/20 07:40 05/01/20 07:40 Intake & Output 04/30/20 05/01/20 05/02/20 06:59 06:59 06:59 Intake Total 4036 2110 Output Total 2600 300 Balance 1436 1810 Weight 90.7 kg 90.5 kg General appearance: PRESENT: no acute distress, well-developed, well-nourished Head exam: PRESENT: atraumatic, normocephalic Eye exam: PRESENT: conjunctiva pink. ABSENT: pallor, scleral icterus Mouth exam: PRESENT: moist Respiratory exam: PRESENT: clear to auscultation karthik, decreased breath sounds - at lung bases Cardiovascular exam: PRESENT: irregular rhythm, +S1, +S2. ABSENT: diastolic murmur, rubs, systolic murmur GI/Abdominal exam: PRESENT: normal bowel sounds, soft. ABSENT: distended, guarding, mass, organomegaly, rebound, tenderness Extremities exam: ABSENT: pedal edema Neurological exam: PRESENT: alert, awake, oriented to person, oriented to place, oriented to time, oriented to situation, CN II-XII grossly intact. ABSENT: motor sensory deficit Psychiatric exam: PRESENT: appropriate affect, normal mood. ABSENT: homicidal ideation, suicidal ideation Skin exam: PRESENT: dry, warm Results Laboratory Results: WBC 5.9 10^3/uL (4.0-10.5) 04/24/20 07:31 RBC 3.67 10^6/uL (4.35-5.55) L 04/24/20 07:31 Hgb 11.4 g/dL (13.5-17.0) L 04/24/20 07:31 Hct 33.4 % (37.9-51.0) L 04/24/20 07:31 MCV 91 fl (80-97) 04/24/20 07:31 MCH 31.2 pg (27.0-33.4) 04/24/20 07:31 MCHC 34.2 g/dL (32.0-36.0) 04/24/20 07:31 RDW 14.5 % (11.5-14.0) H 04/24/20 07:31 Plt Count 256 10^3/uL (150-450) 04/24/20 07:31 Lymph % (Auto) 33.6 % (13-45) 04/24/20 07:31 [place] % (Auto) 9.8 % (3-13) 04/24/20 07:31 Eos % (Auto) 3.2 % (0-6) 04/24/20 07:31 Baso % (Auto) 0.2 % (0-2) 04/24/20 07:31 Absolute Neuts (auto) 3.2 10^3/uL (1.7-8.2) 04/24/20 07:31 Absolute Lymphs (auto) 2.0 10^3/uL (0.5-4.7) 04/24/20 07:31 Absolute Monos (auto) 0.6 10^3/uL (0.1-1.4) 04/24/20 07:31 Absolute Eos (auto) 0.2 10^3/uL (0.0-0.6) 04/24/20 07:31 Absolute Basos (auto) 0.0 10^3/uL (0.0-0.2) 04/24/20 07:31 Seg Neutrophils % 53.2 % (42-78) 04/24/20 07:31 PT 18.2 SEC (11.4-15.4) H 04/21/20 14:19 INR 1.49 04/21/20 14:19 Sodium 135.7 mmol/L (137-145) L 05/01/20 07:34 Potassium 4.2 mmol/L (3.6-5.0) 05/01/20 07:34 Chloride 106 mmol/L (98-107) 05/01/20 07:34 Carbon Dioxide 24 mmol/L (22-30) 05/01/20 07:34 Anion Gap 6 (5-19) 05/01/20 07:34 BUN 10 mg/dL (7-20) 05/01/20 07:34 Creatinine 0.65 mg/dL (0.52-1.25) 05/01/20 07:34 Est GFR ( Amer) > 60 (>60) 05/01/20 07:34 Est GFR (MDRD) Non-Af > 60 (>60) 05/01/20 07:34 Glucose 134 mg/dL (75-110) H 05/01/20 07:34 Hemoglobin A1c % 6.4 % (4.7-6.0) H 04/22/20 09:46 Lactic Acid 1.6 mmol/L (0.7-2.1) 04/21/20 17:30 Calcium 8.5 mg/dL (8.4-10.2) 05/01/20 07:34 Magnesium 2.2 mg/dL (1.6-2.3) 04/23/20 10:54 Total Bilirubin 0.7 mg/dL (0.2-1.3) 04/29/20 08:15 Direct Bilirubin 0.0 mg/dL (0.0-0.4) 04/29/20 08:15 Neonat Total Bilirubin Not Reportable 04/29/20 08:15 Neonat Direct Bilirubin Not Reportable 04/29/20 08:15 Neonat Indirect Bili Not Reportable 04/29/20 08:15 AST 20 U/L (17-59) 04/29/20 08:15 ALT 10 U/L (<50) 04/29/20 08:15 Alkaline Phosphatase 74 U/L (38-126) 04/29/20 08:15 Creatine Kinase 97 U/L (55-170) 04/22/20 20:34 CK-MB (CK-2) 1.04 ng/mL (<4.55) 04/22/20 20:34 Troponin I < 0.012 ng/mL 04/22/20 20:34 NT-Pro-B Natriuret Pep 3070 pg/mL (<450) H 05/01/20 07:34 Total Protein 6.1 g/dL (6.3-8.2) L 04/29/20 08:15 Albumin 3.0 g/dL (3.5-5.0) L 04/29/20 08:15 Lipase 342.4 U/L (23-300) H 04/21/20 14:19 Urine Color YELLOW 04/22/20 11:30 Urine Appearance SLIGHTLY-CLOUDY 04/22/20 11:30 Urine pH 5.0 (5.0-9.0) 04/22/20 11:30 Ur Specific [place] 1.024 04/22/20 11:30 Urine Protein NEGATIVE mg/dL (NEGATIVE) 04/22/20 11:30 Urine Glucose (UA) NEGATIVE mg/dL (NEGATIVE) 04/22/20 11:30 Urine Ketones TRACE mg/dL (NEGATIVE) H 04/22/20 11:30 Urine Blood LARGE (NEGATIVE) H 04/22/20 11:30 Urine Nitrite NEGATIVE (NEGATIVE) 04/22/20 11:30 Urine Bilirubin NEGATIVE (NEGATIVE) 04/22/20 11:30 Urine Urobilinogen NEGATIVE mg/dL (<2.0) 04/22/20 11:30 Ur Leukocyte Esterase MODERATE (NEGATIVE) H 04/22/20 11:30 Urine WBC (Auto) 25 /HPF 04/22/20 11:30 Urine RBC (Auto) >182 /HPF 04/22/20 11:30 U Hyaline Cast (Auto) 10 /LPF 04/21/20 17:35 Urine Bacteria (Auto) 1+ /HPF 04/22/20 11:30 Squamous Epi Cells Auto <1 /HPF 04/22/20 11:30 Urine Mucus (Auto) FEW /LPF 04/22/20 11:30 Urine Ascorbic Acid 40 (NEGATIVE) H 04/22/20 11:30 SARS-CoV-2 (PCR) NEGATIVE (NEGATIVE) 04/21/20 21:40 04/21/20 04/22/20 04/22/20 14:19 09:46 13:35 CK-MB (CK-2) 1.11 0.96 Troponin I < 0.012 < 0.012 < 0.012 NT-Pro-B Natriuret Pep 2510 H 04/22/20 04/23/20 04/26/20 20:34 10:54 08:58 CK-MB (CK-2) 1.04 Troponin I < 0.012 NT-Pro-B Natriuret Pep 3920 H 3840 H 04/29/20 05/01/20 08:15 07:34 CK-MB (CK-2) Troponin I NT-Pro-B Natriuret Pep 3200 H 3070 H Impressions: Head CT 04/21/20 13:16 IMPRESSION: MILD CHRONIC CHANGES OF ATROPHY AND MICROVASCULAR ISCHEMIA. NO ACUTE PROCESS. SINUSITIS. EVIDENCE OF ACUTE STROKE: NO. Chest X-Ray 04/21/20 14:49 IMPRESSION: Stable, chronic changes. Carotid Doppler Study 04/22/20 00:00 IMPRESSION: NO HEMODYNAMICALLY SIGNIFICANT STENOSIS. Chest X-Ray 04/22/20 00:00 IMPRESSION: Stable chronic changes without definitive superimposed cardiopulmonary process. Plan Health Concerns: Worsening rate control for his chronic atrial fibrillation, difficulty with breathing due to baseline interstitial lung disease and COPD. Plan of Treatment: Follow up with Dr. Young for consideration of possible cardioversion if his heart rate remain uncontrolled on his current medication management. Goals: Reduce readmission risk due to his underlying medical morbidities. Time Spent: Greater than 30 Minutes - Care coordination with his sales management intern, Dr. Young and bedside discussion with patient and daughter. Stroke Is this a Stroke Patient?: No Acute Heart Failure - Is this a Heart Failure Patient?: No
[2020-05-01 15:14] VITALS: BP 100/72
[2020-05-02] MEDS ORDERED: METHOTREXATE SODIUM 2.5 MG TABLET PO SCH (09:00)
== END 2020-05-01 15:42 | disposition home or self-care (01) | DRG 309 ==
LOC: ER 12:35 → EH 19:45 → 5 04-22 00:52
PROVIDERS: ADMIT Internal Medicine Geriatric Medicine; ATTEND Internal Medicine Geriatric Medicine
DX: I48.20 Chronic atrial fibrillation, unspecified (principal); N39.0 Urinary tract infection, site not specified; H81.10 Benign paroxysmal vertigo, unspecified ear; I25.10 Atherosclerotic heart disease of native coronary artery without angina pectoris; E78.00 Pure hypercholesterolemia, unspecified; I10 Essential (primary) hypertension; R33.9 Retention of urine, unspecified; R31.9 Hematuria, unspecified; J43.9 Emphysema, unspecified; J20.9 Acute bronchitis, unspecified; N40.1 Benign prostatic hyperplasia with lower urinary tract symptoms; H35.30 Unspecified macular degeneration; M06.9 Rheumatoid arthritis, unspecified; I25.2 Old myocardial infarction; Z20.828 Contact with and (suspected) exposure to other viral communicable diseases; Z95.5 Presence of coronary angioplasty implant and graft; Z79.01 Long term (current) use of anticoagulants; Z79.82 Long term (current) use of aspirin; Z79.899 Other long term (current) drug therapy
CPT/HCPCS: 36415; 70450; 71045; 80048; 80053; 81001; 82550; 82553; 83036; 83605; 83690; 83735; 83880; 84484; 85025; 85610; 87040; 87070; 87077; 87086; 87088; 87186; 87205; 87635; 93005; 93010; 93306; 93880; 94667; 94668; 94799; 96360; 96372; 99285; C9803; J2405; J3490; J7030; J7060

== ENCOUNTER → 2020-07-08 | Outpatient (CLI) | payer MEDICARE ==
[2020-07-08 09:54] LABS: HEMATOCRIT 34.7 % (37.9-51.0); HEMOGLOBIN 11.9 g/dL (13.5-17.0); MEAN CORPUSCULAR HEMOGLOBIN 30.8 pg (27.0-33.4); MEAN CORPUSCULAR HGB CONC 34.4 g/dL (32.0-36.0); MEAN CORPUSCULAR VOLUME 89 fl (80-97); PLATELET COUNT 262 10^3/uL (150-450); RED BLOOD COUNT 3.88 10^6/uL (4.35-5.55); RED CELL DISTRIBUTION WIDTH 15.8 % (11.5-14.0); WHITE BLOOD COUNT 7.6 10^3/uL (4.0-10.5)
[2020-07-08 09:57] LABS: APPEARANCE,URINE CLEAR; BILIRUBIN,URINE NEGATIVE (NEGATIVE); COLOR,URINE STRAW; GLUCOSE, URINE NEGATIVE (NEGATIVE); KETONES,URINE NEGATIVE (NEGATIVE); LEUKOCYTE ESTERASE,URINE NEGATIVE (NEGATIVE); NITRITE,URINE NEGATIVE (NEGATIVE); PROTEIN,URINE NEGATIVE (NEGATIVE); UROBILINOGEN,URINE NEGATIVE mg/dL (<2.0)
[2020-07-08 10:21] LABS: ALBUMIN 4.1 g/dL (3.5-5.0); ALKALINE PHOSPHATASE 85 U/L (38-126); ANION GAP 10 (5-19); ASPARTATE AMINO TRANSFERASE 28 U/L (17-59); BILIRUBIN,DIRECT 0.3 mg/dL (0.0-0.4); BILIRUBIN,TOTAL 0.9 mg/dL (0.2-1.3); BLOOD UREA NITROGEN 11 mg/dL (7-20); CALCIUM 8.5 mg/dL (8.4-10.2); CARBON DIOXIDE 26 mmol/L (22-30); CHLORIDE 102 mmol/L (98-107); GLUCOSE 122 mg/dL (75-110); POTASSIUM 4.2 mmol/L (3.6-5.0); TOTAL PROTEIN 7.2 g/dL (6.3-8.2)
== END ==
LOC: OD 08:35
PROVIDERS: ATTEND Internal Medicine Cardiovascular Disease
DX: I48.0 Paroxysmal atrial fibrillation (principal); Z79.01 Long term (current) use of anticoagulants
CPT/HCPCS: 36415; 80048; 80076; 81001; 82272; 83735; 85027; 85730

== ENCOUNTER → 2020-10-23 | Outpatient (CLI) | payer MEDICARE ==
[2020-10-23 09:26] LABS: HEMATOCRIT 35.1 % (37.9-51.0); HEMOGLOBIN 11.9 g/dL (13.5-17.0); MEAN CORPUSCULAR HEMOGLOBIN 30.9 pg (27.0-33.4); MEAN CORPUSCULAR HGB CONC 33.9 g/dL (32.0-36.0); MEAN CORPUSCULAR VOLUME 91 fl (80-97); PLATELET COUNT 282 10^3/uL (150-450); RED BLOOD COUNT 3.86 10^6/uL (4.35-5.55); RED CELL DISTRIBUTION WIDTH 14.4 % (11.5-14.0); WHITE BLOOD COUNT 7.7 10^3/uL (4.0-10.5)
[2020-10-23 09:27] LABS: APPEARANCE,URINE CLEAR; BILIRUBIN,URINE NEGATIVE (NEGATIVE); COLOR,URINE YELLOW; GLUCOSE, URINE NEGATIVE (NEGATIVE); KETONES,URINE NEGATIVE (NEGATIVE); LEUKOCYTE ESTERASE,URINE NEGATIVE (NEGATIVE); NITRITE,URINE NEGATIVE (NEGATIVE); PROTEIN,URINE NEGATIVE (NEGATIVE); URINE SPECIFIC GRAVITY 1.023; UROBILINOGEN,URINE NEGATIVE mg/dL (<2.0)
[2020-10-23 09:48] LABS: ALBUMIN 3.8 g/dL (3.5-5.0); ALKALINE PHOSPHATASE 88 U/L (38-126); ANION GAP 5 (5-19); ASPARTATE AMINO TRANSFERASE 23 U/L (17-59); BILIRUBIN,DIRECT 0.2 mg/dL (0.0-0.4); BILIRUBIN,TOTAL 0.8 mg/dL (0.2-1.3); BLOOD UREA NITROGEN 13 mg/dL (7-20); CALCIUM 8.6 mg/dL (8.4-10.2); CARBON DIOXIDE 31 mmol/L (22-30); CHLORIDE 104 mmol/L (98-107); GLUCOSE 121 mg/dL (75-110); POTASSIUM 4.6 mmol/L (3.6-5.0); TOTAL PROTEIN 7.1 g/dL (6.3-8.2)
[2020-10-26 14:52] LABS: CHOLESTEROL 111.35 mg/dL (0-200); TRIGLYCERIDES 119 mg/dL (<150)
[2020-10-26 15:03] LABS: DIRECT LDL 54 mg/dL (<100)
== END ==
LOC: OD 08:35
PROVIDERS: ATTEND Internal Medicine Cardiovascular Disease
DX: I48.0 Paroxysmal atrial fibrillation (principal); Z79.899 Other long term (current) drug therapy
CPT/HCPCS: 36415; 80048; 80061; 80076; 81001; 82272; 83735; 85027; 85730